=== PATIENT | female | born 1950 | race Caucasian/White ===

== ENCOUNTER 2018-03-29 08:20 | Emergency (ER) | payer OTHER, SELFPAY ==
[2018-03-29 08:22] VITALS: BP 120/68; PULSE 53; RESP 20; TEMP 36.4; O2SAT 98; BMI 15.3
--- NOTE | 2018-03-29 08:26 | ED.BACK ---
HPI - Back Pain/Injury General Chief Complaint: Back Pain/Injury Stated Complaint: Lower back px Time Seen by Provider: 03/29/18 08:25 Source: patient Mode of arrival: EMS Limitations: no limitations History of Present Illness HPI Narrative: Patient presents to the emergency department today via EMS for evaluation of an exacerbation of chronic back pain. She has a longstanding history of back pain and yesterday was bending and twisting and felt pain in her lower back. Today she was in such pain she could not get out of bed. [facility] brought her here, placed an IV and administered fentanyl 50 mcg IV prior to arrival MD Complaint: back pain and back injury Onset (ago): day(s) Duration: constant Similar Symptoms Previously: Yes Location: lumbar spine Severity: moderate Quality: burning and sharp Radiation: buttocks Severity scale (1-10): 5 Relieving factors: immobilization and medication Exacerbating factors: movement Context: turning/twisting Associated symptoms: denies other symptoms Related Data Home Medications Medication Instructions Recorded Confirmed diltiazem HCl 30 mg PO ACHS #0 01/01/18 03/29/18 Peak Flow Meter ea IH PRN PRN 03/29/18 Previous Rx's Medication Instructions Recorded tiotropium bromide [Spiriva with 1 puff INH QDAY #1 ea 12/27/17 HandiHaler] hydrocodone-acetaminophen 1 tab PO Q4-6H PRN #14 tab 03/29/18 methylprednisolone [Medrol (Darian)] See Label Instructions PO PER PKG 03/29/18 DIR #21 each Allergies Allergy/AdvReac Type Severity Reaction Status Date / Time hydrocodone [From VICODIN] Allergy Intermediate OVER Verified 03/29/18 08:22 STIMULATION Review of Systems Review of Systems All systems reviewed & are unremarkable except as noted in HPI and below Constitutional Denies chills, Denies fever(s), Denies lethargy and Denies weakness Eyes Denies change in vision, Denies eye discharge, Denies irritation and Denies loss of vision Cardiovascular Denies chest pain, Denies irregular heart rhythm, Denies lightheadedness, Denies palpitations and Denies orthopnea Gastrointestinal Gastrointestinal: Denies abdominal pain, Denies change in bowel habits, Denies diarrhea, Denies nausea and Denies vomiting Genitourinary Denies hematuria, Denies flank pain, Denies urinary incontinence and Denies urinary urgency Musculoskeletal Reports back pain, Reports limited range of motion and Reports radiating pain into limb Integumentary/Breasts Reports system reviewed and no additional complaints, except as docu Neurologic Reports system reviewed and no additional complaints, except as docu, Denies loss of vision and Denies weakness Endocrine Denies palpitations Hematologic/Lymphatic Denies easy bruising PFSH Family History Father Hypertension Type 2 diabetes mellitus Mother Hypertension Dementia Exam Narrative Exam Narrative: Pleasant 67-year-old female in obvious pain. Const General: cooperative, No healthy appearing, No comfortable, well developed, in distress, disheveled and frail appearing Nutritional Appearance: cachectic and malnourished Orientation: alert, awake, oriented x3 and not confused HENMT Head: normal to inspection Nose: external nose normal Face and sinus: normal facial exam Eyes General: appearance normal, both eyes and all related structures Eyelids: eyelids normal Pupils: PERRL EOM: EOM intact bilaterally Resp Effort & Inspection: normal respiratory effort Auscultation: diminished lung sounds Cardio Rate: regular rate Rhythm: regular rhythm Heart Sounds: no click, no gallops, no murmurs and no rubs Pulses: normal peripheral pulses GI Inspection: non-distended Palpation: soft, no hepatosplenomegaly, No guarding, No pulsatile mass and No tender Auscultation: normal bowel sounds Back/Spine/Pelvis Back: back tenderness and No CVA tenderness Skin General: no rashes or lesions noted Neuro General: alert, awake and oriented x3 Cognition: normal cognition Speech: speech normal Motor: muscle tone normal throughout and strength 5/5 throughout Sensory Exam: no sensory deficits noted DTR's: Rt Patellar: 2+ and Lt Patellar: 2+ Coordination: [id number] test normal Extrem General: normal to inspection MDM - Back Pain/Injury MDM Narrative Medical decision making narrative: Patient shows no sign of cauda equina or other true spinal emergency such as epidural abscess. She is able to ambulate after the above-stated therapies. Differential Diagnosis Differential diagnosis: Likely lumbar radiculopathy, sciatica, pyelonephritis, thoracic back pain and discitis Medical Records Attestation: I reviewed the patient's medical records. Course Orders Ordered: Discontinued Medications Hydromorphone HCl (Dilaudid) 1 mg IV NOW ONE Stop: 03/29/18 10:34 Last Admin: 03/29/18 11:02 Dose: 1 mg Ketorolac Tromethamine (Toradol) 15 mg IV NOW ONE Stop: 03/29/18 08:48 Last Admin: 03/29/18 09:11 Dose: 15 mg Methylprednisolone (Solu-Medrol 125 Mg Vial) 125 mg IV NOW ONE Stop: 03/29/18 08:49 Last Admin: 03/29/18 09:11 Dose: 125 mg Ondansetron HCl (Zofran) 4 mg IV NOW ONE Stop: 03/29/18 11:01 Last Admin: 03/29/18 11:02 Dose: 4 mg Reevaluation(s) Reevaluation #1: Patient experienced little relief after Toradol and Solu-Medrol but is able to ambulate without difficulty with Dilaudid. She will be sent home with a small prescription of hydrocodone and a Medrol Dosepak with encouragement to follow up closely with her primary care provider Time: 12:15 Last Vital Signs Temp 97.5 F L 03/29/18 08:22 Pulse 62 03/29/18 12:30 Resp 16 03/29/18 12:30 BP 141/84 H 03/29/18 12:30 Pulse Ox 96 03/29/18 12:30 Discharge Plan Departure Patient Disposition: Home, Self-Care Clinical Impression: Acute exacerbation of chronic low back pain Discharge Date/Time: 03/29/18 12:35 Interventions: ED Discharge Assessment Last Done: 03/29/18 12:35 Instructions: DI for Low Back Pain Activity Restrictions/Additional Instructions: You have been prescribed narcotic medications. While on these medications you cannot drive or operate heavy machinery. Additionally you cannot sign legal documents or perform any duties such as this. 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 Please understand that we cannot provide further refills of narcotics or controlled substances through the ED and your pain management will need to be through your Primary Care Provider Prescriptions: New hydrocodone-acetaminophen 5-325 mg tablet 1 tab PO Q4-6H PRN (Reason: pain) Qty: 14 RF: 0 methylprednisolone [Medrol (Darian)] 4 mg tablets,dose pack See Label Instructions PO PER PKG DIR Qty: 21 RF: 0 No Action tiotropium bromide [Spiriva with HandiHaler] 18 MCG capsule, w/inhalation device 1 puff INH QDAY Qty: 1 RF: 2 diltiazem HCl 30 MG tablet 30 mg PO ACHS Qty: 0 RF: 0 Peak Flow Meter IH PRN PRN (Reason: Dyspnea) RF: 0
[2018-03-29] MEDS: methylPREDNISolone 125 MG/2 ML VIAL IV (09:11)
[2018-03-29] MEDS: KETOROLAC 15 MG/ML VIAL IV (09:11)
[2018-03-29 09:29] VITALS: BP 160/52; PULSE 55; RESP 16; O2SAT 98
--- NOTE | 2018-03-29 10:37 | PC.NURSE ---
PT refused to ambulate. Stated that she was in too much pain.
[2018-03-29 11:00] VITALS: BP 143/58; PULSE 58; O2SAT 100
[2018-03-29] MEDS: HYDROMORPHONE 1 MG INJ IV (11:02)
[2018-03-29] MEDS: ONDANSETRON 4 MG/2 ML INJ IV (11:02)
[2018-03-29 11:22] VITALS: BP 143/58; PULSE 58; RESP 16
[2018-03-29 11:30] VITALS: BP 137/81; PULSE 58; RESP 15; O2SAT 97
[2018-03-29 12:30] VITALS: BP 141/84; PULSE 62; RESP 16; O2SAT 96
== END 2018-03-29 12:35 | disposition home or self-care (01) ==
PROVIDERS: Emergency Provider Emergency Medicine; PCP Family Medicine
DX: M54.5 Low back pain (principal); G89.29 Other chronic pain
CPT/HCPCS: 96374; 96375; 99283; 99284; J1170; J1885; J2405; J2930

== ENCOUNTER → 2019-04-02 11:29 | Outpatient (CLI) | payer OTHER, SELFPAY | PROVIDERS: PCP Family Medicine; Visit Provider Family Medicine | DX: R20.2 Paresthesia of skin (principal) | CPT/HCPCS: 95885; 95886; 95909 ==

== ENCOUNTER → 2019-08-25 10:12 | Outpatient (CLI) | payer OTHER, SELFPAY ==
[2019-08-25 10:49] LABS: BUN Creatinine Ratio 13.3 (6-22); Blood Urea Nitrogen 8 mg/dL (7-17); Calcium 9.8 mg/dL (8.4-10.2); Carbon Dioxide 31 mmol/L (22-32); Chloride 101 mmol/L (98-107); Estimated Glomerular Filt Rate > 60.0 mL/min (>60); Glucose 115 mg/dL (80-110); HEMOLYSIS < 15 (0-50); Potassium 3.9 mmol/L (3.4-5.1); Sodium 142 mmol/L (137-145)
--- NOTE | 2019-08-25 11:06 | DI.CT.S_ITS ---
PROCEDURE: CT CHEST W CON INDICATIONS: Lung Nodule TECHNIQUE: After the administration of intravenous contrast, 5 mm thick sections acquired from the pulmonary apices to the posterior costophrenic angles. 1 mm axial lung, 5 mm thick coronal and sagittal reformats and 7 mm axial MIP were acquired. For radiation dose reduction, the following was used: automated exposure control, adjustment of mA and/or kV according to patient size. COMPARISON: CT chest 02/21/2017, 02/14/2016. FINDINGS: Image quality: Excellent. Lungs and pleura: Moderate centrilobular emphysema. A few scattered pulmonary nodules: -Right upper lobe juxtapleural ill-defined nodular opacity, (3/41), unchanged since 2016 and may represent pleural apical scarring. -Small nodular opacity in the medial right upper lobe, (3/76), unchanged. -Calcified granuloma in the right lower lobe, (3/261), unchanged. -The previously described right middle lobe nodule is no longer identified. No new larger pulmonary nodules. No mass. Minimal thickening in the lingula. Minimal thickening along the right major fissure. No acute air space opacities. No pleural effusions or pneumothorax. Central and peripheral airways are patent and normal in caliber. Mediastinum: Heart size is prominent. No pericardial effusion. No mediastinal or hilar adenopathy by size criteria. Thoracic aorta and central pulmonary arteries are normal in size. No central pulmonary embolism. Esophagus is normal in caliber. No hiatal hernia. Bones and chest wall: No suspicious bony lesions. Thoracic spine DDD. No vertebral body compression fractures. No axillary or supraclavicular adenopathy by size criteria. Thyroid gland demonstrates a left lobe nodule measuring 1.1 cm, (2/90), and lobe nodule measuring 1.4 cm, (2/7). The right thyroid nodule appears larger than the CT from 2016. Abdomen: Visualized upper abdominal solid organs appear normal. Upper abdominal bowel loops are normal in caliber. IMPRESSION: 1. Small nodular opacities are stable compared to 2016 suggesting a benign etiology. No new or enlarging nodule. There is moderate centrilobular emphysema. The patient may qualifies for annual CT lung cancer screening. 2. Bilateral thyroid nodules. Thyroid ultrasound is recommended for further evaluation. Dictated by: Leeroy Goodwin M.D. on 08/25/2019 at 12:52 Approved by: Leeroy Goodwin M.D. on 08/25/2019 at 13:10
== END ==
PROVIDERS: PCP Family Medicine; Visit Provider Family Medicine
DX: R91.1 Solitary pulmonary nodule (principal); J43.2 Centrilobular emphysema; E04.2 Nontoxic multinodular goiter; F17.209 Nicotine dependence, unspecified, with unspecified nicotine-induced disorders
CPT/HCPCS: 36415; 71260; 80048; Q9967

== ENCOUNTER → 2019-09-16 12:11 | Outpatient (CLI) | payer OTHER, SELFPAY ==
--- NOTE | 2019-09-16 12:12 | DI.MG.S_ITS ---
BILATERAL DIGITAL SCREENING MAMMOGRAM 3D/2D WITH CAD: 09/16/2019 CLINICAL: Routine screening. Comparison is made to exams dated: 02/22/2016 mammogram, 10/06/2014 mammogram, and 09/08/2013 mammogram - [facility]. The tissue of both breasts is extremely dense, which lowers the sensitivity of mammography. Current study was also evaluated with a Computer Aided Detection (CAD) system. There are benign calcifications in both breasts. There also is a biopsy clip in the left breast. No significant masses, calcifications, or other findings are seen in either breast. There has been no significant interval change. IMPRESSION: There is no mammographic evidence of malignancy. A 1 year screening mammogram is recommended. This exam was interpreted at Station ID: [id number]. NOTE: For mammograms, a report in lay terms will be sent to the patient. Approximately 15% of breast malignancies will not be visualized mammographically. In the management of a palpable breast mass, a negative mammogram must not discourage biopsy of a clinically suspicious lesion. Electronically Signed By: Osmani coffey/mario:09/16/2019 13:04:25 letter sent: Normal Exam ACR BI-RADS Category 2: Benign Finding(s) 3342F
--- NOTE | 2019-09-16 12:12 | DI.US.S_ITS ---
PROCEDURE: US THYROID INDICATIONS: THYROID NODULE SEEN ON CT TECHNIQUE: Real-time scanning was performed of the thyroid gland, with image documentation. COMPARISON: [facility], CT, CT CHEST W CON, 08/25/2019, 11:33. FINDINGS: The Right: Thyroid lobe measures 3.8 x 1.8 x 1.6 cm, and is homogeneous in echotexture. Left: Thyroid lobe measures 3.2 x 1.4 x 1.6 cm, and is homogenous in echotexture. Isthmus: 3.0 mm thick. Nodule number: 1 Location: Left inferior Size: 1.3 x 1.0 x 1.0 cm. Composition: Predominantly solid Echogenicity: Hypoechoic Shape: wider than tall. Margins: Smooth Echogenic foci: Internal punctate echogenic foci Total points: 7 ACR TI-RADS category: Highly suspicious Nodule number: 2 Location: Left mid Size: 0.9 x 0.9 x 0.6 cm. Composition: Predominantly solid Echogenicity: Hypoechoic Shape: wider than tall. Margins: Smooth Echogenic foci: Internal punctate echogenic foci Total points: 7 ACR TI-RADS category: Highly suspicious Nodule number: 3 Location: Right superior Size: 1.5 mg 0.4 x 1.1 cm. Composition: Predominantly solid Echogenicity: Hypoechoic Shape: wider than tall. Margins: Smooth Echogenic foci: None Total points: 4 ACR TI-RADS category: Moderately suspicious IMPRESSION: Bilateral thyroid nodules as above. Recommend sonographic directed fine needle aspiration involving the left # 1 thyroid nodule and continued sonographic surveillance as detailed below. ACR TI-RADS definitions and recommendations: TI-RADS 1 (benign): 0 points. FNA not needed. TI-RADS 2 (not suspicious): 2 points. FNA not needed. TI-RADS 3 (mildly suspicious): 3 points. * FNA if 2.5 cm or larger, follow up if 1.5 cm or larger (at 1, 3, and 5 years). TI-RADS 4 (moderately suspicious): 4-6 points. * FNA if 1.5 cm or larger, follow up if 1 cm or larger (at 1, 2, 3, and 5 years). TI-RADS 5 (highly suspicious): 7 points or more. * FNA if 1 cm or larger, follow up if 0.5 cm or larger (every year for 5 years). Dictated by: Iván PECK Interpreted: Bharat Sanchez MD on 09/16/2019 at 14:55 Approved by: Bharat Sanchez M.D. on 09/17/2019 at 11:27
== END ==
PROVIDERS: PCP Family Medicine; Visit Provider Family Medicine
DX: Z12.31 Encounter for screening mammogram for malignant neoplasm of breast (principal); E04.2 Nontoxic multinodular goiter
CPT/HCPCS: 76536; 77063; 77067

== ENCOUNTER → 2019-09-24 11:10 | Outpatient (CLI) | payer OTHER, SELFPAY ==
[2019-09-24 13:14] LABS: TSH w/ Reflex to FT4 0.48 uIU/mL (0.47-4.68)
== END ==
PROVIDERS: PCP Family Medicine; Visit Provider Family Medicine
DX: I10 Essential (primary) hypertension (principal); M79.7 Fibromyalgia; R91.1 Solitary pulmonary nodule
CPT/HCPCS: 36415; 84443

== ENCOUNTER → 2020-01-05 11:26 | Outpatient (CLI) | payer OTHER, MEDICAID, SELFPAY ==
--- NOTE | 2020-01-05 11:30 | DI.RAD.S_ITS ---
PROCEDURE: XR CHEST 2V INDICATIONS: cough, dyspnea TECHNIQUE: 2 views of the chest were acquired. COMPARISON: [facility], , CHEST 2 VIEW, 01/25/2016, 11:00. FINDINGS: Surgical changes and devices: None. Lungs and pleura: Lungs are clear. No pleural effusions or pneumothorax. Hyperexpansion suggestive of COPD. There is scarring of the costophrenic angles. Mediastinum: Mediastinal contours are normal. Heart size is normal. Bones and chest wall: No suspicious bony abnormalities. Soft tissues appear unremarkable. IMPRESSION: No acute pulmonary process. Dictated by: Radha Garcia M.D. on 01/05/2020 at 14:06 Approved by: Radha Garcia M.D. on 01/05/2020 at 14:09
[2020-01-05 13:57] LABS: Blood Urea Nitrogen 8 mg/dL (7-17); Calcium 9.5 mg/dL (8.4-10.2); Carbon Dioxide 27 mmol/L (22-32); Chloride 103 mmol/L (98-107); Estimated Glomerular Filt Rate > 60.0 mL/min (>60); Glucose 133 mg/dL (80-110); HEMOLYSIS < 15 (0-50); Potassium 3.9 mmol/L (3.4-5.1); Sodium 140 mmol/L (137-145)
[2020-01-05 14:44] LABS: Vitamin D 25 Hydroxy (D3) < 12.8 ng/mL (30.0-100.0)
== END ==
PROVIDERS: PCP Family Medicine; Referring Provider Family Medicine; Visit Provider Family Medicine
DX: R06.00 Dyspnea, unspecified (principal); R05 Cough; M81.0 Age-related osteoporosis without current pathological fracture; M85.80 Other specified disorders of bone density and structure, unspecified site; I10 Essential (primary) hypertension
CPT/HCPCS: 36415; 71046; 80048; 82306

== ENCOUNTER → 2020-01-15 10:43 | Outpatient (CLI) | payer OTHER, MEDICAID, SELFPAY | PROVIDERS: PCP Family Medicine; Referring Provider Family Medicine; Visit Provider Family Medicine | DX: R05 Cough (principal); R06.00 Dyspnea, unspecified | CPT/HCPCS: 87070; 87205 ==

== ENCOUNTER → 2020-02-24 11:24 | Outpatient (CLI) | payer OTHER, MEDICAID, SELFPAY ==
[2020-02-24 11:52] LABS: Add Manual Diff / Slide Review NO; Basophils Absolute Auto 100 /uL (0-100); Basophils Percent Auto 1.2 % (0-2); Eosinophils Absolute Auto 100 /uL (0-450); Eosinophils Percent Auto 1.8 % (2-4); Hematocrit 42.3 % (36-46); Hemoglobin 14.3 g/dL (12.0-16.0); Lymphocytes Absolute Auto 1900 /uL (1100-4500); Lymphocytes Percent Auto 28.8 % (25-40); Mean Corpuscular HGB Conc 33.9 % (30-36); Mean Corpuscular Hemoglobin 29.5 PG (26-34); Mean Corpuscular Volume 87.1 fL (80-100); Monocytes Absolute Auto 600 /uL (0-900); Monocytes Percent Auto 8.5 % (3-14); Neutrophils Absolute Auto 3900 /uL (1500-7000); Neutrophils Percent Auto 59.7 % (50-75); Platelet Count 231 X10^3/uL (150-400); Red Blood Cell Count 4.86 X10^6/uL (4.0-5.2); Red Cell Distribution Width 13.8 % (11.6-14.8); White Blood Cell Count 6.6 X10^3/uL (4.5-11.0)
[2020-02-24 12:04] LABS: Erythrocyte Sedimentation Rate 10 MM/HR (0-20)
[2020-02-24 12:12] LABS: C-Reactive Protein Quant < 0.5 mg/dL (<1.0)
[2020-02-24 13:00] LABS: TSH w/ Reflex to FT4 0.56 uIU/mL (0.47-4.68)
== END ==
PROVIDERS: PCP Family Medicine; Referring Provider Family Medicine; Visit Provider Family Medicine
DX: E04.1 Nontoxic single thyroid nodule (principal); F17.209 Nicotine dependence, unspecified, with unspecified nicotine-induced disorders; R61 Generalized hyperhidrosis
CPT/HCPCS: 36415; 84443; 85025; 85651; 86140

== ENCOUNTER → 2020-09-07 11:45 | Outpatient (CLI) | payer OTHER, MEDICAID, SELFPAY ==
[2020-09-07 12:45] LABS: Blood Urea Nitrogen 8 mg/dL (7-17); Calcium 9.8 mg/dL (8.4-10.2); Carbon Dioxide 29 mmol/L (22-32); Chloride 104 mmol/L (98-107); Estimated Glomerular Filt Rate > 60.0 mL/min (>60); Glucose 117 mg/dL (80-110); HEMOLYSIS < 15 (0-50); Sodium 140 mmol/L (137-145)
[2020-09-07 12:58] LABS: Vitamin D 25 Hydroxy (D3) 31.4 ng/mL (30.0-100.0)
[2020-09-08 05:45] LABS: Alpha 1 Anti Trypsin 159 mg/dL (101-187)
[2020-09-13 09:15] LABS: Alanine Aminotransferase 13 IU/L (<35); Albumin 4.4 g/dL (3.5-5.0); Albumin Globulin Ratio 1.3 (1.0-2.8); Alkaline Phosphatase 65 U/L (38-126); Aspartate Aminotransferase 24 IU/L (14-36); BUN Creatinine Ratio 14.8 (6-22); Bilirubin Total 0.5 mg/dL (0.2-1.3); Blood Urea Nitrogen 8 mg/dL (7-17); Calcium 9.9 mg/dL (8.4-10.2); Carbon Dioxide 27 mmol/L (22-32); Chloride 106 mmol/L (98-107); Estimated Glomerular Filt Rate > 60.0 mL/min (>60); Globulin 3.5 g/dL (1.7-4.1); Glucose 122 mg/dL (80-110); HEMOLYSIS < 15 (0-50); Potassium 3.9 mmol/L (3.4-5.1); Sodium 141 mmol/L (137-145); Total Protein 7.9 g/dL (6.3-8.2)
== END ==
PROVIDERS: PCP Family Medicine; Referring Provider Family Medicine; Visit Provider Family Medicine
DX: M81.0 Age-related osteoporosis without current pathological fracture (principal); M85.80 Other specified disorders of bone density and structure, unspecified site; Z83.49 Family history of other endocrine, nutritional and metabolic diseases; I10 Essential (primary) hypertension
CPT/HCPCS: 36415; 80048; 80053; 82103; 82306

== ENCOUNTER → 2020-10-12 12:30 | Oncology outpatient (ONC) | payer OTHER, MEDICAID, SELFPAY ==
[2020-10-12 12:50] VITALS: BP 140/62; PULSE 67; RESP 16; TEMP 36.7; O2SAT 97
[2020-10-12] MEDS: ZOLEDRONIC ACID 5 MG in SODIUM CHLORIDE 0.9% 100 ML 425 ML IV (13:17)
== END ==
PROVIDERS: PCP Family Medicine; Referring Provider Family Medicine; Visit Provider Family Medicine
DX: M81.0 Age-related osteoporosis without current pathological fracture (principal)
CPT/HCPCS: 96365; J3489

== ENCOUNTER → 2021-02-08 13:02 | Outpatient (CLI) | payer OTHER, MEDICAID, SELFPAY ==
--- NOTE | 2021-03-01 11:13 | PM.CARDMON.1 ---
Certified Professional Midwife Report Referral & Results Date Patient Seen: 02/08/21 Requesting provider: Caroline Watkins Indication: Bradycardia Duration of monitoring (days): 7 Diary information: there were 7 patient triggered events and 6 patient diary entries Patient triggered events were associated with (within 45 seconds) sinus rhythm, PACs, and PVCs Patient diary events were associated with ( within 45 seconds) sinus rhythm and PACs Data: minimum heart rate identified was 47 beats per minute at 11:49 on 02/15/2021 Maximum sinus heart rate was 102 beats per minute at 13:30 on 02/08/2021 Maximum overall heart rate was 152 beats per minute at 08:20 on 02/13/2021 during a run of nonsustained ventricular tachycardia Less than 1% of identified beats were ventricular or supraventricular ectopic in origin, which would classify them as rare. There was 1 run of nonsustained monomorphic ventricular tachycardia as above with a duration of 5 beats at a rate of 150 beats per minute Therefore runs of SVT the fastest being at 152 beats per minute and 9 beats in duration which was also the longest run No pauses Overall patient's maximum heart rate somewhat limited but minimum heart rate not necessarily bradycardic Impression: 7 day retail gift card merchandising showing 1 run of nonsustained monomorphic ventricular tachycardia as above and very rare very short runs of SVT Otherwise rare PACs and PVCs Clinical correlation suggested
== END ==
PROVIDERS: PCP Family Medicine; Referring Provider Family Medicine; Visit Provider Family Medicine
DX: R00.1 Bradycardia, unspecified (principal); I48.91 Unspecified atrial fibrillation
CPT/HCPCS: 93242; 93244

== ENCOUNTER → 2021-02-22 13:12 | Outpatient (CLI) | payer OTHER, MEDICAID, SELFPAY ==
--- NOTE | 2021-02-22 13:16 | DI.ECHO.S_ITS ---
[place] [facility]---------+ [facility] +---------+ : : [address] : : : : [id number] : : : : Phone: [phone] Echocardiogram Report + + :Name: LALITHA MARMOLEJO Study Date: 02/22/2021 Height: 62 in : :[facility] ReadingLocation: Weight: 85 lb : : Gender: Female BSA: 1.3 m2 : :: 1950 Age: 70 yrs BP: 160/82 mmHg: :Reason For Study: BRADYCARDIA : :Ordering Physician: FAITH, : :PATY Performed By: Meredith Byrnes : :Referring: PATY CUEVAS : + + Interpretation Summary 1) Normal left ventricular thickness, size, wall motion, and systolic function (EF 60-65%). 2) Normal right ventricular size and function. 3) There is mild aortic regurgitation. 4) Hypertension present during the study (BP 160/82mmHg). 5) There is mild luminal irregularity and echogenicity in the abdominal aorta, suggestive of aortic atherosclerotic disease. 6) Compared to the Echo done 01/01/2018, no significant change in cardiac structure Procedure: A two-dimensional transthoracic echocardiogram with color flow and Doppler was performed. The study quality was technically adequate. Comparison is made with the echocardiogram of 01/01/2018. The patient was in sinus bradycardia with heart rates between 55-63 bpm during the exam. Left Ventricle: The left ventricle is normal in size and wall thickness. The ejection fraction is estimated to be 60-65%. Left ventricular systolic function appears normal without focal wall motion abnormalities. Diastolic parameters suggest probable normal left ventricular diastolic function and normal filling pressures. Right Ventricle: The right ventricle is normal size. The right ventricular systolic function is normal. Atria: Both atria are normal in size. Mitral Valve: There is systolic anterior motion of the chordal apparatus. The mitral valve leaflets appear mildly thickened, but open well. There is trace mitral regurgitation. Aortic Valve: The aortic valve is trileaflet. The aortic valve opens well. The aortic valve is slightly calcified. There is no aortic valve stenosis. There is mild aortic regurgitation. Tricuspid Valve: The tricuspid valve is normal in structure and function. There is trace tricuspid regurgitation. Pulmonary artery pressures cannot be estimated because of the lack of a measurable TR jet velocity but the IVC suggests a CVP of around 3 mmHg. Pulmonic Valve: The pulmonic valve is not well visualized. There is no pulmonic valvular regurgitation. Great Vessels: The aortic root is normal size. The dimensions of the ascending aorta are normal. There is mild luminal irregularity and echogenicity in the abdominal aorta, suggestive of aortic atherosclerotic disease. The IVC is of normal diameter and collapses greater than 50% with a sniff. This suggests a low right atrial pressure of 3 mm Hg. Pericardium/ Pleura There is no pericardial effusion. There is no pleural effusion. MMode/2D Measurements & Calculations LVIDd: 4.0 cm LVOT diam: 1.7 cm LVIDs: 2.6 cm Ao root diam: 2.5 cm FS: 35.2 % asc Aorta Diam: 2.5 cm IVSd: 0.78 cm Ao Arch Diam (Prox Trans): 2.1 cm LVPWd: 0.64 cm LV castillo. diameter/BSA (cm/m^2): 3.0 LV sys. diameter/BSA (cm/m^2): 2.0 LA A2 area: 10.0 cm2 RA long axis: 3.5 cm LA A4 area: 8.3 cm2 RA area: 8.7 cm2 LA length (vol): 3.2 cm RA vol: 18.6 ml LA vol: 21.7 ml RA : 14.0 ml/m2 LA vol index: 16.3 ml/m2 IVC diam: 0.96 cm RVD1 (basal): 2.2 cm TAPSE: 1.6 cm Doppler Measurements & Calculations Ao V2 max: 143.6 cm/sec LVOT Max Moshe: 157.6 cm/sec Ao V2 mean: 88.3 cm/sec LV V1 max P.9 mmHg Ao max P.2 mmHg LV V1 VTI: 27.4 cm Ao mean P.6 mmHg LATANYA(I,D): 2.1 cm2 Ao V2 VTI: 29.6 cm LATANYA(V,D): 2.5 cm2 sev ratio: 0.93 LATANYA indexed to BSA (cm^2/m^2): 1.6 MV E max moshe: 62.1 cm/sec PA V2 max: 92.8 cm/sec Med Peak E' Moshe: 6.0 cm/sec PA V2 mean: 66.9 cm/sec E/E' med: 10.3 PA mean P.0 mmHg Lat Peak E' Moshe: 6.3 cm/sec PA pr(Accel): 24.2 mmHg E/E' lat: 9.8 E/e' average: 10.1 MV dec time: 0.26 sec SV(OT): 61.5 ml Reading Physician:05:09 PM
== END ==
PROVIDERS: PCP Family Medicine; Referring Provider Family Medicine; Visit Provider Family Medicine
DX: R00.1 Bradycardia, unspecified (principal)
CPT/HCPCS: 93306

== ENCOUNTER → 2021-11-24 11:29 | Outpatient (CLI) | payer OTHER, MEDICAID, SELFPAY ==
--- NOTE | 2021-11-24 11:30 | DI.US.S_ITS ---
PROCEDURE: US THYROID INDICATIONS: thyroid nodule stability TECHNIQUE: Real-time scanning was performed of the thyroid gland, with image documentation. COMPARISON: [facility], US, US THYROID, 09/16/2019, 12:38. FINDINGS: Right: Thyroid lobe measures 3.9 x 1.5 x 1.7 cm, and is diffusely heterogeneous in echotexture. Left: Thyroid lobe measures 3.0 x 1.3 x 1.1 cm, and is diffusely heterogeneous in echotexture. Isthmus: 3.1 mm thick. Nodule number: 1 Location: Left superior Size: Unchanged at 1.0 x 0.7 x 0.9 cm. Composition: Mixed cystic and solid Echogenicity: Heterogeneous Shape: wider than tall. Margins: Smooth Echogenic foci: None Total points: 3 ACR TI-RADS category: Mildly suspicious Nodule number: 2 Location: Left mid Size: Decreased at 0.5 x 0.4 x 0.4 cm. Composition: Solid Echogenicity: Predominantly hyperechoic Shape: wider than tall. Margins: Smooth Echogenic foci: None Total points: 3 ACR TI-RADS category: Mildly suspicious Nodule number: 3 Location: Right superior Size: Unchanged 1.4 x 0.8 x 1.4 cm. Composition: Solid Echogenicity: Isoechoic Shape: wider than tall. Margins: Smooth Echogenic foci: Note Total points: 3 ACR TI-RADS category: Mildly suspicious IMPRESSION: Stable appearance of bilateral thyroid nodules. TR 3, mildly suspicious and less than 1.5 cm in size. No further imaging follow-up is required. ACR TI-RADS definitions and recommendations: TI-RADS 1 (benign): 0 points. FNA not needed. TI-RADS 2 (not suspicious): 2 points. FNA not needed. TI-RADS 3 (mildly suspicious): 3 points. * FNA if 2.5 cm or larger, follow up if 1.5 cm or larger (at 1, 3, and 5 years). TI-RADS 4 (moderately suspicious): 4-6 points. * FNA if 1.5 cm or larger, follow up if 1 cm or larger (at 1, 2, 3, and 5 years). TI-RADS 5 (highly suspicious): 7 points or more. * FNA if 1 cm or larger, follow up if 0.5 cm or larger (every year for 5 years). Dictated by: Iván PECK Interpreted: Leeroy Goodwin MD on 11/24/2021 at 11:58 Transcribed by: ALLA on 11/24/2021 at 12:01 Approved by: Leeroy Goodwin M.D. on 11/24/2021 at 15:17
== END ==
PROVIDERS: PCP Family Medicine; Referring Provider Family Medicine; Visit Provider Family Medicine
DX: E04.2 Nontoxic multinodular goiter (principal)
CPT/HCPCS: 76536

== ENCOUNTER 2023-03-13 12:00 | Outpatient (RCR) | payer OTHER, MEDICAID, SELFPAY ==
--- NOTE | 2022-03-06 14:02 | PT.OPPOC ---
Physical, Occupational & Speech Therapy At [facility] Current Diagnoses Pelvic and perineal pain (03/06/22) Visit Care Team Role Provider Type Yasir Foley DO Attending Provider Physician Family Provider Primary Care Provider Referring Provider Specialty: Family Practice Address: [address] [place] [address], [id number] Email: Plan Of Care PT-OP-T Assessment and Plan Start: 03/06/22 10:37 Freq: Status: Active Protocol: Document 03/06/22 10:38 [facility] (Rec: 03/07/22 13:59 [facility] [id number]) Physical Therapy Assessment Rehab Potential Rehabilitation Potential Good Evaluation Complexity Number of Personal Factors/Comorbidities 0 Number of Body Systems Impaired 1-2 Clinical Presentation at Evaluation Stable Impairments Impairments Activity Tolerance,Functional Activities,Functional Mobility ,Pain,Posture,ROM,Soft Tissue Mobility,Strength Goals 3 Impairment guarding, tightness, pain of the adductor attachments to the pubic bone, pain over the pubic tubercles bilaterally Leasing Manager Goal (LTG) Pt is educated in stretches for her hips and along with manual therapy techniques there is improved mobility of the adductors with decreased c /o pain LTG Duration 12 weeks 2 Impairment upper neck breather with poor excursion of the diaphragm, pt has difficult expanding her belly with breathing and uses her upper neck muscles Short Term Goal (STG) pt is educated on diaphragmatic breathing to improve use of the diaphragm, improve fascial mobility of the abdominal wall, and decrease upper neck and chest breathing STG Duration 5 weeks pain Impairment pelvic pain rated 7/10 worse with standing activities [facility] Goal (LTG) With stretches and manual therapy work Irma reports a decrease in pain and is able to increase her standing duration as well and increase her tolerance for walking LTG Duration 12 weeks Assessment Summary Assessment Irma is a 71 year old female referred to PT for chronic pelvic pain that she describes as starting in her pelvic floor region and then pulling up through her abdomen , into her diaphragm shoulders and neck. This pain is chronic in nature and she has tried previous PT but not pelvic floor PT. Her chief complaint of pain with examination is at the adductor attachments to the pubic ramus and with palpation over the pubic tubercles B. She is very restricted throughout her abdominal fascia and in the area of the diaphragm. Irma was guided through diaphragmatic breathing and this was very difficult for her. She has decreased diaphragm excursion and is a neck breather. She has a history of COPD. Pelvic floor examination was attempted today however pt was in a lot of pain with attempt to examine the pelvic floor so examination was stopped. It is clear her pelvic floor is also guarded. Treatment will start with working on decreasing tension in the adductor attachments, stretches for the pelvic floor , diaphragmatic breathing and MFR for improved fascial mobility of the abdominal wall . Physical Therapy Plan Frequency and Duration Frequency of Treatment 2x/Week Duration of Treatment 12 Plan of Care Start Date 03/06/22 Plan of Care End Date 05/29/22 Therapeutic Interventions Therapeutic Interventions Home Exercise Program,Manual Therapy,Neuromuscular Re- education,Patient/Caregiver Education,Self-Care/Home Management,Soft Tissue Mobilization,Therapeutic Activities,Therapeutic Exercises Modalities Ultrasound Next Visit Focus/Plan Next Note Type Treatment Note Next Visit Plan trial of ultrasound over the proximal adductor attachments Plan of Care Dates Plan of Care Start Date 03/06/22 Plan of Care End Date 05/29/22 Electronically Signed by: Crissy Lees, PT 03/07/22 4713 If you are in agreement with this Plan of Care, please return a signed and dated copy. I have reviewed this Plan of Care and certify that the skilled therapy services above are required to meet the patient?s needs. Physician Signature Date Printed Name and Credentials Clinical Instructor Signature Printed Name and Credentials
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
--- NOTE | 2022-05-24 14:28 | PT.OPPOC ---
Physical, Occupational & Speech Therapy At [facility] Current Diagnoses Pelvic and perineal pain (05/24/22) Visit Care Team Role Provider Type Yasir Foley DO Attending Provider Physician Family Provider Primary Care Provider Referring Provider Specialty: Family Practice Address: [address] [place] [address], [id number] Email: Plan Of Care PT-OP-T Assessment and Plan Start: 03/06/22 10:37 Freq: Status: Active Protocol: Document 05/24/22 11:15 [facility] (Rec: 05/24/22 14:28 [facility] [id number]) Physical Therapy Assessment Rehab Potential Rehabilitation Potential Good Evaluation Complexity Number of Personal Factors/Comorbidities 0 Number of Body Systems Impaired 1-2 Clinical Presentation at Evaluation Stable Impairments Impairments Activity Tolerance,Functional Activities,Functional Mobility ,Pain,Posture,ROM,Soft Tissue Mobility,Strength Goals 3 Impairment guarding, tightness, pain of the adductor attachments to the pubic ramus, pain over the pubic tubercles bilaterally Drag Sawyer Goal (LTG) Pt is educated in stretches for her hips and along with manual therapy techniques there is improved mobility of the adductors with decreased c /o pain pt has been educated in stretches however she feels the stretches make her worse. I started her with core stabilization today to see if a more stable core helps her adductors to stop guarding as much LTG Duration 12 weeks 2 Impairment upper neck breather with poor excursion of the diaphragm, pt has difficult expanding her belly with breathing and uses her upper neck muscles Short Term Goal (STG) pt is educated on diaphragmatic breathing to improve use of the diaphragm, improve fascial mobility of the abdominal wall, and decrease upper neck and chest breathing GOAL MET STG Duration 5 weeks pain Impairment pelvic pain rated 7/10 worse with standing activities Drag Sawyer Goal (LTG) With stretches, manual therapy work, and core stabilization Irma reports a decrease in pain and is able to increase her standing duration as well and increase her tolerance for walking No change LTG Duration 12 weeks Assessment Summary Assessment Irma has been seen x 5 visits in PT. She feels the manual therapy treatments help but only temporarily. She feels the stretches make her worse. Today I worked with her on adding in some core strength to see if we stabilize her more if the adductors and hip flexors will stop guarding as much. She would like to continue PT and tolerated abdominal and pelvic floor bracing well today Physical Therapy Plan Frequency and Duration Frequency of Treatment 2x/Week Duration of Treatment 12 Plan of Care Start Date 05/24/22 Plan of Care End Date 07/25/22 Therapeutic Interventions Therapeutic Interventions Home Exercise Program,Manual Therapy,Neuromuscular Re- education,Patient/Caregiver Education,Self-Care/Home Management,Soft Tissue Mobilization,Therapeutic Activities,Therapeutic Exercises Modalities Ultrasound Next Visit Focus/Plan Next Note Type Treatment Note Next Visit Plan progress core stabilization as pt is able to tolerate, continue manual therapy work to address pelvic pain adductor pain Plan of Care Dates Plan of Care Start Date 05/24/22 Plan of Care End Date 07/25/22 Electronically Signed by: Crissy Lees, PT 05/24/22 [id number] If you are in agreement with this Plan of Care, please return a signed and dated copy. I have reviewed this Plan of Care and certify that the skilled therapy services above are required to meet the patient?s needs. Physician Signature Date Printed Name and Credentials Clinical Instructor Signature Printed Name and Credentials
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
--- NOTE | 2022-07-25 14:17 | PT.OPPOC ---
Physical, Occupational & Speech Therapy At [facility] Current Diagnoses Pelvic and perineal pain (07/25/22) Visit Care Team Role Provider Type Rikki Foley DO Attending Provider Physician Family Provider Primary Care Provider Referring Provider Specialty: Family Practice Address: [address] [place] [address], [id number] Email: Plan Of Care PT-OP-T Assessment and Plan Start: 03/06/22 10:37 Freq: Status: Active Protocol: Document 07/25/22 11:15 [facility] (Rec: 07/25/22 14:14 [facility] [id number]) Physical Therapy Assessment Goals 3 Impairment guarding, tightness, pain of the adductor attachments to the pubic ramus, pain over the pubic tubercles bilaterally Nursing Home Goal (LTG) Pt is educated in stretches for her hips and along with manual therapy techniques there is improved mobility of the adductors with decreased c /o pain pt has been educated in stretches however she feels the stretches make her worse. I started her with core stabilization today to see if a more stable core helps her adductors to stop guarding as much pt does not have a lot of carry over for home, continue to encourage HEP LTG Duration 12 weeks 2 Impairment upper neck breather with poor excursion of the diaphragm, pt has difficult expanding her belly with breathing and uses her upper neck muscles Short Term Goal (STG) pt is educated on diaphragmatic breathing to improve use of the diaphragm, improve fascial mobility of the abdominal wall, and decrease upper neck and chest breathing GOAL MET STG Duration 5 weeks pain Impairment pelvic pain rated 7/10 worse with standing activities Certified Substance Abuse Counselor Goal (LTG) With stretches, manual therapy work, and core stabilization Irma reports a decrease in pain and is able to increase her standing duration as well and increase her tolerance for walking Some progress LTG Duration 12 weeks Assessment Summary Assessment Irma is doing better with diaphragmatic breathing, she tolerated MET for right anterior innominant well. Still really tight at the area of the iliocecal valve and transverse colon. She responds well to manual therapy techniques and feels PT is helping her. She would like to continue PT Physical Therapy Plan Frequency and Duration Frequency of Treatment 2x/Week Duration of Treatment 12 Plan of Care Start Date 05/24/22 Plan of Care End Date 07/25/22 Therapeutic Interventions Therapeutic Interventions Home Exercise Program,Manual Therapy,Neuromuscular Re- education,Patient/Caregiver Education,Self-Care/Home Management,Soft Tissue Mobilization,Therapeutic Activities,Therapeutic Exercises Modalities Ultrasound Next Visit Focus/Plan Next Note Type Treatment Note Next Visit Plan progress core stabilization as pt is able to tolerate, continue manual therapy work to address pelvic pain adductor pain Plan of Care Dates Plan of Care Start Date 05/24/22 Plan of Care End Date 07/25/22 Electronically Signed by: Crissy Lees, PT 07/25/22 4632 If you are in agreement with this Plan of Care, please return a signed and dated copy. I have reviewed this Plan of Care and certify that the skilled therapy services above are required to meet the patient?s needs. Physician Signature Date Printed Name and Credentials Clinical Instructor Signature Printed Name and Credentials
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
--- NOTE | 2022-08-21 17:25 | PT.OPPOC ---
Physical, Occupational & Speech Therapy At [facility] Current Diagnoses Pelvic and perineal pain (08/21/22) Visit Care Team Role Provider Type Rikki Foley DO Attending Provider Physician Family Provider Primary Care Provider Referring Provider Specialty: Family Practice Address: [address] [place] [address], [id number] Email: Plan Of Care PT-OP-T Assessment and Plan Start: 03/06/22 10:37 Freq: Status: Active Protocol: Document 08/21/22 17:17 [facility] (Rec: 08/21/22 17:24 [facility] [id number]) Physical Therapy Assessment Goals 3 Impairment guarding, tightness, pain of the adductor attachments to the pubic ramus, pain over the pubic tubercles bilaterally [facility] Goal (LTG) Pt is educated in stretches for her hips and along with manual therapy techniques there is improved mobility of the adductors with decreased c /o pain pt has been educated in stretches however she feels the stretches make her worse. I started her with core stabilization today to see if a more stable core helps her adductors to stop guarding as much pt does not have a lot of carry over for home, continue to encourage HEP LTG Duration 12 weeks 2 Impairment upper neck breather with poor excursion of the diaphragm, pt has difficult expanding her belly with breathing and uses her upper neck muscles Short Term Goal (STG) pt is educated on diaphragmatic breathing to improve use of the diaphragm, improve fascial mobility of the abdominal wall, and decrease upper neck and chest breathing GOAL MET STG Duration 5 weeks pain Impairment pelvic pain rated 7/10 worse with standing activities Security Officer Supervisor Goal (LTG) With stretches, manual therapy work, and core stabilization Irma reports a decrease in pain and is able to increase her standing duration as well and increase her tolerance for walking Some progress LTG Duration 12 weeks Progress Towards Goals Progress Towards Goals Slow Progress due to Activity Tolerance Assessment Summary Assessment Irma is still c/o pain with sharp abdominal pain. She seems to get a little relief from PT visits however this is not staying. She does have a area on the right side of her abdominal wall near the ileocecal valve that feels very firm/hard. I am wondering if further diagnostic tests may be beneficial for her. Her next visit is not until the end of August with PT Physical Therapy Plan Frequency and Duration Frequency of Treatment 2x/Week Duration of treatment (weeks) 12 Plan of Care Start Date 08/21/22 Plan of Care End Date 11/21/21 Therapeutic Interventions Therapeutic Interventions Home Exercise Program,Manual Therapy,Neuromuscular Re- education,Patient/Caregiver Education,Self-Care/Home Management,Soft Tissue Mobilization,Therapeutic Activities,Therapeutic Exercises Next Visit Focus/Plan Next Note Type Treatment Note Next Visit Plan progress core stabilization as pt is able to tolerate, continue manual therapy work to address pelvic pain adductor pain Plan of Care Dates Plan of Care Start Date 08/21/22 Plan of Care End Date 11/21/21 Electronically Signed by: Crissy Lees, PT 08/21/22 [id number] If you are in agreement with this Plan of Care, please return a signed and dated copy. I have reviewed this Plan of Care and certify that the skilled therapy services above are required to meet the patient?s needs. Physician Signature Date Printed Name and Credentials Clinical Instructor Signature Printed Name and Credentials
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
--- NOTE | 2022-12-26 13:50 | PT.OPPOC ---
Physical, Occupational & Speech Therapy At [facility] Current Diagnoses Pelvic and perineal pain (12/26/22) Visit Care Team Role Provider Type Rikki Foley DO Attending Provider Physician Family Provider Primary Care Provider Referring Provider Specialty: Family Practice Address: [address] [place] [address], [id number] Email: Plan Of Care PT-OP-T Assessment and Plan Start: 03/06/22 10:37 Freq: Status: Active Protocol: Document 12/26/22 12:05 [facility] (Rec: 12/26/22 13:48 [facility] [id number]) Physical Therapy Assessment Goals 3 Impairment guarding, tightness, pain of the adductor attachments to the pubic ramus, pain over the pubic tubercles bilaterally Intermediate Goal (LTG) Pt is educated in stretches for her hips and along with manual therapy techniques there is improved mobility of the adductors with decreased c /o pain pt has been educated in stretches however she feels the stretches make her worse. I started her with core stabilization today to see if a more stable core helps her adductors to stop guarding as much pt does not have a lot of carry over for home, continue to encourage HEP LTG Duration 12 weeks 2 Impairment upper neck breather with poor excursion of the diaphragm, pt has difficult expanding her belly with breathing and uses her upper neck muscles Short Term Goal (STG) pt is educated on diaphragmatic breathing to improve use of the diaphragm, improve fascial mobility of the abdominal wall, and decrease upper neck and chest breathing GOAL MET but pt has not been working on a HEP this past month and had difficulty with diaphragmatic breathing today STG Duration 5 weeks pain Impairment pelvic pain rated 7/10 worse with standing activities Intermediate Goal (LTG) With stretches, manual therapy work, and core stabilization Irma reports a decrease in pain and is able to increase her standing duration as well and increase her tolerance for walking Some progress LTG Duration 12 weeks Assessment Summary Assessment Jacqueline blanchard returns to PT today after not being seen since Nov 28. She has been taking care of her following surgery. She responded well today to iliopsoas release. I am encouraging daily walking, working on her stretches, and diaphragmatic breathing. Irma would benefit from continued PT Physical Therapy Plan Frequency and Duration Frequency of Treatment 2x/Week Duration of treatment (weeks) 12 Plan of Care Start Date 12/26/22 Plan of Care End Date 03/20/23 Therapeutic Interventions Therapeutic Interventions Home Exercise Program,Manual Therapy,Neuromuscular Re- education,Patient/Caregiver Education,Self-Care/Home Management,Soft Tissue Mobilization,Therapeutic Activities,Therapeutic Exercises Next Visit Focus/Plan Next Note Type Treatment Note Next Visit Plan progress core stabilization as pt is able to tolerate, continue manual therapy work of releasing the iliopsoas to address pelvic pain and adductor pain Plan of Care Dates Plan of Care Start Date 12/26/22 Plan of Care End Date 03/20/23 Electronically Signed by: Crissy Lees, PT 12/26/22 [id number] If you are in agreement with this Plan of Care, please return a signed and dated copy. I have reviewed this Plan of Care and certify that the skilled therapy services above are required to meet the patient?s needs. Physician Signature Date Printed Name and Credentials Clinical Instructor Signature Printed Name and Credentials
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
== END 2023-04-25 14:45 | disposition home or self-care (01) ==
LOC: PHYS 12:00
PROVIDERS: Family Provider Family Medicine; PCP Family Medicine; Referring Provider Family Medicine; Visit Provider Family Medicine
DX: R10.2 Pelvic and perineal pain (principal)
CPT/HCPCS: 97035; 97110; 97140; 97161

== ENCOUNTER → 2023-04-02 12:06 | Outpatient (CLI) | payer OTHER, MEDICAID, SELFPAY ==
--- NOTE | 2023-04-02 12:06 | DI.US.S_ITS ---
PROCEDURE: US ABDOMEN COMPLETE INDICATIONS: DIFFUSE PAIN TECHNIQUE: Real-time scanning was performed of the abdominal and retroperitoneal organs, with image documentation. COMPARISON: None. FINDINGS: Liver: Liver is normal in size and homogeneous in echotexture. Gallbladder: No findings of gallstones or sludge are seen. The gallbladder wall is not thickened, measuring 3 mm or less. Two gallbladder wall polyps are seen, with the largest measuring 3 mm. No specific pericholecystic fluid is seen. The sonographic Shetty sign is negative. Biliary ducts: Intrahepatic bile ducts are non-dilated. Extrahepatic bile duct caliber measures 3-4 mm. Normal is 6-7 mm or less in diameter, or 10 mm or less post-cholecystectomy. Pancreas: Not well seen, obscured by overlying bowel gas. Spleen: Spleen is normal in size and homogeneous in echotexture. Kidneys: Kidneys are normal in size and echotexture. Right kidney measures 10.8 cm long; left kidney measures 10.3 cm long. No hydronephrosis or nephrolithiasis. No solid masses. Aorta: Visualized aorta is normal in caliber at less than 3 cm. Iliacs: Proximal common iliac arteries are normal in caliber at less than 2.5 cm. IVC: Intrahepatic inferior vena cava is patent. Miscellaneous: No free abdominal fluid. IMPRESSION: A cause of abdominal pain is not identified. The gallbladder demonstrates a normal sonographic appearance. No biliary dilatation is seen. No abdominal aortic aneurysm is seen. Dictated by: Domingo Su M.D. on 04/02/2023 at 13:21 Approved by: Domingo Su M.D. on 04/02/2023 at 13:22
== END ==
PROVIDERS: Family Provider Family Medicine; PCP Family Medicine; Referring Provider Family Medicine; Visit Provider Family Medicine
DX: R10.9 Unspecified abdominal pain (principal)
CPT/HCPCS: 76700

== ENCOUNTER → 2023-06-18 10:22 | Outpatient (CLI) | payer OTHER, MEDICAID, SELFPAY ==
[2023-06-18 13:12] LABS: Cholesterol 266 mg/dL (140-199); HDL Cholesterol 61 mg/dL (40-60); LDL Cholesterol Calculated 174 mg/dL (<100); Triglycerides 157 mg/dL (35-150)
[2023-06-18 18:32] LABS: TSH w/ Reflex to FT4 0.31 uIU/mL (0.47-4.68)
[2023-06-18 19:57] LABS: Free T4, Direct Thyroxine 1.54 ng/dL (0.78-2.19)
[2023-06-19 07:36] LABS: Alpha 1 Anti Trypsin 161 mg/dL (101-187)
== END ==
PROVIDERS: Family Provider Family Medicine; PCP Family Medicine; Referring Provider Family Medicine; Visit Provider Family Medicine
DX: I10 Essential (primary) hypertension (principal); E04.1 Nontoxic single thyroid nodule; J44.9 Chronic obstructive pulmonary disease, unspecified; R05.9 Cough, unspecified
CPT/HCPCS: 36415; 80061; 82103; 84439; 84443

== ENCOUNTER → 2023-11-28 12:43 | Outpatient (CLI) | payer OTHER, MEDICAID, SELFPAY ==
[2023-11-28 13:20] LABS: Add Manual Diff / Slide Review NO; Basophils Absolute Auto 100 /uL (0-100); Eosinophils Absolute Auto 0 /uL (0-450); Eosinophils Percent Auto 0.6 % (2-4); Hematocrit 42.3 % (36-46); Hemoglobin 14.2 g/dL (12.0-16.0); Lymphocytes Absolute Auto 1500 /uL (1100-4500); Lymphocytes Percent Auto 20.2 % (25-40); Mean Corpuscular HGB Conc 33.6 % (30-36); Mean Corpuscular Hemoglobin 29.7 PG (26-34); Mean Corpuscular Volume 88.5 fL (80-100); Monocytes Absolute Auto 500 /uL (0-900); Monocytes Percent Auto 7.1 % (3-14); Neutrophils Absolute Auto 5400 /uL (1500-7000); Neutrophils Percent Auto 71.1 % (50-75); Platelet Count 273 X10^3/uL (150-400); Red Blood Cell Count 4.78 X10^6/uL (4.0-5.2); White Blood Cell Count 7.6 X10^3/uL (4.5-11.0)
[2023-11-28 14:49] LABS: Alanine Aminotransferase 27 IU/L (<35); Albumin 4.5 g/dL (3.5-5.0); Albumin Globulin Ratio 1.3 (1.0-2.8); Alkaline Phosphatase 64 U/L (38-126); Aspartate Aminotransferase 30 IU/L (14-36); BUN Creatinine Ratio 10.5 (6-22); Bilirubin Total 0.6 mg/dL (0.2-1.3); Blood Urea Nitrogen 6 mg/dL (7-17); Calcium 9.8 mg/dL (8.4-10.2); Carbon Dioxide 26 mmol/L (22-32); Chloride 101 mmol/L (98-107); Cholesterol 257 mg/dL (140-199); Estimated Glomerular Filt Rate > 60 mL/min (>60); Globulin 3.5 g/dL (1.7-4.1); Glucose 111 mg/dL (80-110); HDL Cholesterol 52 mg/dL (40-60); HEMOLYSIS < 15 (0-50); LDL Cholesterol Calculated 181 mg/dL (<100); Potassium 4.1 mmol/L (3.4-5.1); Sodium 139 mmol/L (137-145); Triglycerides 119 mg/dL (35-150)
[2023-11-28 15:23] LABS: Free T3, Triiodothyronine Free 3.22 pg/mL (2.77-5.27); Free T4, Direct Thyroxine 1.25 ng/dL (0.78-2.19)
[2023-11-28 15:27] LABS: Thyroid Stimulating Hormone 0.344 uIU/mL (0.47-4.68)
== END ==
PROVIDERS: Family Provider Family Medicine; PCP Family Medicine; Referring Provider Family Medicine; Visit Provider Family Medicine
DX: I10 Essential (primary) hypertension (principal); E55.9 Vitamin D deficiency, unspecified; Z83.49 Family history of other endocrine, nutritional and metabolic diseases; E78.2 Mixed hyperlipidemia; E04.1 Nontoxic single thyroid nodule; R63.6 Underweight
CPT/HCPCS: 36415; 80053; 80061; 82306; 84439; 84443; 84481; 85025

== ENCOUNTER 2024-01-15 07:14 | Day surgery (SDC) | payer OTHER, MEDICAID, SELFPAY ==
--- NOTE | 2024-01-15 | PATH_ITS ---
[facility] Accession Number: [id number] No. of containers..04 Tissue . 01 Material submitted: . PART A: stomach - BX OF ANTRUM PART B: stomach - FUNDUS PART C: colon - TRANSVERSE POLYP PART D: rectum - RECTAL POLYP . 01 Diagnosis: A. GASTRIC ANTRUM, BIOPSY: Antral mucosa with reactive gastropathy and focal intestinal metaplasia. Intestinal metaplasia present in one of two biopsy fragments. Negative for Helicobacter organisms by immunohistochemistry. Negative for dysplasia or malignancy. . B. GASTRIC FUNDUS, BIOPSY: Gastric body mucosa with no diagnostic abnormality. No evidence of Helicobacter organisms on H/E stain. Negative for intestinal metaplasia. Negative for dysplasia or malignancy. . C. TRANSVERSE COLON, POLYP: Tubular adenoma. . D. RECTUM, POLYP: Hyperplastic polyp. [facility] 01/21/2024 1801 Local . 01 Diagnosis provided by: . Jesus Bowling MD, PhD, Pathologist NPI- [id number] . 01 Electronically signed: . Jes Shook MD, Pathologist NPI- [id number] . 01 Gross description: . Part A: BX OF ANTRUM: Received in formalin are 2 fragment(s) of calles, soft tissue measuring 0.2 x 0.2 x 0.2 cm to 0.5 x 0.4 x 0.3 cm submitted entirely in 1 cassette(s) Part B: FUNDUS: Received in formalin are 2 fragment(s) of calles, soft tissue measuring 0.2 x 0.2 x 0.2 cm to 0.3 x 0.2 x 0.2 cm submitted entirely in 1 cassette(s) Part C: TRANSVERSE POLYP: Received in formalin are 2 fragment(s) of calles, soft tissue measuring 0.7 x 0.3 x 0.3 cm to 0.8 x 0.7 x 0.6 cm submitted entirely in 1 cassette(s) Part D: RECTAL POLYP: Received in formalin is 1 fragment(s) of calles, soft tissue measuring 0.3 x 0.3 x 0.3 cm submitted entirely in 1 cassette(s) /SHAY 01/17/2024 0120 Local . 01 Microscopic: . A. An immunohistochemical stain was performed to evaluate for Helicobacter organisms and is negative. The control stain showed appropriate reactivity. . * This test was developed and its performance characteristics determined by [employer]. It has not been cleared or approved by the U.[place]. Food and Drug Administration. The FDA has determined that such clearance or approval is not necessary. This test is used for clinical purposes. It should not be regarded as investigational or for research. . 01 Pathologist provided ICD-10: K31.A0, D12.3, K62.1 . 01 CPT . 489908, 575528, 549661, 385425, [id number] Specimen Comment: A courtesy copy of this report has been sent to [phone] Performed at: 01 [facility] [address] [place] [address], [place], [place] [id number] MD Melchor Roa MD Phone: [phone]
[2024-01-15 07:34] VITALS: BP 165/71; PULSE 79; RESP 16; TEMP 36.3; O2SAT 95
--- NOTE | 2024-01-15 07:41 | P.HP_ITS ---
History of Present Illness History of Present Illness Date Patient Seen: 01/15/24 Time Patient Seen: 07:41 Chief complaint: EGD & Colonoscopy Narrative: Irma is a 73 year old woman with dysphagia and right sided abdominal pain who is also overdue for a screening colonoscopy. See note from November for details. Her abdominal pain is worse today. She is malnourished with a BMI of 13. [facility] Medical History Diarrhea due to drug Hyperlipidemia, mixed Vitamin D deficiency Chronic right shoulder pain Acute pain of both shoulders Upper extremity somatic dysfunction Insomnia Acute neck pain CUONG III (cervical intraepithelial neoplasia III) Piriformis syndrome of right side Chronic obstructive pulmonary disease Family history of alpha 1 antitrypsin deficiency Chronic pain of right knee Mold exposure Chronic neck and back pain Thyroid nodule PFO (patent foramen ovale) Underweight Osteoporosis Incidental lung nodule, greater than or equal to 8mm Fibroadenoma Supraventricular bigeminy (08/22/17) Tobacco use disorder, continuous (01/12/15) Poor dentition (09/27/14) Fibromyalgia (07/27/03) Surgical History H/O LEEP (~2009) History of exploratory laparotomy (2007) Family History Father Hypertension Type 2 diabetes mellitus Postoperative pneumonia Mother Hypertension Dementia Social History Smoking Status: Current every day smoker alcohol intake: never Meds Home Medications and Allergies Home Medications Medication Instructions Recorded Confirmed Type Peak Flow Meter ea IH PRN PRN Dyspnea 03/29/18 12/11/23 History cholecalciferol (vitamin D3) 1,250 50,000 unit PO QWEEK #8 caps 02/24/20 12/11/23 Rx mcg (50,000 unit) capsule [facility] Wort PO 06/09/21 12/11/23 History Ventolin HFA 90 mcg/actuation 1 puff inhalation Q4-6H PRN 07/17/22 01/15/24 Rx aerosol inhaler (albuterol sulfate) shortness of breath or wheezing #18 grams bupropion HCl 75 mg tablet See Rx Instructions PO .COMPLEX 03/06/23 12/11/23 Rx #60 tabs nicotine 10 mg inhalation cartridge 1 inh inhalation Q2-4H PRN 04/09/23 12/11/23 Rx nicotine cravings #168 ea amlodipine 2.5 mg tablet 2.5 mg PO BID #180 tabs 07/01/23 01/15/24 Rx lorazepam 0.5 mg tablet See Rx Instructions .Route 12/02/23 12/11/23 Rx .COMPLEX #60 tabs tiotropium bromide 2.5 2 puff inhalation DAILY #4 grams 12/11/23 Rx mcg/actuation mist for inhalation (Spiriva Respimat) peg 3350-electrolytes 236 240 ml PO Q10M #4,000 mL 12/12/23 Rx gram-22.74 gram-6.74 gram-5.86 gram solution (Golytely) Allergies Allergy/AdvReac Type Severity Reaction Status Date / Time Pzwvesv-CNY-WpS Reductase AdvReac Mild muscle Verified 01/15/24 07:32 Inhibitor soreness [Opipjya-Epb-Xjq Reductase Inhibitor] alendronate AdvReac Intermediate acid reflux Uncoded 01/15/24 07:32 sertraline AdvReac Intermediate visual Uncoded 01/15/24 07:32 changes Exam Vital Signs (past 8 hours): - 01/15/24 07:34 Temperature 97.4 F L Pulse Rate 79 Respiratory Rate 16 Blood Pressure 165/71 H Pulse Oximetry 95 Oxygen Delivery Method Room Air Oxygen Delivery Method Room Air Const General: No acute distress Resp Effort & Inspection: normal respiratory effort Assessment & Plan Assessment and plan (1) Dysphagia: Qualifiers: Dysphagia type: esophageal phase Qualified Code(s): R13.19 - Other dysphagia Status: Acute (2) Obstructive defecation: Status: Acute Plan We will proceed with an EGD and colonoscopy. She is malnourished with a BMI of 13
[2024-01-15] MEDS: LACTATED RINGERS 1,000 ML 42 ML IV (07:46)
--- NOTE | 2024-01-15 08:57 | PM.OP.EC ---
Operative Date/Time/Diagnoses Date of procedure: 01/15/24 Time of procedure: 08:57 Pre-op diagnosis: Dysphagia, abdominal pain and colon cancer screening Post-op diagnosis: same Procedure & Clinicians Study performed: EGD and colonoscopy Same procedure as scheduled: Yes Surgeon: Ramses Delong Procedure Notes Procedure in detail: Surgeon: Ramses Delong MD Anesthesia: Beckie Rangel HIDE DROPPER Procedure in detail: A timeout was performed. A bite blocked was placed and monitors were attached to the patient. The patient was positioned in the left lateral decubitus position. Sedation was administered. Once the patient was sedated the endoscope was inserted through the bite block and passed through the esophagus and stomach and into the duodenum. No abnormalities were seen in the duodenal. We then withdrew the scope into the stomach. There was mild to moderate antritis and biopsies were taken from the antrum with cold forceps. The endoscope was retroflexed and some gastritis was seen at fundus and random biopsies were taken with cold forceps. The endoscope was straightned and withdrawn into the esophagus. No other abnormalities were seen. EGD findings: Mild to moderate antritis and mild fundic gastritis Next we repositioned the patient for a colonoscopy. A digital rectal exam was performed and was normal. The colonoscope was inserted and advanced to the cecum. The appendiceal orifice was identified and photographed. The scope was slowly withdrawn over greater than 6 minutes. There was a 1 cm polyp in the transverse colon removed with a cold snare. Hemostasis was observed. There was a 5 mm polyp also in the transverse colon removed with a cold snare and sent together with the first transverse polyp. There was some sigmoid diverticulosis. There was a 5 mm polyp in the rectum removed with a cold snare. The scope was retroflexed in the rectum and no other abnormalities were seen. Colonoscopy findings: 1 cm and 5 mm polyps in the transverse colon and 5 mm polyp in the rectum, sigmoid diverticulosis Total procedural EBL: 5 mL Scope withdrawal time: 15 minutes Sedation minutes: 31 minutes Post-procedure Disposition: PACU
[2024-01-15 08:59] VITALS: BP 136/52; PULSE 59; RESP 15; TEMP 36.4; O2SAT 99
[2024-01-15 09:04] VITALS: BP 149/54; PULSE 59; RESP 21; O2SAT 99
[2024-01-15 09:09] VITALS: BP 149/66; PULSE 54; RESP 18; O2SAT 100
[2024-01-15 09:17] VITALS: BP 162/54; PULSE 53; RESP 25; TEMP 36.4; O2SAT 99
== END 2024-01-15 09:34 | disposition home or self-care (01) ==
PROVIDERS: Family Provider Family Medicine; PCP Family Medicine; Referring Provider Surgery; Visit Provider Surgery
PROC: 0DJ08ZZ Inspection of Upper Intestinal Tract, Via Natural or Artificial Opening Endoscopic (ICD-10-PCS; CPT 43235; principal; 2024-01-15 08:15)
PROC: 0DJD8ZZ Inspection of Lower Intestinal Tract, Via Natural or Artificial Opening Endoscopic (ICD-10-PCS; CPT 45378; 2024-01-15 08:15)
DX: R10.31 Right lower quadrant pain (principal); R13.10 Dysphagia, unspecified; K57.30 Diverticulosis of large intestine without perforation or abscess without bleeding; K29.70 Gastritis, unspecified, without bleeding; K31.89 Other diseases of stomach and duodenum; K31.A11 Gastric intestinal metaplasia without dysplasia, involving the antrum; D12.3 Benign neoplasm of transverse colon; K62.1 Rectal polyp
CPT/HCPCS: 45385; 43239; J2704

== ENCOUNTER → 2024-01-23 09:55 | Outpatient (CLI) | payer OTHER, MEDICAID, SELFPAY ==
--- NOTE | 2024-01-23 09:58 | DI.CT.S_ITS ---
PROCEDURE: CT ABDOMEN PELVIS W CON INDICATIONS: Abdominal pain TECHNIQUE: After the administration of intravenous contrast, axial sections acquired from the lung bases to the pubic symphysis. Coronal and sagittal reformats were performed. For radiation dose reduction, the following was used: automated exposure control, adjustment of mA and/or kV according to patient size. COMPARISON: [facility], [place], ABDOMEN/PELVIS WITH CONTRAST, 01/12/2008, 10:01. FINDINGS: Image quality: Diagnostic. Lower Chest: 3 mm right lower lobe nodule is stable dating back to 2007 and likely benign in etiology. ABDOMEN: Liver: 6 mm enhancing lesion within left hepatic lobe (01/11), may represent a flash filling hemangioma. Mild enhancement along the periphery of the liver is noted a couple locations, may be perfusion etiology. Gallbladder: No radiopaque gallstones or wall thickening. Biliary ducts: No biliary dilation. Pancreas: No ductal dilation. Spleen: Size is within normal limits. Adrenal Glands: No adrenal nodules. Kidneys and Ureters: No hydronephrosis. No solid mass. No complex renal cystic lesion which requires follow up. Stomach and Bowel: Normal colonic caliber, without significant wall thickening. Moderate burden of stool throughout the colon. Appendix is within normal limits. Peritoneum: No abnormal intraperitoneal fluid. No free air. Ventral Wall: No significant ventral hernia. Abdominal Nodes: No retroperitoneal or mesenteric adenopathy by size criteria. Vessels: Aorta and inferior vena cava are normal in size. Extensive atherosclerotic vascular calcifications. Areas of high-grade stenosis within bilateral iliac arteries. PELVIS: Pelvic Organs: Unremarkable. Bladder: No bladder wall thickening, accounting for underdistention. Pelvic Nodes: No enlarged lymph nodes. Miscellaneous: No inguinal hernias are seen. Bones: No aggressive osseous abnormality. Diffusely decreased osseous mineralization. IMPRESSION: 1. No acute findings within the abdomen or pelvis to explain patient's symptoms. 2. Normal appendix. No inguinal hernias. 3. Small 6 mm enhancing lesion in the left hepatic lobe, may represent a flash filling hemangioma. Mild enhancement along the periphery of the liver is noted in a couple locations, may be perfusion on etiology. 4. Extensive atherosclerotic vascular calcifications with focal areas of high-grade stenosis within the bilateral iliac arteries. 5. Moderate burden of stool throughout the colon, correlate for constipation. Dictated by: Venancio Cole M.D. on 01/23/2024 at 13:08 Approved by: Venancio Cole M.D. on 01/23/2024 at 13:20
[2024-01-23 10:24] LABS: Estimated Glomerular Filt Rate > 60 mL/min (>60)
== END ==
LOC: CT 09:57
PROVIDERS: Radiology Diagnostic Radiology; Family Provider Family Medicine; PCP Family Medicine; Referring Provider Surgery; Visit Provider Surgery
DX: I70.0 Atherosclerosis of aorta (principal); I70.203 Unspecified atherosclerosis of native arteries of extremities, bilateral legs; R10.30 Lower abdominal pain, unspecified; M54.2 Cervicalgia; K76.9 Liver disease, unspecified
CPT/HCPCS: 36415; 74177; 82565; Q9967

== ENCOUNTER 2024-02-13 13:45 | Outpatient (RCR) | payer OTHER, MEDICAID, SELFPAY ==
--- NOTE | 2023-06-13 09:27 | PT.OIE ---
Current Diagnoses Muscle spasm of back (06/11/23) Pelvic and perineal pain (06/11/23) Other reduced mobility (06/11/23) Past Medical History (Last Updated 04/09/23 @ 15:00 by Rikki Foley DO) Acute neck pain Acute pain of both shoulders Chronic neck and back pain Chronic obstructive pulmonary disease Chronic pain of right knee CUONG III (cervical intraepithelial neoplasia III) Family history of alpha 1 antitrypsin deficiency Fibroadenoma Fibromyalgia (07/27/03) Incidental lung nodule, greater than or equal to 8mm Insomnia Mold exposure Osteoporosis PFO (patent foramen ovale) Piriformis syndrome of right side Poor dentition (09/27/14) Supraventricular bigeminy (08/22/17) Thyroid nodule Tobacco use disorder, continuous (01/12/15) Underweight Upper extremity somatic dysfunction Past Surgical History (Last Updated 07/16/21 @ 10:47 by Caroline Watkins DO) H/O LEEP (~2009) History of exploratory laparotomy (2007) Visit Care Team Role Provider Type Rikki Foley DO Attending Provider Physician Family Provider Primary Care Provider Referring Provider Specialty: Family Practice Address: [address] [place] [address], [facility] Email: Physical Therapy Initial Evaluation PT-OP-A Visit Information Start: 06/11/23 11:36 Freq: Status: Active Protocol: Document 06/11/23 11:30 [facility] (Rec: 06/11/23 15:50 [facility] [id number]) Out-Patient Physical Therapy Visit Information Visit Information Visit Type Initial Evaluation Visit Start Time 11:30 Visit Stop Time 12:15 Total Visit Minutes 45 Visit Number 1 PT-OP-B Current Condition Start: 06/11/23 11:36 Freq: Status: Active Protocol: Document 06/11/23 11:38 [facility] (Rec: 06/11/23 12:12 [facility] [id number]) Current Condition History of Current Condition History of Current Condition pt report ongoing pelvic pain and pain that, she feels a pulling and twisting sensation up to her right shoulder and upper right neck. Pain also extens into her low back region into the anterior pelvis. She describes a pulling and twisting pain PT-OP-C Subjective Start: 06/11/23 11:36 Freq: Status: Active Protocol: Document 06/11/23 11:30 [facility] (Rec: 06/13/23 09:22 [facility] [id number]) Patient Questionnaires Lower Extremity Functional Scale LEFS Score 27 LEFS Impairment 60 to 79% Impaired (Score 17- 31) OP-PT Pain Assessment Location right groin Intensity 6 Scale Used Numeric (0 - 10) PT-OP-F Manual Assessment Start: 06/11/23 11:36 Freq: Status: Active Protocol: Document 06/11/23 11:30 [facility] (Rec: 06/13/23 09:17 [facility] [id number]) Manual Assessments Soft Tissue Assessment Soft Tissue Mobility Assessment parapspinal guarding and increased tone throughout the thoracic and cervical spine adductor guarding/contracture R>L iliopsoas tightness R>L suboccipital muscle guarding and tightness Joint Mobility Assessment Joint Mobility Assessment thoracic kyphosis with rounded shoulders and anterior head position, multiple areas of hytomobility throughout the thoracic spine PT-OP-J Posture/Palpation/Skin Start: 06/11/23 11:36 Freq: Status: Active Protocol: Document 06/11/23 11:30 [facility] (Rec: 06/13/23 09:20 [facility] [id number]) Posture Evaluation Comments Posture Comments anterior head, rounded shoulders, thoracic kyphosis, anterior oblique tightness and decreased diaphragmatic excursion, pt breaths with upper neck Palpation Assessment Location iliopsoas R Palpation Findings Soft Tissue Tightness,Spasm, Muscle Guarding,Tenderness suboccitipals Palpation Findings Soft Tissue Tightness,Spasm, Muscle Guarding,Tenderness right adducotrs Palpation Findings Soft Tissue Tightness,Muscle Guarding,Tenderness Palpation Details tenderness along the pubic bone attachments of the adductors on the right side PT-OP-K Range of Motion Start: 06/11/23 11:36 Freq: Status: Active Protocol: Document 06/11/23 11:30 [facility] (Rec: 06/13/23 09:15 [facility] [id number]) Hip Goniometric Range of Motion Hip ROM Limitations Hip ROM Limitations Soft Tissue Tightness Comments iliopsoas tightness R greater than left with + dylan test on the right PT-OP-Q Treatments Start: 06/11/23 11:36 Freq: Status: Active Protocol: Document 06/11/23 15:51 [facility] (Rec: 06/11/23 15:52 [facility] [id number]) Therapeutic Exercises Supine Exercises iliopsoas stretch in supine in dylan test position Reps/Minutes hold 1-2 minutes supine ball squeeze Reps/Minutes x 10 reps Manual Therapy Treatment Manual Techniques suboccipital release Comments pt very tight and guarded upper cervical spine manual iliopsoas stretch Type Right side Body Position Hooklying Reps/Duration 1 rep holding x 1 min MET for right anterior rotated innominant Body Location right anterior innominant Body Position Hooklying Reps/Duration x 5 reps PT-OP-T Assessment and Plan Start: 06/11/23 11:36 Freq: Status: Active Protocol: Document 06/11/23 11:30 [facility] (Rec: 06/13/23 09:13 [facility] [id number]) Physical Therapy Assessment Rehab Potential Rehabilitation Potential Good Evaluation Complexity Number of Personal Factors/Comorbidities 1-2 Number of Body Systems Impaired 1-2 Clinical Presentation at Evaluation Stable Impairments Impairments Activity Tolerance,Functional Activities,Functional Mobility ,Pain,Posture,Soft Tissue Mobility,Strength,Tone Goals 3 Impairment guarding, tightness, pain of the adductor attachments to the pubic ramus, pain over the pubic tubercles bilaterally Watch Leader Goal (LTG) pt presents with SI alignnment that that is not being compressed or shifted due to tight muscles and adducors are no longer as tight and short. Pt has negative dylan test on the right LTG Duration 12 weeks 2 Impairment upper neck breather with poor excursion of the diaphragm, pt has difficult expanding her belly with breathing and uses her upper neck muscles Short Term Goal (STG) pt is educated on diaphragmatic breathing STG Duration 4 weeks pain Impairment pelvic pain rated 6/10 worse with standing activities Group Home Goal (LTG) Jacqueline Tse has overall decreased c/o pain and a HEP that she can continue with at home to manage her symptoms LTG Duration 12 weeks Assessment Summary Assessment 72 year old female who returns to PT today with continued complaints of chronic pelvic and groin pain. She reports tightness and discomfort throught her abdomen, hips and back that extends up to her neck. She describes her pain as being more on the right side that seems to pull from her adductors up through the right side of her abdomen to the right side of her neck. She has a long standing tobacco usage disorder, COPD and hypertension. Irma does report she felt PT was helping last time she was here but her relief is only temporary. She is under a great deal of stress and she realizes this can increase her muscle tightness and pain. With exam today she is guarded and tight in the adductors and iliopsoas R>L. She presensted with right leg longer in supine and a anteriorly rotated innominant. I worked with MET to help to align her pelvis today and she did feel some relief with treatment. I also begin working on suboccipital musculature. We talked about diaphragmatic breathing as she tends to take shallow breaths using her neck muscles which is most likey a compensation that is exaccerbated with smoking. Jacqueline Tse was given stretches to begin working on for home and she was strongly encouraged to start a walking program. PT plan of care will include postural modifications, manual therapy techniques, ther ex and home stretching program Physical Therapy Plan Frequency and Duration Frequency of Treatment 1x/Week Duration of treatment (weeks) 12 Plan of Care Start Date 06/11/23 Plan of Care End Date 09/03/23 Therapeutic Interventions Therapeutic Interventions Home Exercise Program,Manual Therapy,Patient/Caregiver Education,Self-Care/Home Management,Soft Tissue Mobilization,Therapeutic Exercises Next Visit Focus/Plan Next Note Type Treatment Note Next Visit Plan review stretches for the hips, begin working on stretches to open up the anterior chest next visit, manual therapy techniques for pelvic alignment and reduced muscle tone.
--- NOTE | 2023-06-13 09:27 | PT.OPPOC ---
Physical, Occupational & Speech Therapy At [facility] Current Diagnoses Muscle spasm of back (06/11/23) Pelvic and perineal pain (06/11/23) Other reduced mobility (06/11/23) Visit Care Team Role Provider Type Rikki Foley DO Attending Provider Physician Family Provider Primary Care Provider Referring Provider Specialty: Family Practice Address: [address] [place] [address], [facility] Email: Plan Of Care PT-OP-T Assessment and Plan Start: 06/11/23 11:36 Freq: Status: Active Protocol: Document 06/11/23 11:30 [facility] (Rec: 06/13/23 09:13 [facility] [id number]) Physical Therapy Assessment Rehab Potential Rehabilitation Potential Good Evaluation Complexity Number of Personal Factors/Comorbidities 1-2 Number of Body Systems Impaired 1-2 Clinical Presentation at Evaluation Stable Impairments Impairments Activity Tolerance,Functional Activities,Functional Mobility ,Pain,Posture,Soft Tissue Mobility,Strength,Tone Goals 3 Impairment guarding, tightness, pain of the adductor attachments to the pubic ramus, pain over the pubic tubercles bilaterally Public Speaking Teacher Goal (LTG) pt presents with SI alignnment that that is not being compressed or shifted due to tight muscles and adducors are no longer as tight and short. Pt has negative dylan test on the right LTG Duration 12 weeks 2 Impairment upper neck breather with poor excursion of the diaphragm, pt has difficult expanding her belly with breathing and uses her upper neck muscles Short Term Goal (STG) pt is educated on diaphragmatic breathing STG Duration 4 weeks pain Impairment pelvic pain rated 6/10 worse with standing activities Skilled Nursing Goal (LTG) Jacqueline Tse has overall decreased c/o pain and a HEP that she can continue with at home to manage her symptoms LTG Duration 12 weeks Assessment Summary Assessment 72 year old female who returns to PT today with continued complaints of chronic pelvic and groin pain. She reports tightness and discomfort throught her abdomen, hips and back that extends up to her neck. She describes her pain as being more on the right side that seems to pull from her adductors up through the right side of her abdomen to the right side of her neck. She has a long standing tobacco usage disorder, COPD and hypertension. Irma does report she felt PT was helping last time she was here but her relief is only temporary. She is under a great deal of stress and she realizes this can increase her muscle tightness and pain. With exam today she is guarded and tight in the adductors and iliopsoas R>L. She presented with right leg longer in supine and a anteriorly rotated innominant. I worked with MET to help to align her pelvis today and she did feel some relief with treatment. I also begin working on suboccipital musculature. We talked about diaphragmatic breathing as she tends to take shallow breaths using her neck muscles which is most likey a compensation that is exaccerbated with smoking. Jacqueline Tse was given stretches to begin working on for home and she was strongly encouraged to start a walking program. PT plan of care will include postural modifications, manual therapy techniques, ther ex and home stretching program Physical Therapy Plan Frequency and Duration Frequency of Treatment 1x/Week Duration of treatment (weeks) 12 Plan of Care Start Date 06/11/23 Plan of Care End Date 09/03/23 Therapeutic Interventions Therapeutic Interventions Home Exercise Program,Manual Therapy,Patient/Caregiver Education,Self-Care/Home Management,Soft Tissue Mobilization,Therapeutic Exercises Next Visit Focus/Plan Next Note Type Treatment Note Next Visit Plan review stretches for the hips, begin working on stretches to open up the anterior chest next visit, manual therapy techniques for pelvic alignment and reduced muscle tone. Plan of Care Dates Plan of Care Start Date 06/11/23 Plan of Care End Date 09/03/23 Electronically Signed by: Crissy Lees, PT 06/13/23 0927 If you are in agreement with this Plan of Care, please return a signed and dated copy. I have reviewed this Plan of Care and certify that the skilled therapy services above are required to meet the patient?s needs. Physician Signature Date Printed Name and Credentials Clinical Instructor Signature Printed Name and Credentials
--- NOTE | 2023-06-18 13:46 | PT.OTN ---
Current Diagnoses Muscle spasm of back (06/18/23) Pelvic and perineal pain (06/18/23) Other reduced mobility (06/18/23) Physical Therapy Treatment Note PT-OP-A Visit Information Start: 06/11/23 11:36 Freq: Status: Active Protocol: Document 06/18/23 13:37 [facility] (Rec: 06/18/23 13:46 [facility] [id number]) Out-Patient Physical Therapy Visit Information Visit Information Visit Type Treatment Note Visit Start Time 11:15 Visit Stop Time 12:00 Total Visit Minutes 45 Visit Number 2 PT-OP-B Current Condition Start: 06/11/23 11:36 Freq: Status: Active Protocol: Document 06/11/23 11:38 [facility] (Rec: 06/11/23 12:12 [facility] [id number]) Current Condition History of Current Condition History of Current Condition pt report ongoing pelvic pain and pain that, she feels a pulling and twisting sensation up to her right shoulder and upper right neck. Pain also extens into her low back region into the anterior pelvis. She describes a pulling and twisting pain PT-OP-C Subjective Start: 06/11/23 11:36 Freq: Status: Active Protocol: Document 06/18/23 13:37 [facility] (Rec: 06/18/23 13:46 [facility] [id number]) OP-PT Subjective Patient Comments Patient Comments Irma reports she responded really well to treatment last visit. She feels this week has been very stressfull for her though and that she holds her stress in her pelvis PT-OP-F Manual Assessment Start: 06/11/23 11:36 Freq: Status: Active Protocol: Document 06/11/23 11:30 [facility] (Rec: 06/13/23 09:17 [facility] [id number]) Manual Assessments Soft Tissue Assessment Soft Tissue Mobility Assessment parapspinal guarding and increased tone throughout the thoracic and cervical spine adductor guarding/contracture R>L iliopsoas tightness R>L suboccipital muscle guarding and tightness Joint Mobility Assessment Joint Mobility Assessment thoracic kyphosis with rounded shoulders and anterior head position, multiple areas of hytomobility throughout the thoracic spine PT-OP-J Posture/Palpation/Skin Start: 06/11/23 11:36 Freq: Status: Active Protocol: Document 06/11/23 11:30 [facility] (Rec: 06/13/23 09:20 [facility] [id number]) Posture Evaluation Comments Posture Comments anterior head, rounded shoulders, thoracic kyphosis, anterior oblique tightness and decreased diaphragmatic excursion, pt breaths with upper neck Palpation Assessment Location iliopsoas R Palpation Findings Soft Tissue Tightness,Spasm, Muscle Guarding,Tenderness suboccitipals Palpation Findings Soft Tissue Tightness,Spasm, Muscle Guarding,Tenderness right adducotrs Palpation Findings Soft Tissue Tightness,Muscle Guarding,Tenderness Palpation Details tenderness along the pubic bone attachments of the adductors on the right side PT-OP-K Range of Motion Start: 06/11/23 11:36 Freq: Status: Active Protocol: Document 06/11/23 11:30 [facility] (Rec: 06/13/23 09:15 [facility] [id number]) Hip Goniometric Range of Motion Hip ROM Limitations Hip ROM Limitations Soft Tissue Tightness Comments iliopsoas tightness R greater than left with + dylan test on the right PT-OP-Q Treatments Start: 06/11/23 11:36 Freq: Status: Active Protocol: Document 06/18/23 13:37 [facility] (Rec: 06/18/23 13:46 [facility] [id number]) Therapeutic Exercises Supine Exercises single knee to chest stretch Reps/Minutes hold 30 sec each side iliopsoas stretch in supine in dylan test position Reps/Minutes hold 1-2 minutes supine ball squeeze Reps/Minutes x 10 reps Manual Therapy Treatment Soft Tissue Mobilization manual quad MFR right side Body Location Right quad MFR Mobilization Type Myofascial Release Comments right sided quad guarding and tightness Manual Techniques suboccipital release Comments pt very tight and guarded upper cervical spine manual iliopsoas stretch Type Right side Body Position Hooklying Reps/Duration 1 rep holding x 1 min MET for right anterior rotated innominant Body Location right anterior innominant Body Position Hooklying Reps/Duration x 5 reps PT-OP-T Assessment and Plan Start: 06/11/23 11:36 Freq: Status: Active Protocol: Document 06/18/23 13:37 [facility] (Rec: 06/18/23 13:46 [facility] [id number]) Physical Therapy Assessment Assessment Summary Assessment Jacqueline blanchard did look better with pelvic alignment today , right leg was still a little longer but not as much as last week. Good tolerance for manual therapy techniques. Physical Therapy Plan Frequency and Duration Frequency of Treatment 1x/Week Duration of treatment (weeks) 12 Plan of Care Start Date 06/11/23 Plan of Care End Date 09/03/23 Therapeutic Interventions Therapeutic Interventions Home Exercise Program,Manual Therapy,Patient/Caregiver Education,Self-Care/Home Management,Soft Tissue Mobilization,Therapeutic Exercises Next Visit Focus/Plan Next Note Type Treatment Note Next Visit Plan review stretches for the hips, manual therapy techniques for pelvic alignment and reduced muscle tone.
--- NOTE | 2023-06-25 16:03 | PT.OTN ---
Current Diagnoses Muscle spasm of back (06/25/23) Pelvic and perineal pain (06/25/23) Other reduced mobility (06/25/23) Physical Therapy Treatment Note PT-OP-A Visit Information Start: 06/11/23 11:36 Freq: Status: Active Protocol: Document 06/25/23 11:17 [facility] (Rec: 06/25/23 11:18 [facility] [id number]) Out-Patient Physical Therapy Visit Information Visit Information Visit Type Treatment Note Visit Start Time 11:15 Visit Stop Time 12:00 Total Visit Minutes 45 Visit Number 3 PT-OP-B Current Condition Start: 06/11/23 11:36 Freq: Status: Active Protocol: Document 06/11/23 11:38 [facility] (Rec: 06/11/23 12:12 [facility] [id number]) Current Condition History of Current Condition History of Current Condition pt report ongoing pelvic pain and pain that, she feels a pulling and twisting sensation up to her right shoulder and upper right neck. Pain also extens into her low back region into the anterior pelvis. She describes a pulling and twisting pain PT-OP-C Subjective Start: 06/11/23 11:36 Freq: Status: Active Protocol: Document 06/25/23 11:17 [facility] (Rec: 06/25/23 11:18 [facility] [id number]) OP-PT Subjective Patient Comments Patient Comments Irma notes all the work we did last session was unraveled when she got home as her neighbor was moving in and was loud until 1 in the am. PT-OP-F Manual Assessment Start: 06/11/23 11:36 Freq: Status: Active Protocol: Document 06/11/23 11:30 [facility] (Rec: 06/13/23 09:17 [facility] [id number]) Manual Assessments Soft Tissue Assessment Soft Tissue Mobility Assessment parapspinal guarding and increased tone throughout the thoracic and cervical spine adductor guarding/contracture R>L iliopsoas tightness R>L suboccipital muscle guarding and tightness Joint Mobility Assessment Joint Mobility Assessment thoracic kyphosis with rounded shoulders and anterior head position, multiple areas of hytomobility throughout the thoracic spine PT-OP-J Posture/Palpation/Skin Start: 06/11/23 11:36 Freq: Status: Active Protocol: Document 06/11/23 11:30 [facility] (Rec: 06/13/23 09:20 [facility] [id number]) Posture Evaluation Comments Posture Comments anterior head, rounded shoulders, thoracic kyphosis, anterior oblique tightness and decreased diaphragmatic excursion, pt breaths with upper neck Palpation Assessment Location iliopsoas R Palpation Findings Soft Tissue Tightness,Spasm, Muscle Guarding,Tenderness suboccitipals Palpation Findings Soft Tissue Tightness,Spasm, Muscle Guarding,Tenderness right adducotrs Palpation Findings Soft Tissue Tightness,Muscle Guarding,Tenderness Palpation Details tenderness along the pubic bone attachments of the adductors on the right side PT-OP-K Range of Motion Start: 06/11/23 11:36 Freq: Status: Active Protocol: Document 06/11/23 11:30 [facility] (Rec: 06/13/23 09:15 [facility] [id number]) Hip Goniometric Range of Motion Hip ROM Limitations Hip ROM Limitations Soft Tissue Tightness Comments iliopsoas tightness R greater than left with + dylan test on the right PT-OP-Q Treatments Start: 06/11/23 11:36 Freq: Status: Active Protocol: Document 06/25/23 11:15 [facility] (Rec: 06/25/23 16:03 [facility] [id number]) Therapeutic Exercises Supine Exercises diaphragmatic breathing Reps/Minutes x 10 reps supine pec stretch Reps/Minutes hold 1 min Comments arms in 90 degrees ER single knee to chest stretch Reps/Minutes hold 30 sec each side iliopsoas stretch in supine in dylan test position Reps/Minutes hold 1-2 minutes Manual Therapy Treatment Soft Tissue Mobilization manual iliospoas release Comments right side only in dylan test position manual quad MFR right side Body Location Right quad MFR Mobilization Type Myofascial Release Comments right sided quad guarding and tightness Manual Techniques suboccipital release Comments pt very tight and guarded upper cervical spine manual iliopsoas stretch Type Right side Body Position Hooklying Reps/Duration 1 rep holding x 1 min MET for right anterior rotated innominant Body Location right anterior innominant Body Position Hooklying Reps/Duration x 5 reps PT-OP-T Assessment and Plan Start: 06/11/23 11:36 Freq: Status: Active Protocol: Document 06/25/23 11:15 [facility] (Rec: 06/25/23 16:03 [facility] [id number]) Physical Therapy Assessment Assessment Summary Assessment Irma tolerated treatment will today and is better tolerating her stretches. She tends to carry her stress in her body and her housing situation right now is really affecting her stress level. Physical Therapy Plan Frequency and Duration Frequency of Treatment 1x/Week Duration of treatment (weeks) 12 Plan of Care Start Date 06/11/23 Plan of Care End Date 09/03/23 Therapeutic Interventions Therapeutic Interventions Home Exercise Program,Manual Therapy,Patient/Caregiver Education,Self-Care/Home Management,Soft Tissue Mobilization,Therapeutic Exercises Next Visit Focus/Plan Next Note Type Treatment Note Next Visit Plan review stretches for the hips, manual therapy techniques for pelvic alignment and reduced muscle tone.
--- NOTE | 2023-08-01 12:44 | PT.OTN ---
Current Diagnoses Muscle spasm of back (08/01/23) Pelvic and perineal pain (08/01/23) Other reduced mobility (08/01/23) Physical Therapy Treatment Note PT-OP-A Visit Information Start: 06/11/23 11:36 Freq: Status: Active Protocol: Document 08/01/23 11:13 [facility] (Rec: 08/01/23 11:59 [facility] [id number]) Out-Patient Physical Therapy Visit Information Visit Information Visit Type Treatment Note Visit Start Time 11:15 Visit Stop Time 12:00 Total Visit Minutes 45 Visit Number 4 PT-OP-B Current Condition Start: 06/11/23 11:36 Freq: Status: Active Protocol: Document 06/11/23 11:38 [facility] (Rec: 06/11/23 12:12 [facility] [id number]) Current Condition History of Current Condition History of Current Condition pt report ongoing pelvic pain and pain that, she feels a pulling and twisting sensation up to her right shoulder and upper right neck. Pain also extens into her low back region into the anterior pelvis. She describes a pulling and twisting pain PT-OP-C Subjective Start: 06/11/23 11:36 Freq: Status: Active Protocol: Document 08/01/23 11:13 [facility] (Rec: 08/01/23 12:41 [facility] [id number]) OP-PT Subjective Patient Comments Patient Comments irma states she has been experiencing pulling across the anterior hips and into her pelvis especially with the breath work she has been working on. PT-OP-F Manual Assessment Start: 06/11/23 11:36 Freq: Status: Active Protocol: Document 06/11/23 11:30 [facility] (Rec: 06/13/23 09:17 [facility] [id number]) Manual Assessments Soft Tissue Assessment Soft Tissue Mobility Assessment parapspinal guarding and increased tone throughout the thoracic and cervical spine adductor guarding/contracture R>L iliopsoas tightness R>L suboccipital muscle guarding and tightness Joint Mobility Assessment Joint Mobility Assessment thoracic kyphosis with rounded shoulders and anterior head position, multiple areas of hytomobility throughout the thoracic spine PT-OP-J Posture/Palpation/Skin Start: 06/11/23 11:36 Freq: Status: Active Protocol: Document 06/11/23 11:30 [facility] (Rec: 06/13/23 09:20 [facility] [id number]) Posture Evaluation Comments Posture Comments anterior head, rounded shoulders, thoracic kyphosis, anterior oblique tightness and decreased diaphragmatic excursion, pt breaths with upper neck Palpation Assessment Location iliopsoas R Palpation Findings Soft Tissue Tightness,Spasm, Muscle Guarding,Tenderness suboccitipals Palpation Findings Soft Tissue Tightness,Spasm, Muscle Guarding,Tenderness right adducotrs Palpation Findings Soft Tissue Tightness,Muscle Guarding,Tenderness Palpation Details tenderness along the pubic bone attachments of the adductors on the right side PT-OP-K Range of Motion Start: 06/11/23 11:36 Freq: Status: Active Protocol: Document 06/11/23 11:30 [facility] (Rec: 06/13/23 09:15 [facility] [id number]) Hip Goniometric Range of Motion Hip ROM Limitations Hip ROM Limitations Soft Tissue Tightness Comments iliopsoas tightness R greater than left with + dylan test on the right PT-OP-Q Treatments Start: 06/11/23 11:36 Freq: Status: Active Protocol: Document 08/01/23 11:13 [facility] (Rec: 08/01/23 11:59 [facility] [id number]) Therapeutic Exercises Supine Exercises pelvic tilts Reps/Minutes x 10 reps diaphragmatic breathing Reps/Minutes x 10 reps supine pec stretch Reps/Minutes hold 1 min Comments arms in 90 degrees ER single knee to chest stretch Reps/Minutes hold 30 sec each side supine ball squeeze Reps/Minutes x 10 reps Manual Therapy Treatment Soft Tissue Mobilization manual iliospoas release Comments right side only in dylan test position manual quad MFR right side Body Location Right quad MFR Mobilization Type Myofascial Release Comments right sided quad guarding and tightness Manual Techniques manual pectoralis release B Type MFR/pin and stretch Body Location pec minor Body Position Supine suboccipital release Comments pt very tight and guarded upper cervical spine MET for right anterior rotated innominant Body Location right anterior innominant Body Position Hooklying Reps/Duration x 5 reps PT-OP-T Assessment and Plan Start: 06/11/23 11:36 Freq: Status: Active Protocol: Document 08/01/23 11:13 [facility] (Rec: 08/01/23 12:41 [facility] [id number]) Physical Therapy Assessment Goals 3 Impairment guarding, tightness, pain of the adductor attachments to the pubic ramus, pain over the pubic tubercles bilaterally Sales Systems Engineer Goal (LTG) pt presents with SI alignnment that that is not being compressed or shifted due to tight muscles and adducors are no longer as tight and short. Pt has negative dylan test on the right LTG Duration 12 weeks 2 Impairment upper neck breather with poor excursion of the diaphragm, pt has difficult expanding her belly with breathing and uses her upper neck muscles Short Term Goal (STG) pt is educated on diaphragmatic breathing STG Duration 4 weeks pain Impairment pelvic pain rated 6/10 worse with standing activities Sales Systems Engineer Goal (LTG) Jacqueline Tse has overall decreased c/o pain and a HEP that she can continue with at home to manage her symptoms LTG Duration 12 weeks Assessment Summary Assessment I discussed with Irma about how she is tight and restricted in the fascia surrounding her rib cage and how smoking can increase this tightness. We added in pelvic tilts for her in sitting and in supine to help improve pelvic mobility and I encouraged her to continue with her breathing exercises working on expanding her rib cage Physical Therapy Plan Frequency and Duration Frequency of Treatment 1x/Week Duration of treatment (weeks) 12 Plan of Care Start Date 06/11/23 Plan of Care End Date 09/03/23 Therapeutic Interventions Therapeutic Interventions Home Exercise Program,Manual Therapy,Patient/Caregiver Education,Self-Care/Home Management,Soft Tissue Mobilization,Therapeutic Exercises Next Visit Focus/Plan Next Note Type Treatment Note Next Visit Plan review stretches for the hips, manual therapy techniques for pelvic alignment and reduced muscle tone.
--- NOTE | 2023-08-08 12:01 | PT.OTN ---
Current Diagnoses Muscle spasm of back (08/08/23) Pelvic and perineal pain (08/08/23) Other reduced mobility (08/08/23) Physical Therapy Treatment Note PT-OP-A Visit Information Start: 06/11/23 11:36 Freq: Status: Active Protocol: Document 08/08/23 11:14 [facility] (Rec: 08/08/23 12:00 [facility] [id number]) Out-Patient Physical Therapy Visit Information Visit Information Visit Type Treatment Note Visit Start Time 11:15 Visit Stop Time 12:00 Total Visit Minutes 45 Visit Number 5 PT-OP-B Current Condition Start: 06/11/23 11:36 Freq: Status: Active Protocol: Document 06/11/23 11:38 [facility] (Rec: 06/11/23 12:12 [facility] [id number]) Current Condition History of Current Condition History of Current Condition pt report ongoing pelvic pain and pain that, she feels a pulling and twisting sensation up to her right shoulder and upper right neck. Pain also extens into her low back region into the anterior pelvis. She describes a pulling and twisting pain PT-OP-C Subjective Start: 06/11/23 11:36 Freq: Status: Active Protocol: Document 08/08/23 11:14 [facility] (Rec: 08/08/23 12:00 [facility] [id number]) OP-PT Subjective Patient Comments Patient Comments pt notes she is discouraged that her appointments with Dr Foley has been canceled. SHe is feleing a ot of twisting of her abdominal wall on the right side. She has trouble eating and feels nausea after she eats. She notes that after a bowel movement her pain is better PT-OP-F Manual Assessment Start: 06/11/23 11:36 Freq: Status: Active Protocol: Document 06/11/23 11:30 [facility] (Rec: 06/13/23 09:17 [facility] [id number]) Manual Assessments Soft Tissue Assessment Soft Tissue Mobility Assessment parapspinal guarding and increased tone throughout the thoracic and cervical spine adductor guarding/contracture R>L iliopsoas tightness R>L suboccipital muscle guarding and tightness Joint Mobility Assessment Joint Mobility Assessment thoracic kyphosis with rounded shoulders and anterior head position, multiple areas of hytomobility throughout the thoracic spine PT-OP-J Posture/Palpation/Skin Start: 06/11/23 11:36 Freq: Status: Active Protocol: Document 06/11/23 11:30 [facility] (Rec: 06/13/23 09:20 [facility] [id number]) Posture Evaluation Comments Posture Comments anterior head, rounded shoulders, thoracic kyphosis, anterior oblique tightness and decreased diaphragmatic excursion, pt breaths with upper neck Palpation Assessment Location iliopsoas R Palpation Findings Soft Tissue Tightness,Spasm, Muscle Guarding,Tenderness suboccitipals Palpation Findings Soft Tissue Tightness,Spasm, Muscle Guarding,Tenderness right adducotrs Palpation Findings Soft Tissue Tightness,Muscle Guarding,Tenderness Palpation Details tenderness along the pubic bone attachments of the adductors on the right side PT-OP-K Range of Motion Start: 06/11/23 11:36 Freq: Status: Active Protocol: Document 06/11/23 11:30 [facility] (Rec: 06/13/23 09:15 [facility] [id number]) Hip Goniometric Range of Motion Hip ROM Limitations Hip ROM Limitations Soft Tissue Tightness Comments iliopsoas tightness R greater than left with + dylan test on the right PT-OP-Q Treatments Start: 06/11/23 11:36 Freq: Status: Active Protocol: Document 08/08/23 11:14 [facility] (Rec: 08/08/23 12:00 [facility] [id number]) Therapeutic Exercises Supine Exercises pelvic tilts Reps/Minutes x 10 reps supine pec stretch Reps/Minutes hold 1 min Comments arms in 90 degrees ER single knee to chest stretch Reps/Minutes hold 30 sec each side Manual Therapy Treatment Soft Tissue Mobilization Quadratus lumborum release on the right side Mobilization Type Myofascial Release Body Position left sidelying manual iliospoas release Comments right side only in dylan test position PT-OP-T Assessment and Plan Start: 06/11/23 11:36 Freq: Status: Active Protocol: Document 08/08/23 11:14 [facility] (Rec: 08/08/23 12:00 [facility] [id number]) Physical Therapy Assessment Assessment Summary Assessment gladys did well with QL release and she felt that this got into where her pain is. I di recommend a colonoscopy for her and we talked in depth about the importance of this since it has been over 10 years since her last one and her pain is targeted on the right side of her pelvis. Physical Therapy Plan Frequency and Duration Frequency of Treatment 1x/Week Duration of treatment (weeks) 12 Plan of Care Start Date 06/11/23 Plan of Care End Date 09/03/23 Next Visit Focus/Plan Next Note Type Progress Note Next Visit Plan review stretches for the hips, manual therapy techniques for pelvic alignment and reduced muscle tone.
--- NOTE | 2023-08-15 13:52 | PT.OTN ---
Current Diagnoses Muscle spasm of back (08/15/23) Pelvic and perineal pain (08/15/23) Other reduced mobility (08/15/23) Physical Therapy Treatment Note PT-OP-A Visit Information Start: 06/11/23 11:36 Freq: Status: Active Protocol: Document 08/15/23 11:27 [facility] (Rec: 08/15/23 12:35 [facility] [id number]) Out-Patient Physical Therapy Visit Information Visit Information Visit Type Treatment Note Visit Start Time 11:20 Visit Stop Time 12:00 Total Visit Minutes 40 Visit Number 6 PT-OP-B Current Condition Start: 06/11/23 11:36 Freq: Status: Active Protocol: Document 06/11/23 11:38 [facility] (Rec: 06/11/23 12:12 [facility] [id number]) Current Condition History of Current Condition History of Current Condition pt report ongoing pelvic pain and pain that, she feels a pulling and twisting sensation up to her right shoulder and upper right neck. Pain also extens into her low back region into the anterior pelvis. She describes a pulling and twisting pain PT-OP-C Subjective Start: 06/11/23 11:36 Freq: Status: Active Protocol: Document 08/15/23 11:27 [facility] (Rec: 08/15/23 12:35 [facility] [id number]) OP-PT Subjective Patient Comments Patient Comments Irma notes she has been non stop releaseing, she could feel expanding and releasing going on, she has alot of muscle tension on the right side of the abominal wall, she feels like the tendons of the hip are pulling tight PT-OP-F Manual Assessment Start: 06/11/23 11:36 Freq: Status: Active Protocol: Document 06/11/23 11:30 [facility] (Rec: 06/13/23 09:17 [facility] [id number]) Manual Assessments Soft Tissue Assessment Soft Tissue Mobility Assessment parapspinal guarding and increased tone throughout the thoracic and cervical spine adductor guarding/contracture R>L iliopsoas tightness R>L suboccipital muscle guarding and tightness Joint Mobility Assessment Joint Mobility Assessment thoracic kyphosis with rounded shoulders and anterior head position, multiple areas of hytomobility throughout the thoracic spine PT-OP-J Posture/Palpation/Skin Start: 06/11/23 11:36 Freq: Status: Active Protocol: Document 06/11/23 11:30 [facility] (Rec: 06/13/23 09:20 [facility] [id number]) Posture Evaluation Comments Posture Comments anterior head, rounded shoulders, thoracic kyphosis, anterior oblique tightness and decreased diaphragmatic excursion, pt breaths with upper neck Palpation Assessment Location iliopsoas R Palpation Findings Soft Tissue Tightness,Spasm, Muscle Guarding,Tenderness suboccitipals Palpation Findings Soft Tissue Tightness,Spasm, Muscle Guarding,Tenderness right adducotrs Palpation Findings Soft Tissue Tightness,Muscle Guarding,Tenderness Palpation Details tenderness along the pubic bone attachments of the adductors on the right side PT-OP-K Range of Motion Start: 06/11/23 11:36 Freq: Status: Active Protocol: Document 06/11/23 11:30 [facility] (Rec: 06/13/23 09:15 [facility] [id number]) Hip Goniometric Range of Motion Hip ROM Limitations Hip ROM Limitations Soft Tissue Tightness Comments iliopsoas tightness R greater than left with + dylan test on the right PT-OP-Q Treatments Start: 06/11/23 11:36 Freq: Status: Active Protocol: Document 08/15/23 11:20 [facility] (Rec: 08/15/23 13:52 [facility] [id number]) Manual Therapy Treatment Soft Tissue Mobilization Quadratus lumborum release on the right side Mobilization Type Myofascial Release Body Position left sidelying manual iliospoas release Comments right side only in dylan test position manual quad MFR right side Body Location Right quad MFR Mobilization Type Myofascial Release Comments right sided quad guarding and tightness Manual Techniques manual iliopsoas stretch Type Right side Body Position Hooklying Reps/Duration 1 rep holding x 1 min MET for right anterior rotated innominant Body Location right anterior innominant Body Position Hooklying Reps/Duration x 5 reps PT-OP-T Assessment and Plan Start: 06/11/23 11:36 Freq: Status: Active Protocol: Document 08/15/23 11:20 [facility] (Rec: 08/15/23 13:52 [facility] [id number]) Physical Therapy Assessment Assessment Summary Assessment Jacqueline blanchard feels she is making progress and has been able to work on some self releases at home. She is realizing that trauma is stored in her muscles and trying to work on trauma support as well as PT. Physical Therapy Plan Frequency and Duration Frequency of Treatment 1x/Week Duration of treatment (weeks) 12 Plan of Care Start Date 06/11/23 Plan of Care End Date 09/03/23 Therapeutic Interventions Therapeutic Interventions Home Exercise Program,Manual Therapy,Patient/Caregiver Education,Self-Care/Home Management,Soft Tissue Mobilization,Therapeutic Exercises Next Visit Focus/Plan Next Note Type Treatment Note Next Visit Plan recheck leg length next visit and continue working on releasing tight adductors and hip musculature
--- NOTE | 2023-08-22 16:17 | PT.OTN ---
Current Diagnoses Muscle spasm of back (08/22/23) Pelvic and perineal pain (08/22/23) Other reduced mobility (08/22/23) Physical Therapy Treatment Note PT-OP-A Visit Information Start: 06/11/23 11:36 Freq: Status: Active Protocol: Document 08/22/23 11:22 [facility] (Rec: 08/22/23 14:14 [facility] [id number]) Out-Patient Physical Therapy Visit Information Visit Information Visit Type Treatment Note Visit Start Time 11:20 Visit Stop Time 12:00 Total Visit Minutes 40 Visit Number 7 PT-OP-B Current Condition Start: 06/11/23 11:36 Freq: Status: Active Protocol: Document 06/11/23 11:38 [facility] (Rec: 06/11/23 12:12 [facility] [id number]) Current Condition History of Current Condition History of Current Condition pt report ongoing pelvic pain and pain that, she feels a pulling and twisting sensation up to her right shoulder and upper right neck. Pain also extends into her low back region into the anterior pelvis. She describes a pulling and twisting pain PT-OP-C Subjective Start: 06/11/23 11:36 Freq: Status: Active Protocol: Document 08/22/23 11:22 [facility] (Rec: 08/22/23 14:14 [facility] [id number]) OP-PT Subjective Patient Comments Patient Comments pt notes [place] and [place]. She is not as sore today as she was Patient Reported Progress Improving PT-OP-F Manual Assessment Start: 06/11/23 11:36 Freq: Status: Active Protocol: Document 06/11/23 11:30 [facility] (Rec: 06/13/23 09:17 [facility] [id number]) Manual Assessments Soft Tissue Assessment Soft Tissue Mobility Assessment parapspinal guarding and increased tone throughout the thoracic and cervical spine adductor guarding/contracture R>L iliopsoas tightness R>L suboccipital muscle guarding and tightness Joint Mobility Assessment Joint Mobility Assessment thoracic kyphosis with rounded shoulders and anterior head position, multiple areas of hytomobility throughout the thoracic spine PT-OP-J Posture/Palpation/Skin Start: 06/11/23 11:36 Freq: Status: Active Protocol: Document 06/11/23 11:30 [facility] (Rec: 06/13/23 09:20 [facility] [id number]) Posture Evaluation Comments Posture Comments anterior head, rounded shoulders, thoracic kyphosis, anterior oblique tightness and decreased diaphragmatic excursion, pt breaths with upper neck Palpation Assessment Location iliopsoas R Palpation Findings Soft Tissue Tightness,Spasm, Muscle Guarding,Tenderness suboccitipals Palpation Findings Soft Tissue Tightness,Spasm, Muscle Guarding,Tenderness right adducotrs Palpation Findings Soft Tissue Tightness,Muscle Guarding,Tenderness Palpation Details tenderness along the pubic bone attachments of the adductors on the right side PT-OP-K Range of Motion Start: 06/11/23 11:36 Freq: Status: Active Protocol: Document 06/11/23 11:30 [facility] (Rec: 06/13/23 09:15 [facility] [id number]) Hip Goniometric Range of Motion Hip ROM Limitations Hip ROM Limitations Soft Tissue Tightness Comments iliopsoas tightness R greater than left with + dylan test on the right PT-OP-Q Treatments Start: 06/11/23 11:36 Freq: Status: Active Protocol: Document 08/22/23 11:15 [facility] (Rec: 08/22/23 16:17 [facility] [id number]) Manual Therapy Treatment Soft Tissue Mobilization Quadratus lumborum release on the right side Mobilization Type Myofascial Release Body Position left sidelying manual iliospoas release Comments right side only in dylan test position Manual Techniques scalene stretch B Comments hold 1-2 min, left sided scalene tightness today suboccipital release Comments pt very tight and guarded upper cervical spine PT-OP-T Assessment and Plan Start: 06/11/23 11:36 Freq: Status: Active Protocol: Document 08/22/23 11:15 [facility] (Rec: 08/22/23 16:17 [facility] [id number]) Physical Therapy Assessment Assessment Summary Assessment Irma is noting more of the self release is working for her for home and she had a better week this past week. Physical Therapy Plan Frequency and Duration Frequency of Treatment 1x/Week Duration of treatment (weeks) 12 Plan of Care Start Date 06/11/23 Plan of Care End Date 09/03/23 Therapeutic Interventions Therapeutic Interventions Home Exercise Program,Manual Therapy,Patient/Caregiver Education,Self-Care/Home Management,Soft Tissue Mobilization,Therapeutic Exercises Next Visit Focus/Plan Next Note Type Treatment Note Next Visit Plan recheck leg length next visit and continue working on releasing tight adductors and hip musculature
--- NOTE | 2023-08-29 16:15 | PT.OTN ---
Current Diagnoses Muscle spasm of back (08/29/23) Pelvic and perineal pain (08/29/23) Other reduced mobility (08/29/23) Physical Therapy Treatment Note PT-OP-A Visit Information Start: 06/11/23 11:36 Freq: Status: Active Protocol: Document 08/29/23 11:24 [facility] (Rec: 08/29/23 12:01 [facility] [id number]) Out-Patient Physical Therapy Visit Information Visit Information Visit Type Treatment Note Visit Start Time 11:20 Visit Stop Time 12:00 Total Visit Minutes 40 Visit Number 8 PT-OP-B Current Condition Start: 06/11/23 11:36 Freq: Status: Active Protocol: Document 06/11/23 11:38 [facility] (Rec: 06/11/23 12:12 [facility] [id number]) Current Condition History of Current Condition History of Current Condition pt report ongoing pelvic pain and pain that, she feels a pulling and twisting sensation up to her right shoulder and upper right neck. Pain also extens into her low back region into the anterior pelvis. She describes a pulling and twisting pain PT-OP-C Subjective Start: 06/11/23 11:36 Freq: Status: Active Protocol: Document 08/29/23 11:24 [facility] (Rec: 08/29/23 12:01 [facility] [id number]) OP-PT Subjective Patient Comments Patient Comments pt had her covid shots and flu shots and feels like it wiped her out for the past 3 days PT-OP-F Manual Assessment Start: 06/11/23 11:36 Freq: Status: Active Protocol: Document 06/11/23 11:30 [facility] (Rec: 06/13/23 09:17 [facility] [id number]) Manual Assessments Soft Tissue Assessment Soft Tissue Mobility Assessment parapspinal guarding and increased tone throughout the thoracic and cervical spine adductor guarding/contracture R>L iliopsoas tightness R>L suboccipital muscle guarding and tightness Joint Mobility Assessment Joint Mobility Assessment thoracic kyphosis with rounded shoulders and anterior head position, multiple areas of hytomobility throughout the thoracic spine PT-OP-J Posture/Palpation/Skin Start: 06/11/23 11:36 Freq: Status: Active Protocol: Document 06/11/23 11:30 [facility] (Rec: 06/13/23 09:20 [facility] [id number]) Posture Evaluation Comments Posture Comments anterior head, rounded shoulders, thoracic kyphosis, anterior oblique tightness and decreased diaphragmatic excursion, pt breaths with upper neck Palpation Assessment Location iliopsoas R Palpation Findings Soft Tissue Tightness,Spasm, Muscle Guarding,Tenderness suboccitipals Palpation Findings Soft Tissue Tightness,Spasm, Muscle Guarding,Tenderness right adducotrs Palpation Findings Soft Tissue Tightness,Muscle Guarding,Tenderness Palpation Details tenderness along the pubic bone attachments of the adductors on the right side PT-OP-K Range of Motion Start: 06/11/23 11:36 Freq: Status: Active Protocol: Document 06/11/23 11:30 [facility] (Rec: 06/13/23 09:15 [facility] [id number]) Hip Goniometric Range of Motion Hip ROM Limitations Hip ROM Limitations Soft Tissue Tightness Comments iliopsoas tightness R greater than left with + dylan test on the right PT-OP-Q Treatments Start: 06/11/23 11:36 Freq: Status: Active Protocol: Document 08/29/23 11:24 [facility] (Rec: 08/29/23 12:01 [facility] [id number]) Manual Therapy Treatment Soft Tissue Mobilization Quadratus lumborum release on the right side Mobilization Type Myofascial Release Body Position left sidelying manual iliospoas release Comments right side only in dylan test position manual quad MFR right side Body Location Right quad MFR Mobilization Type Myofascial Release Comments right sided quad guarding and tightness Manual Techniques MET for right anterior rotated innominant Body Location right anterior innominant Body Position Hooklying Reps/Duration x 5 reps PT-OP-T Assessment and Plan Start: 06/11/23 11:36 Freq: Status: Active Protocol: Document 08/29/23 11:24 [facility] (Rec: 08/29/23 12:01 [facility] [id number]) Physical Therapy Assessment Assessment Summary Assessment Irma was tightner today in her psoas but is feelingtight all over today do to s/o covid and flu shot Physical Therapy Plan Frequency and Duration Frequency of Treatment 1x/Week Duration of treatment (weeks) 8 Plan of Care Start Date 08/29/23 Plan of Care End Date 10/29/23 Next Visit Focus/Plan Next Note Type Treatment Note Next Visit Plan recheck leg length next visit and continue working on releasing tight adductors and hip musculature
--- NOTE | 2023-09-05 13:31 | PT.OTN ---
Current Diagnoses Muscle spasm of back (09/05/23) Pelvic and perineal pain (09/05/23) Other reduced mobility (09/05/23) Physical Therapy Treatment Note PT-OP-A Visit Information Start: 06/11/23 11:36 Freq: Status: Active Protocol: Document 09/05/23 13:25 [facility] (Rec: 09/05/23 13:31 [facility] [id number]) Out-Patient Physical Therapy Visit Information Visit Information Visit Type Treatment Note Visit Start Time 11:20 Visit Stop Time 12:00 Total Visit Minutes 40 Visit Number 9 PT-OP-B Current Condition Start: 06/11/23 11:36 Freq: Status: Active Protocol: Document 06/11/23 11:38 [facility] (Rec: 06/11/23 12:12 [facility] [id number]) Current Condition History of Current Condition History of Current Condition pt report ongoing pelvic pain and pain that, she feels a pulling and twisting sensation up to her right shoulder and upper right neck. Pain also extens into her low back region into the anterior pelvis. She describes a pulling and twisting pain PT-OP-C Subjective Start: 06/11/23 11:36 Freq: Status: Active Protocol: Document 09/05/23 13:25 [facility] (Rec: 09/05/23 13:31 [facility] [id number]) OP-PT Subjective Patient Comments Patient Comments Irma notes she is feeling better from her covid and flu vaccine last week. She still is feeling the twisting type pain from her pelvis up through the anterior abdominal wall PT-OP-F Manual Assessment Start: 06/11/23 11:36 Freq: Status: Active Protocol: Document 06/11/23 11:30 [facility] (Rec: 06/13/23 09:17 [facility] [id number]) Manual Assessments Soft Tissue Assessment Soft Tissue Mobility Assessment parapspinal guarding and increased tone throughout the thoracic and cervical spine adductor guarding/contracture R>L iliopsoas tightness R>L suboccipital muscle guarding and tightness Joint Mobility Assessment Joint Mobility Assessment thoracic kyphosis with rounded shoulders and anterior head position, multiple areas of hytomobility throughout the thoracic spine PT-OP-J Posture/Palpation/Skin Start: 06/11/23 11:36 Freq: Status: Active Protocol: Document 06/11/23 11:30 [facility] (Rec: 06/13/23 09:20 [facility] [id number]) Posture Evaluation Comments Posture Comments anterior head, rounded shoulders, thoracic kyphosis, anterior oblique tightness and decreased diaphragmatic excursion, pt breaths with upper neck Palpation Assessment Location iliopsoas R Palpation Findings Soft Tissue Tightness,Spasm, Muscle Guarding,Tenderness suboccitipals Palpation Findings Soft Tissue Tightness,Spasm, Muscle Guarding,Tenderness right adducotrs Palpation Findings Soft Tissue Tightness,Muscle Guarding,Tenderness Palpation Details tenderness along the pubic bone attachments of the adductors on the right side PT-OP-K Range of Motion Start: 06/11/23 11:36 Freq: Status: Active Protocol: Document 06/11/23 11:30 [facility] (Rec: 06/13/23 09:15 [facility] [id number]) Hip Goniometric Range of Motion Hip ROM Limitations Hip ROM Limitations Soft Tissue Tightness Comments iliopsoas tightness R greater than left with + dylan test on the right PT-OP-Q Treatments Start: 06/11/23 11:36 Freq: Status: Active Protocol: Document 09/05/23 13:25 [facility] (Rec: 09/05/23 13:31 [facility] [id number]) Manual Therapy Treatment Soft Tissue Mobilization Quadratus lumborum release on the right side Mobilization Type Myofascial Release Body Position left sidelying manual iliospoas release Comments right side only in dylan test position manual quad MFR right side Body Location Right quad MFR Mobilization Type Myofascial Release Comments right sided quad guarding and tightness Manual Techniques manual iliopsoas stretch Type Right side Body Position Hooklying Reps/Duration 1 rep holding x 1 min MET for right anterior rotated innominant Body Location right anterior innominant Body Position Hooklying Reps/Duration x 5 reps PT-OP-T Assessment and Plan Start: 06/11/23 11:36 Freq: Status: Active Protocol: Document 09/05/23 13:25 [facility] (Rec: 09/05/23 13:31 [facility] [id number]) Physical Therapy Assessment Assessment Summary Assessment Irma did respond well to iliopsoas stretching today, she still has anterior hip pain with full hip flexion on the right side Physical Therapy Plan Frequency and Duration Frequency of Treatment 1x/Week Duration of treatment (weeks) 8 Plan of Care Start Date 08/29/23 Plan of Care End Date 10/29/23 Next Visit Focus/Plan Next Note Type Treatment Note Next Visit Plan recheck leg length next visit and continue working on releasing tight adductors and hip musculature
--- NOTE | 2023-09-12 13:00 | PT.OTN ---
Current Diagnoses Muscle spasm of back (09/12/23) Pelvic and perineal pain (09/12/23) Other reduced mobility (09/12/23) Physical Therapy Treatment Note PT-OP-A Visit Information Start: 06/11/23 11:36 Freq: Status: Active Protocol: Document 09/12/23 11:19 [facility] (Rec: 09/12/23 12:04 [facility] [id number]) Out-Patient Physical Therapy Visit Information Visit Information Visit Type Treatment Note Visit Start Time 11:20 Visit Stop Time 12:00 Total Visit Minutes 40 Visit Number 10 PT-OP-B Current Condition Start: 06/11/23 11:36 Freq: Status: Active Protocol: Document 06/11/23 11:38 [facility] (Rec: 06/11/23 12:12 [facility] [id number]) Current Condition History of Current Condition History of Current Condition pt report ongoing pelvic pain and pain that, she feels a pulling and twisting sensation up to her right shoulder and upper right neck. Pain also extens into her low back region into the anterior pelvis. She describes a pulling and twisting pain PT-OP-C Subjective Start: 06/11/23 11:36 Freq: Status: Active Protocol: Document 09/12/23 11:19 [facility] (Rec: 09/12/23 12:04 [facility] [id number]) OP-PT Subjective Patient Comments Patient Comments Irma feels like she is tensing her body again and she has been sleep deprived all week as her smoke alarm battery has been beeping PT-OP-F Manual Assessment Start: 06/11/23 11:36 Freq: Status: Active Protocol: Document 06/11/23 11:30 [facility] (Rec: 06/13/23 09:17 [facility] [id number]) Manual Assessments Soft Tissue Assessment Soft Tissue Mobility Assessment parapspinal guarding and increased tone throughout the thoracic and cervical spine adductor guarding/contracture R>L iliopsoas tightness R>L suboccipital muscle guarding and tightness Joint Mobility Assessment Joint Mobility Assessment thoracic kyphosis with rounded shoulders and anterior head position, multiple areas of hytomobility throughout the thoracic spine PT-OP-J Posture/Palpation/Skin Start: 06/11/23 11:36 Freq: Status: Active Protocol: Document 06/11/23 11:30 [facility] (Rec: 06/13/23 09:20 [facility] [id number]) Posture Evaluation Comments Posture Comments anterior head, rounded shoulders, thoracic kyphosis, anterior oblique tightness and decreased diaphragmatic excursion, pt breaths with upper neck Palpation Assessment Location iliopsoas R Palpation Findings Soft Tissue Tightness,Spasm, Muscle Guarding,Tenderness suboccitipals Palpation Findings Soft Tissue Tightness,Spasm, Muscle Guarding,Tenderness right adducotrs Palpation Findings Soft Tissue Tightness,Muscle Guarding,Tenderness Palpation Details tenderness along the pubic bone attachments of the adductors on the right side PT-OP-K Range of Motion Start: 06/11/23 11:36 Freq: Status: Active Protocol: Document 06/11/23 11:30 [facility] (Rec: 06/13/23 09:15 [facility] [id number]) Hip Goniometric Range of Motion Hip ROM Limitations Hip ROM Limitations Soft Tissue Tightness Comments iliopsoas tightness R greater than left with + dylan test on the right PT-OP-Q Treatments Start: 06/11/23 11:36 Freq: Status: Active Protocol: Document 09/12/23 11:15 [facility] (Rec: 09/18/23 09:01 [facility] [id number]) Therapeutic Exercises Supine Exercises pelvic tilts Reps/Minutes x 10 reps Manual Therapy Treatment Soft Tissue Mobilization Quadratus lumborum release on the right side Mobilization Type Myofascial Release Body Position left sidelying manual iliospoas release Comments right side only in dylan test position Manual Techniques manual hamstring and adductor stretch Type manual stretches Reps/Duration hold x 30 sec each Comments supine manual adductor and hamstring stretch B MET for right anterior rotated innominant Body Location right anterior innominant Body Position Hooklying Reps/Duration x 5 reps PT-OP-T Assessment and Plan Start: 06/11/23 11:36 Freq: Status: Active Protocol: Document 09/12/23 11:15 [facility] (Rec: 09/18/23 09:01 [facility] [id number]) Physical Therapy Assessment Assessment Summary Assessment Irma has been able to tolerate stretches better, she still has abdominal pain in the region of the iliocecal valve. She will be scheduling her colonoscopy Physical Therapy Plan Frequency and Duration Frequency of Treatment 1x/Week Duration of treatment (weeks) 8 Plan of Care Start Date 08/29/23 Plan of Care End Date 10/29/23 Therapeutic Interventions Therapeutic Interventions Home Exercise Program,Manual Therapy,Patient/Caregiver Education,Self-Care/Home Management,Soft Tissue Mobilization,Therapeutic Exercises Next Visit Focus/Plan Next Note Type Treatment Note Next Visit Plan work towards increasing HEP for flexibility and ROM
--- NOTE | 2023-09-19 15:25 | PT.OTN ---
Current Diagnoses Muscle spasm of back (09/19/23) Pelvic and perineal pain (09/19/23) Other reduced mobility (09/19/23) Physical Therapy Treatment Note PT-OP-A Visit Information Start: 06/11/23 11:36 Freq: Status: Active Protocol: Document 09/19/23 11:13 [facility] (Rec: 09/19/23 11:58 [facility] [id number]) Out-Patient Physical Therapy Visit Information Visit Information Visit Type Progress Note Visit Start Time 11:13 Visit Stop Time 11:52 Total Visit Minutes 40 Visit Number 11 PT-OP-B Current Condition Start: 06/11/23 11:36 Freq: Status: Active Protocol: Document 06/11/23 11:38 [facility] (Rec: 06/11/23 12:12 [facility] [id number]) Current Condition History of Current Condition History of Current Condition pt report ongoing pelvic pain and pain that, she feels a pulling and twisting sensation up to her right shoulder and upper right neck. Pain also extens into her low back region into the anterior pelvis. She describes a pulling and twisting pain PT-OP-C Subjective Start: 06/11/23 11:36 Freq: Status: Active Protocol: Document 09/19/23 11:13 [facility] (Rec: 09/19/23 11:57 [facility] [id number]) OP-PT Subjective Patient Comments Patient Comments pt reports she feels like things are releasing and then tightening up again. The ILU massage seems to be working pretty good and she has been doing her stretches in the am when she wakes up. Patient Reported Progress Improving PT-OP-F Manual Assessment Start: 06/11/23 11:36 Freq: Status: Active Protocol: Document 06/11/23 11:30 [facility] (Rec: 06/13/23 09:17 [facility] [id number]) Manual Assessments Soft Tissue Assessment Soft Tissue Mobility Assessment parapspinal guarding and increased tone throughout the thoracic and cervical spine adductor guarding/contracture R>L iliopsoas tightness R>L suboccipital muscle guarding and tightness Joint Mobility Assessment Joint Mobility Assessment thoracic kyphosis with rounded shoulders and anterior head position, multiple areas of hytomobility throughout the thoracic spine PT-OP-J Posture/Palpation/Skin Start: 06/11/23 11:36 Freq: Status: Active Protocol: Document 06/11/23 11:30 [facility] (Rec: 06/13/23 09:20 [facility] [id number]) Posture Evaluation Comments Posture Comments anterior head, rounded shoulders, thoracic kyphosis, anterior oblique tightness and decreased diaphragmatic excursion, pt breaths with upper neck Palpation Assessment Location iliopsoas R Palpation Findings Soft Tissue Tightness,Spasm, Muscle Guarding,Tenderness suboccitipals Palpation Findings Soft Tissue Tightness,Spasm, Muscle Guarding,Tenderness right adducotrs Palpation Findings Soft Tissue Tightness,Muscle Guarding,Tenderness Palpation Details tenderness along the pubic bone attachments of the adductors on the right side PT-OP-K Range of Motion Start: 06/11/23 11:36 Freq: Status: Active Protocol: Document 06/11/23 11:30 [facility] (Rec: 06/13/23 09:15 [facility] [id number]) Hip Goniometric Range of Motion Hip ROM Limitations Hip ROM Limitations Soft Tissue Tightness Comments iliopsoas tightness R greater than left with + dylan test on the right PT-OP-Q Treatments Start: 06/11/23 11:36 Freq: Status: Active Protocol: Document 09/19/23 11:13 [facility] (Rec: 09/19/23 11:57 [facility] [id number]) Therapeutic Exercises Supine Exercises lower trunk rotation Reps/Minutes x [address] double knee to chest stretch Reps/Minutes hold 1-2 min single knee to chest stretch Reps/Minutes hold 30 sec each side iliopsoas stretch in supine in dylan test position Reps/Minutes hold 1-2 minutes Manual Therapy Treatment Soft Tissue Mobilization manual release of the diaphragm Mobilization Type Myofascial Release Comments tightness across the fascial attachments to the rib cage, ivone tse tolerates this well Quadratus lumborum release on the right side Mobilization Type Myofascial Release Body Position left sidelying manual iliospoas release Comments right side only in dylan test position Manual Techniques manual hamstring and adductor stretch Type manual stretches Reps/Duration hold x 30 sec each Comments supine manual adductor and hamstring stretch B PT-OP-T Assessment and Plan Start: 06/11/23 11:36 Freq: Status: Active Protocol: Document 09/19/23 11:13 [facility] (Rec: 09/19/23 11:57 [facility] [id number]) Physical Therapy Assessment Goals 3 Impairment guarding, tightness, pain of the adductor attachments to the pubic ramus, pain over the pubic tubercles bilaterally Alf Goal (LTG) pt presents with SI alignnment that that is not being compressed or shifted due to tight muscles and adducors are no longer as tight and short. Pt has negative dylan test on the right Good progress and Irma presented with equal leg length the last couple of visits LTG Duration 12 weeks 2 Impairment upper neck breather with poor excursion of the diaphragm, pt has difficult expanding her belly with breathing and uses her upper neck muscles Short Term Goal (STG) pt is educated on diaphragmatic breathing Irma has been woring on her diaphragmatic breathing at home, she is still really limited in fascial mobility at the diaphragm STG Duration 4 weeks pain Impairment pelvic pain rated 6/10 worse with standing activities Labor Relations Teacher Goal (LTG) Ivone Tse has overall decreased c/o pain and a HEP that she can continue with at home to manage her symptoms Some progress LTG Duration 12 weeks Assessment Summary Assessment Irma was able to tolerate additional stretches today and she has been able to work on her stretches at home. She is very restricted and tight in the rib cage and we have talked about diaphragmatic breathing especially with her being a smoker Physical Therapy Plan Frequency and Duration Frequency of Treatment 1x/Week Duration of treatment (weeks) 8 Plan of Care Start Date 08/29/23 Plan of Care End Date 10/29/23 Therapeutic Interventions Therapeutic Interventions Home Exercise Program,Manual Therapy,Patient/Caregiver Education,Self-Care/Home Management,Soft Tissue Mobilization,Therapeutic Exercises Next Visit Focus/Plan Next Note Type Treatment Note Next Visit Plan work towards increasing HEP for flexibility and ROM, continue with manual therapy work to reduce tension in iliopsoas, adductors, diaphraghm
--- NOTE | 2023-09-19 15:26 | PT.OPPOC ---
Physical, Occupational & Speech Therapy At [facility] Current Diagnoses Muscle spasm of back (09/19/23) Pelvic and perineal pain (09/19/23) Other reduced mobility (09/19/23) Visit Care Team Role Provider Type Rikki Foley DO Attending Provider Physician Family Provider Primary Care Provider Referring Provider Specialty: Family Practice Address: [address] [place] [address], [facility] Email: Plan Of Care PT-OP-T Assessment and Plan Start: 06/11/23 11:36 Freq: Status: Active Protocol: Document 09/19/23 11:13 [facility] (Rec: 09/19/23 11:57 [facility] [id number]) Physical Therapy Assessment Goals 3 Impairment guarding, tightness, pain of the adductor attachments to the pubic ramus, pain over the pubic tubercles bilaterally College Instructor Goal (LTG) pt presents with SI alignment that that is not being compressed or shifted due to tight muscles and adductors are no longer as tight and short. Pt has negative dylan test on the right Good progress and Irma presented with equal leg length the last couple of visits LTG Duration 12 weeks 2 Impairment upper neck breather with poor excursion of the diaphragm, pt has difficult expanding her belly with breathing and uses her upper neck muscles Short Term Goal (STG) pt is educated on diaphragmatic breathing Irma has been working on her diaphragmatic breathing at home, she is still really limited in fascial mobility at the diaphragm STG Duration 4 weeks pain Impairment pelvic pain rated 6/10 worse with standing activities Custodial Goal (LTG) Jacqueline Tse has overall decreased c/o pain and a HEP that she can continue with at home to manage her symptoms Some progress LTG Duration 12 weeks Assessment Summary Assessment Irma was able to tolerate additional stretches today and she has been able to work on her stretches at home. She is very restricted and tight in the rib cage and we have talked about diaphragmatic breathing especially with her being a smoker Physical Therapy Plan Frequency and Duration Frequency of Treatment 1x/Week Duration of treatment (weeks) 8 Plan of Care Start Date 08/29/23 Plan of Care End Date 10/29/23 Therapeutic Interventions Therapeutic Interventions Home Exercise Program,Manual Therapy,Patient/Caregiver Education,Self-Care/Home Management,Soft Tissue Mobilization,Therapeutic Exercises Next Visit Focus/Plan Next Note Type Treatment Note Next Visit Plan work towards increasing HEP for flexibility and ROM, continue with manual therapy work to reduce tension in iliopsoas, adductors, diaphragm Plan of Care Dates Plan of Care Start Date 08/29/23 Plan of Care End Date 10/29/23 Electronically Signed by: Crissy Lees, PT 09/19/23 0496 If you are in agreement with this Plan of Care, please return a signed and dated copy. I have reviewed this Plan of Care and certify that the skilled therapy services above are required to meet the patient?s needs. Physician Signature Date Printed Name and Credentials Clinical Instructor Signature Printed Name and Credentials
--- NOTE | 2023-09-25 12:13 | PT.OTN ---
Current Diagnoses Muscle spasm of back (09/25/23) Pelvic and perineal pain (09/25/23) Other reduced mobility (09/25/23) Physical Therapy Treatment Note PT-OP-A Visit Information Start: 06/11/23 11:36 Freq: Status: Active Protocol: Document 09/25/23 11:17 [facility] (Rec: 09/25/23 12:12 [facility] [id number]) Out-Patient Physical Therapy Visit Information Visit Information Visit Start Time 11:15 Visit Stop Time 12:00 Total Visit Minutes 45 Visit Number 12 PT-OP-B Current Condition Start: 06/11/23 11:36 Freq: Status: Active Protocol: Document 06/11/23 11:38 [facility] (Rec: 06/11/23 12:12 [facility] [id number]) Current Condition History of Current Condition History of Current Condition pt report ongoing pelvic pain and pain that, she feels a pulling and twisting sensation up to her right shoulder and upper right neck. Pain also extens into her low back region into the anterior pelvis. She describes a pulling and twisting pain PT-OP-C Subjective Start: 06/11/23 11:36 Freq: Status: Active Protocol: Document 09/25/23 11:17 [facility] (Rec: 09/25/23 12:12 [facility] [id number]) OP-PT Subjective Patient Comments Patient Comments Irma notes she is really noting the anterior shoulder tightness and the anterior pelvis. She notes she is having better luch with her bowel movements PT-OP-F Manual Assessment Start: 06/11/23 11:36 Freq: Status: Active Protocol: Document 06/11/23 11:30 [facility] (Rec: 06/13/23 09:17 [facility] [id number]) Manual Assessments Soft Tissue Assessment Soft Tissue Mobility Assessment parapspinal guarding and increased tone throughout the thoracic and cervical spine adductor guarding/contracture R>L iliopsoas tightness R>L suboccipital muscle guarding and tightness Joint Mobility Assessment Joint Mobility Assessment thoracic kyphosis with rounded shoulders and anterior head position, multiple areas of hytomobility throughout the thoracic spine PT-OP-J Posture/Palpation/Skin Start: 06/11/23 11:36 Freq: Status: Active Protocol: Document 06/11/23 11:30 [facility] (Rec: 06/13/23 09:20 [facility] [id number]) Posture Evaluation Comments Posture Comments anterior head, rounded shoulders, thoracic kyphosis, anterior oblique tightness and decreased diaphragmatic excursion, pt breaths with upper neck Palpation Assessment Location iliopsoas R Palpation Findings Soft Tissue Tightness,Spasm, Muscle Guarding,Tenderness suboccitipals Palpation Findings Soft Tissue Tightness,Spasm, Muscle Guarding,Tenderness right adducotrs Palpation Findings Soft Tissue Tightness,Muscle Guarding,Tenderness Palpation Details tenderness along the pubic bone attachments of the adductors on the right side PT-OP-K Range of Motion Start: 06/11/23 11:36 Freq: Status: Active Protocol: Document 06/11/23 11:30 [facility] (Rec: 06/13/23 09:15 [facility] [id number]) Hip Goniometric Range of Motion Hip ROM Limitations Hip ROM Limitations Soft Tissue Tightness Comments iliopsoas tightness R greater than left with + dylan test on the right PT-OP-Q Treatments Start: 06/11/23 11:36 Freq: Status: Active Protocol: Document 09/25/23 11:17 [facility] (Rec: 09/25/23 12:12 [facility] [id number]) Therapeutic Exercises Supine Exercises diaphragmatic breathing Reps/Minutes x 10 reps supine pec stretch Reps/Minutes hold 1 min Comments arms in 90 degrees ER Sitting Exercises seated thoracic extension with shoulder elevation Reps/Minutes x 5 reps each side Comments worked on seated shoulder flexion with thoracic extension Standing Exercises standing doorway chest stretch Reps/Minutes hold 30 sec each side repeat 2 times Manual Therapy Treatment Soft Tissue Mobilization manual release of the diaphragm Mobilization Type Myofascial Release Comments tightness across the fascial attachments to the rib cage, ivone tse tolerates this well Quadratus lumborum release on the right side Mobilization Type Myofascial Release Body Position left sidelying manual iliospoas release Comments right side only in dylan test position Manual Techniques manual hamstring and adductor stretch Type manual stretches Reps/Duration hold x 30 sec each Comments supine manual adductor and hamstring stretch B manual pectoralis release B Type MFR/pin and stretch Body Location pec minor Body Position Supine PT-OP-T Assessment and Plan Start: 06/11/23 11:36 Freq: Status: Active Protocol: Document 09/25/23 11:17 [facility] (Rec: 09/25/23 12:12 [facility] [id number]) Physical Therapy Assessment Goals 3 Impairment guarding, tightness, pain of the adductor attachments to the pubic ramus, pain over the pubic tubercles bilaterally [facility] Goal (LTG) pt presents with SI alignnment that that is not being compressed or shifted due to tight muscles and adducors are no longer as tight and short. Pt has negative dylan test on the right Good progress and Irma presented with equal leg length the last couple of visits LTG Duration 12 weeks 2 Impairment upper neck breather with poor excursion of the diaphragm, pt has difficult expanding her belly with breathing and uses her upper neck muscles Short Term Goal (STG) pt is educated on diaphragmatic breathing Irma has been woring on her diaphragmatic breathing at home, she is still really limited in fascial mobility at the diaphragm STG Duration 4 weeks pain Impairment pelvic pain rated 7/10 worse with standing activities [facility] Goal (LTG) Ivone Tse has overall decreased c/o pain and a HEP that she can continue with at home to manage her symptoms Some progress LTG Duration 12 weeks Assessment Summary Assessment ivone tse reports she was able to do more after last visit and walked around the casino longer and had more tolerance for slot machines. I added in a doorway chest stretch for Irma, she does get overwhelmed with too many exercises so we talked about breaking them up and rotating them so she doesn't have to do as many per day. I also started gentle mid back stretches in sitting working on thoracic extension Physical Therapy Plan Frequency and Duration Frequency of Treatment 1x/Week Duration of treatment (weeks) 8 Plan of Care Start Date 08/29/23 Plan of Care End Date 10/29/23 Therapeutic Interventions Therapeutic Interventions Home Exercise Program,Manual Therapy,Patient/Caregiver Education,Self-Care/Home Management,Soft Tissue Mobilization,Therapeutic Exercises Next Visit Focus/Plan Next Note Type Treatment Note Next Visit Plan continue to work on seated thoracic extension and pec min stretching
--- NOTE | 2023-10-01 14:30 | PT.OTN ---
Current Diagnoses Muscle spasm of back (10/01/23) Pelvic and perineal pain (10/01/23) Other reduced mobility (10/01/23) Physical Therapy Treatment Note PT-OP-A Visit Information Start: 06/11/23 11:36 Freq: Status: Active Protocol: Document 10/01/23 13:52 [facility] (Rec: 10/01/23 14:30 [facility] [id number]) Out-Patient Physical Therapy Visit Information Visit Information Visit Number 13 PT-OP-B Current Condition Start: 06/11/23 11:36 Freq: Status: Active Protocol: Document 06/11/23 11:38 [facility] (Rec: 06/11/23 12:12 [facility] [id number]) Current Condition History of Current Condition History of Current Condition pt report ongoing pelvic pain and pain that, she feels a pulling and twisting sensation up to her right shoulder and upper right neck. Pain also extens into her low back region into the anterior pelvis. She describes a pulling and twisting pain PT-OP-C Subjective Start: 06/11/23 11:36 Freq: Status: Active Protocol: Document 10/01/23 13:52 [facility] (Rec: 10/01/23 14:30 [facility] [id number]) OP-PT Subjective Patient Comments Patient Comments Irma notes she has been doing a lot of bending twisting and lifting, she notes she hasn't been able to get a lot of rest and sleep. She notes when she tries to sit her abdomen and pelvis feel bunched up. PT-OP-F Manual Assessment Start: 06/11/23 11:36 Freq: Status: Active Protocol: Document 06/11/23 11:30 [facility] (Rec: 06/13/23 09:17 [facility] [id number]) Manual Assessments Soft Tissue Assessment Soft Tissue Mobility Assessment parapspinal guarding and increased tone throughout the thoracic and cervical spine adductor guarding/contracture R>L iliopsoas tightness R>L suboccipital muscle guarding and tightness Joint Mobility Assessment Joint Mobility Assessment thoracic kyphosis with rounded shoulders and anterior head position, multiple areas of hytomobility throughout the thoracic spine PT-OP-J Posture/Palpation/Skin Start: 06/11/23 11:36 Freq: Status: Active Protocol: Document 06/11/23 11:30 [facility] (Rec: 06/13/23 09:20 [facility] [id number]) Posture Evaluation Comments Posture Comments anterior head, rounded shoulders, thoracic kyphosis, anterior oblique tightness and decreased diaphragmatic excursion, pt breaths with upper neck Palpation Assessment Location iliopsoas R Palpation Findings Soft Tissue Tightness,Spasm, Muscle Guarding,Tenderness suboccitipals Palpation Findings Soft Tissue Tightness,Spasm, Muscle Guarding,Tenderness right adducotrs Palpation Findings Soft Tissue Tightness,Muscle Guarding,Tenderness Palpation Details tenderness along the pubic bone attachments of the adductors on the right side PT-OP-K Range of Motion Start: 06/11/23 11:36 Freq: Status: Active Protocol: Document 06/11/23 11:30 [facility] (Rec: 06/13/23 09:15 [facility] [id number]) Hip Goniometric Range of Motion Hip ROM Limitations Hip ROM Limitations Soft Tissue Tightness Comments iliopsoas tightness R greater than left with + dylan test on the right PT-OP-Q Treatments Start: 06/11/23 11:36 Freq: Status: Active Protocol: Document 10/01/23 13:45 [facility] (Rec: 10/02/23 13:08 [facility] [id number]) Therapeutic Exercises Supine Exercises lower trunk rotation Reps/Minutes x [address] diaphragmatic breathing Reps/Minutes x 10 reps supine pec stretch Reps/Minutes hold 1 min Comments arms in 90 degrees ER single knee to chest stretch Reps/Minutes hold 30 sec each side iliopsoas stretch in supine in dylan test position Reps/Minutes hold 1-2 minutes Manual Therapy Treatment Soft Tissue Mobilization manual release of the diaphragm Mobilization Type Myofascial Release Comments tightness across the fascial attachments to the rib cage, ivone blanchard tolerates this well Quadratus lumborum release on the right side Mobilization Type Myofascial Release Body Position left sidelying manual quad MFR right side Body Location Right quad MFR Mobilization Type Myofascial Release Comments right sided quad guarding and tightness Manual Techniques manual hamstring and adductor stretch Type manual stretches Reps/Duration hold x 30 sec each Comments supine manual adductor and hamstring stretch B PT-OP-T Assessment and Plan Start: 06/11/23 11:36 Freq: Status: Active Protocol: Document 10/01/23 13:45 [facility] (Rec: 10/02/23 13:08 [facility] [id number]) Physical Therapy Assessment Assessment Summary Assessment Ivone blanchard is able to tolerate more stretches now, she still has the point tenderness in the right lower abdomen that does not seem to change with treatment. I continue to encourage coloscopy Physical Therapy Plan Frequency and Duration Frequency of Treatment 1x/Week Duration of treatment (weeks) 8 Plan of Care Start Date 08/29/23 Plan of Care End Date 10/29/23 Therapeutic Interventions Therapeutic Interventions Home Exercise Program,Manual Therapy,Patient/Caregiver Education,Self-Care/Home Management,Soft Tissue Mobilization,Therapeutic Exercises Next Visit Focus/Plan Next Note Type Treatment Note Next Visit Plan continue to work on seated thoracic extension and pec min stretching
--- NOTE | 2023-10-29 16:00 | PT.OPPOC ---
Physical, Occupational & Speech Therapy At [facility] Current Diagnoses Muscle spasm of back (10/29/23) Pelvic and perineal pain (10/29/23) Other reduced mobility (10/29/23) Visit Care Team Role Provider Type Rikki Foley DO Attending Provider Physician Family Provider Primary Care Provider Referring Provider Specialty: Family Practice Address: [address] [place] [address], [facility] Email: Plan Of Care PT-OP-T Assessment and Plan Start: 06/11/23 11:36 Freq: Status: Active Protocol: Document 10/29/23 14:30 [facility] (Rec: 11/05/23 07:55 [facility] [id number]) Physical Therapy Assessment Goals 3 Impairment guarding, tightness, pain of the adductor attachments to the pubic ramus, pain over the pubic tubercles bilaterally [employer] Manager Goal (LTG) pt presents with SI alignment that that is not being compressed or shifted due to tight muscles and adductors are no longer as tight and short. Pt has negative dylan test on the right Good progress and Irma presented with equal leg length the last couple of visits LTG Duration 12 weeks 2 Impairment upper neck breather with poor excursion of the diaphragm, pt has difficult expanding her belly with breathing and uses her upper neck muscles Short Term Goal (STG) pt is educated on diaphragmatic breathing Irma has been working on her diaphragmatic breathing at home, she is still really limited in fascial mobility at the diaphragm good progress, pt is a smoker so tends to use accessory muscles and needs reminders to use her diaphragm STG Duration 4 weeks pain Impairment pelvic pain rated 7/10 worse with standing activities [facility] Goal (LTG) Ivone Tse has overall decreased c/o pain and a HEP that she can continue with at home to manage her symptoms Some progress as pain is more intermittent now LTG Duration 12 weeks Assessment Summary Assessment ivone Tse is able to tolerate stretches now. I am really encouraging walking and exercise for home. She still experiences point tenderness in the right lower abdomen that does not seem to change with treatment. She does feel she gets relief with manual work and manual stretching. She would like to continue PT Physical Therapy Plan Frequency and Duration Frequency of Treatment 1x/Week Duration of treatment (weeks) 8 Plan of Care Start Date 10/29/23 Plan of Care End Date 12/24/23 Therapeutic Interventions Therapeutic Interventions Home Exercise Program,Manual Therapy,Patient/Caregiver Education,Self-Care/Home Management,Soft Tissue Mobilization,Therapeutic Exercises Next Visit Focus/Plan Next Note Type Treatment Note Next Visit Plan continue to work on seated thoracic extension and pec min stretching Plan of Care Dates Plan of Care Start Date 10/29/23 Plan of Care End Date 12/24/23 Electronically Signed by: Crissy Lees, PT 11/05/23 0757 If you are in agreement with this Plan of Care, please return a signed and dated copy. I have reviewed this Plan of Care and certify that the skilled therapy services above are required to meet the patient?s needs. Physician Signature Date Printed Name and Credentials Clinical Instructor Signature Printed Name and Credentials
--- NOTE | 2023-10-29 16:00 | PT.OTN ---
Current Diagnoses Muscle spasm of back (10/29/23) Pelvic and perineal pain (10/29/23) Other reduced mobility (10/29/23) Physical Therapy Treatment Note PT-OP-A Visit Information Start: 06/11/23 11:36 Freq: Status: Active Protocol: Document 10/29/23 14:33 [facility] (Rec: 10/29/23 15:19 [facility] [id number]) Out-Patient Physical Therapy Visit Information Visit Information Visit Type Progress Note Visit Start Time 14:30 Visit Stop Time 15:15 Total Visit Minutes 45 Visit Number 14 PT-OP-B Current Condition Start: 06/11/23 11:36 Freq: Status: Active Protocol: Document 06/11/23 11:38 [facility] (Rec: 06/11/23 12:12 [facility] [id number]) Current Condition History of Current Condition History of Current Condition pt report ongoing pelvic pain and pain that, she feels a pulling and twisting sensation up to her right shoulder and upper right neck. Pain also extens into her low back region into the anterior pelvis. She describes a pulling and twisting pain PT-OP-C Subjective Start: 06/11/23 11:36 Freq: Status: Active Protocol: Document 10/29/23 14:33 [facility] (Rec: 10/29/23 15:19 [facility] [id number]) OP-PT Subjective Patient Comments Patient Comments Ivone tse notes she feels like she is being help together by strings and her hips and her pelvis feels really tight PT-OP-F Manual Assessment Start: 06/11/23 11:36 Freq: Status: Active Protocol: Document 06/11/23 11:30 [facility] (Rec: 06/13/23 09:17 [facility] [id number]) Manual Assessments Soft Tissue Assessment Soft Tissue Mobility Assessment parapspinal guarding and increased tone throughout the thoracic and cervical spine adductor guarding/contracture R>L iliopsoas tightness R>L suboccipital muscle guarding and tightness Joint Mobility Assessment Joint Mobility Assessment thoracic kyphosis with rounded shoulders and anterior head position, multiple areas of hytomobility throughout the thoracic spine PT-OP-J Posture/Palpation/Skin Start: 06/11/23 11:36 Freq: Status: Active Protocol: Document 06/11/23 11:30 [facility] (Rec: 06/13/23 09:20 [facility] [id number]) Posture Evaluation Comments Posture Comments anterior head, rounded shoulders, thoracic kyphosis, anterior oblique tightness and decreased diaphragmatic excursion, pt breaths with upper neck Palpation Assessment Location iliopsoas R Palpation Findings Soft Tissue Tightness,Spasm, Muscle Guarding,Tenderness suboccitipals Palpation Findings Soft Tissue Tightness,Spasm, Muscle Guarding,Tenderness right adducotrs Palpation Findings Soft Tissue Tightness,Muscle Guarding,Tenderness Palpation Details tenderness along the pubic bone attachments of the adductors on the right side PT-OP-K Range of Motion Start: 06/11/23 11:36 Freq: Status: Active Protocol: Document 06/11/23 11:30 [facility] (Rec: 06/13/23 09:15 [facility] [id number]) Hip Goniometric Range of Motion Hip ROM Limitations Hip ROM Limitations Soft Tissue Tightness Comments iliopsoas tightness R greater than left with + dylan test on the right PT-OP-Q Treatments Start: 06/11/23 11:36 Freq: Status: Active Protocol: Document 10/29/23 14:30 [facility] (Rec: 11/05/23 07:55 [facility] [id number]) Therapeutic Exercises Supine Exercises diaphragmatic breathing Reps/Minutes x 10 reps single knee to chest stretch Reps/Minutes hold 30 sec each side iliopsoas stretch in supine in dylan test position Reps/Minutes hold 1-2 minutes supine ball squeeze Reps/Minutes x 10 reps Manual Therapy Treatment Soft Tissue Mobilization manual release of the diaphragm Mobilization Type Myofascial Release Comments tightness across the fascial attachments to the rib cage, ivone tse tolerates this well manual iliospoas release Comments right side only in dylan test position manual quad MFR right side Body Location Right quad MFR Mobilization Type Myofascial Release Comments right sided quad guarding and tightness Manual Techniques manual hamstring and adductor stretch Type manual stretches Reps/Duration hold x 30 sec each Comments supine manual adductor and hamstring stretch B scalene stretch B Comments hold 1-2 min, left sided scalene tightness today manual pectoralis release B Type MFR/pin and stretch Body Location pec minor Body Position Supine suboccipital release Comments pt very tight and guarded upper cervical spine manual iliopsoas stretch Type Right side Body Position Hooklying Reps/Duration 1 rep holding x 1 min MET for right anterior rotated innominant Body Location right anterior innominant Body Position Hooklying Reps/Duration x 5 reps PT-OP-T Assessment and Plan Start: 06/11/23 11:36 Freq: Status: Active Protocol: Document 10/29/23 14:30 [facility] (Rec: 11/05/23 07:55 [facility] [id number]) Physical Therapy Assessment Goals 3 Impairment guarding, tightness, pain of the adductor attachments to the pubic ramus, pain over the pubic tubercles bilaterally Hydrotel Operator Goal (LTG) pt presents with SI alignnment that that is not being compressed or shifted due to tight muscles and adducors are no longer as tight and short. Pt has negative dylan test on the right Good progress and Irma presented with equal leg length the last couple of visits LTG Duration 12 weeks 2 Impairment upper neck breather with poor excursion of the diaphragm, pt has difficult expanding her belly with breathing and uses her upper neck muscles Short Term Goal (STG) pt is educated on diaphragmatic breathing Irma has been woring on her diaphragmatic breathing at home, she is still really limited in fascial mobility at the diaphragm good progress, pt is a smoker so tends to use accessory muscles and needs reminders to use her diaphragm STG Duration 4 weeks pain Impairment pelvic pain rated 7/10 worse with standing activities [facility] Goal (LTG) Ivone Tse has overall decreased c/o pain and a HEP that she can continue with at home to manage her symptoms Some progress as pain is more intermittent now LTG Duration 12 weeks Assessment Summary Assessment ivone Tse is able to tolerate stretches now. I am really encouraging walking and exercise for home. She still experiences point tendernes in the right lower abdomen that does not seem to change with treatment. She does feel she gets relief with manual work and manual stretching. She would like to continue PT Physical Therapy Plan Frequency and Duration Frequency of Treatment 1x/Week Duration of treatment (weeks) 8 Plan of Care Start Date 10/29/23 Plan of Care End Date 12/24/23 Therapeutic Interventions Therapeutic Interventions Home Exercise Program,Manual Therapy,Patient/Caregiver Education,Self-Care/Home Management,Soft Tissue Mobilization,Therapeutic Exercises Next Visit Focus/Plan Next Note Type Treatment Note Next Visit Plan continue to work on seated thoracic extension and pec min stretching
--- NOTE | 2023-11-13 11:39 | PT.OTN ---
Current Diagnoses Muscle spasm of back (11/13/23) Pelvic and perineal pain (11/13/23) Other reduced mobility (11/13/23) Physical Therapy Treatment Note PT-OP-A Visit Information Start: 06/11/23 11:36 Freq: Status: Active Protocol: Document 11/13/23 10:37 [facility] (Rec: 11/13/23 11:35 [facility] [id number]) Out-Patient Physical Therapy Visit Information Visit Information Visit Type Treatment Note Visit Start Time 10:35 Visit Stop Time 11:20 Total Visit Minutes 45 Visit Number 15 PT-OP-B Current Condition Start: 06/11/23 11:36 Freq: Status: Active Protocol: Document 06/11/23 11:38 [facility] (Rec: 06/11/23 12:12 [facility] [id number]) Current Condition History of Current Condition History of Current Condition pt report ongoing pelvic pain and pain that, she feels a pulling and twisting sensation up to her right shoulder and upper right neck. Pain also extens into her low back region into the anterior pelvis. She describes a pulling and twisting pain PT-OP-C Subjective Start: 06/11/23 11:36 Freq: Status: Active Protocol: Document 11/13/23 10:37 [facility] (Rec: 11/13/23 11:35 [facility] [id number]) OP-PT Subjective Patient Comments Patient Comments Ivone blanchard had a week of diarhea , she still feels the pulling from her pelvis all the way up the right side of her shoulder PT-OP-F Manual Assessment Start: 06/11/23 11:36 Freq: Status: Active Protocol: Document 06/11/23 11:30 [facility] (Rec: 06/13/23 09:17 [facility] [id number]) Manual Assessments Soft Tissue Assessment Soft Tissue Mobility Assessment parapspinal guarding and increased tone throughout the thoracic and cervical spine adductor guarding/contracture R>L iliopsoas tightness R>L suboccipital muscle guarding and tightness Joint Mobility Assessment Joint Mobility Assessment thoracic kyphosis with rounded shoulders and anterior head position, multiple areas of hytomobility throughout the thoracic spine PT-OP-J Posture/Palpation/Skin Start: 06/11/23 11:36 Freq: Status: Active Protocol: Document 06/11/23 11:30 [facility] (Rec: 06/13/23 09:20 [facility] [id number]) Posture Evaluation Comments Posture Comments anterior head, rounded shoulders, thoracic kyphosis, anterior oblique tightness and decreased diaphragmatic excursion, pt breaths with upper neck Palpation Assessment Location iliopsoas R Palpation Findings Soft Tissue Tightness,Spasm, Muscle Guarding,Tenderness suboccitipals Palpation Findings Soft Tissue Tightness,Spasm, Muscle Guarding,Tenderness right adducotrs Palpation Findings Soft Tissue Tightness,Muscle Guarding,Tenderness Palpation Details tenderness along the pubic bone attachments of the adductors on the right side PT-OP-K Range of Motion Start: 06/11/23 11:36 Freq: Status: Active Protocol: Document 06/11/23 11:30 [facility] (Rec: 06/13/23 09:15 [facility] [id number]) Hip Goniometric Range of Motion Hip ROM Limitations Hip ROM Limitations Soft Tissue Tightness Comments iliopsoas tightness R greater than left with + dylan test on the right PT-OP-Q Treatments Start: 06/11/23 11:36 Freq: Status: Active Protocol: Document 11/13/23 10:37 [facility] (Rec: 11/13/23 11:35 [facility] [id number]) Therapeutic Exercises Supine Exercises double knee to chest stretch Reps/Minutes hold 1-2 min diaphragmatic breathing Reps/Minutes x 10 reps supine pec stretch Reps/Minutes hold 1 min Comments arms in 90 degrees ER single knee to chest stretch Reps/Minutes hold 30 sec each side iliopsoas stretch in supine in dylan test position Reps/Minutes hold 1-2 minutes supine ball squeeze Reps/Minutes x 10 reps Manual Therapy Treatment Soft Tissue Mobilization manual release of the diaphragm Mobilization Type Myofascial Release Comments tightness across the fascial attachments to the rib cage, ivone blanchard tolerates this well manual iliospoas release Comments right side only in dylan test position manual quad MFR right side Body Location Right quad MFR Mobilization Type Myofascial Release Comments right sided quad guarding and tightness Manual Techniques manual hamstring and adductor stretch Type manual stretches Reps/Duration hold x 30 sec each Comments supine manual adductor and hamstring stretch B manual pectoralis release B Type MFR/pin and stretch Body Location pec minor Body Position Supine MET for right anterior rotated innominant Body Location right anterior innominant Body Position Hooklying Reps/Duration x 5 reps PT-OP-T Assessment and Plan Start: 06/11/23 11:36 Freq: Status: Active Protocol: Document 11/13/23 10:37 [facility] (Rec: 11/13/23 11:35 [facility] [id number]) Physical Therapy Assessment Assessment Summary Assessment Ivone blanchard is tighter today after having a week with diarrhea. I continue to work on adductor and iliopsoas release and advise working on a walking program as well as her stretches for home as she is very tight. Physical Therapy Plan Frequency and Duration Frequency of Treatment 1x/Week Duration of treatment (weeks) 8 Plan of Care Start Date 10/29/23 Plan of Care End Date 12/24/23 Therapeutic Interventions Therapeutic Interventions Home Exercise Program,Manual Therapy,Patient/Caregiver Education,Self-Care/Home Management,Soft Tissue Mobilization,Therapeutic Exercises Next Visit Focus/Plan Next Note Type Treatment Note Next Visit Plan continue to work on seated thoracic extension and pec min stretching as well as stretches and manual work to release iliopsoas and adductor tightness. Ivone blanchard tolerated well. I encouraged HEP stretches and walking daily.
--- NOTE | 2023-11-28 11:58 | PT.OTN ---
Current Diagnoses Muscle spasm of back (11/28/23) Pelvic and perineal pain (11/28/23) Other reduced mobility (11/28/23) Physical Therapy Treatment Note PT-OP-A Visit Information Start: 06/11/23 11:36 Freq: Status: Active Protocol: Document 11/28/23 11:54 [facility] (Rec: 11/28/23 11:57 [facility] [id number]) Out-Patient Physical Therapy Visit Information Visit Information Visit Type Treatment Note Visit Start Time 11:13 Visit Stop Time 11:50 Total Visit Minutes 38 Visit Number 16 PT-OP-B Current Condition Start: 06/11/23 11:36 Freq: Status: Active Protocol: Document 06/11/23 11:38 [facility] (Rec: 06/11/23 12:12 [facility] [id number]) Current Condition History of Current Condition History of Current Condition pt report ongoing pelvic pain and pain that, she feels a pulling and twisting sensation up to her right shoulder and upper right neck. Pain also extens into her low back region into the anterior pelvis. She describes a pulling and twisting pain PT-OP-C Subjective Start: 06/11/23 11:36 Freq: Status: Active Protocol: Document 11/28/23 11:15 [facility] (Rec: 11/28/23 11:20 [facility] [id number]) OP-PT Subjective Patient Comments Patient Comments notes she has had increased diarhrrea, she is scheduled for a colonoscopy procedure. PT-OP-F Manual Assessment Start: 06/11/23 11:36 Freq: Status: Active Protocol: Document 06/11/23 11:30 [facility] (Rec: 06/13/23 09:17 [facility] [id number]) Manual Assessments Soft Tissue Assessment Soft Tissue Mobility Assessment parapspinal guarding and increased tone throughout the thoracic and cervical spine adductor guarding/contracture R>L iliopsoas tightness R>L suboccipital muscle guarding and tightness Joint Mobility Assessment Joint Mobility Assessment thoracic kyphosis with rounded shoulders and anterior head position, multiple areas of hytomobility throughout the thoracic spine PT-OP-J Posture/Palpation/Skin Start: 06/11/23 11:36 Freq: Status: Active Protocol: Document 06/11/23 11:30 [facility] (Rec: 06/13/23 09:20 [facility] [id number]) Posture Evaluation Comments Posture Comments anterior head, rounded shoulders, thoracic kyphosis, anterior oblique tightness and decreased diaphragmatic excursion, pt breaths with upper neck Palpation Assessment Location iliopsoas R Palpation Findings Soft Tissue Tightness,Spasm, Muscle Guarding,Tenderness suboccitipals Palpation Findings Soft Tissue Tightness,Spasm, Muscle Guarding,Tenderness right adducotrs Palpation Findings Soft Tissue Tightness,Muscle Guarding,Tenderness Palpation Details tenderness along the pubic bone attachments of the adductors on the right side PT-OP-K Range of Motion Start: 06/11/23 11:36 Freq: Status: Active Protocol: Document 06/11/23 11:30 [facility] (Rec: 06/13/23 09:15 [facility] [id number]) Hip Goniometric Range of Motion Hip ROM Limitations Hip ROM Limitations Soft Tissue Tightness Comments iliopsoas tightness R greater than left with + dylan test on the right PT-OP-Q Treatments Start: 06/11/23 11:36 Freq: Status: Active Protocol: Document 11/28/23 11:54 [facility] (Rec: 11/28/23 11:57 [facility] [id number]) Manual Therapy Treatment Soft Tissue Mobilization adductor release on the right side Comments pt is still very tight and guarded in the right adductors manual release of the diaphragm Mobilization Type Myofascial Release Comments tightness across the fascial attachments to the rib cage, ivone blanchard tolerates this well Quadratus lumborum release on the right side Mobilization Type Myofascial Release Body Position left sidelying manual iliospoas release Comments right side only in dylan test position manual quad MFR right side Body Location Right quad MFR Mobilization Type Myofascial Release Comments right sided quad guarding and tightness Manual Techniques long axis extension with distraction Comments hold 30 sec x 2 and pt tolerated well manual hamstring and adductor stretch Type manual stretches Reps/Duration hold x 30 sec each Comments supine manual adductor and hamstring stretch B PT-OP-T Assessment and Plan Start: 06/11/23 11:36 Freq: Status: Active Protocol: Document 11/28/23 11:54 [facility] (Rec: 11/28/23 11:57 [facility] [id number]) Physical Therapy Assessment Assessment Summary Assessment Ivone blanchard continues with diarrhea symptoms. She did go ahead and get scheduled for her colonoscopy and has a pre appt with the doctor next saturday. Physical Therapy Plan Frequency and Duration Frequency of Treatment 1x/Week Duration of treatment (weeks) 8 Plan of Care Start Date 10/29/23 Plan of Care End Date 12/24/23 Therapeutic Interventions Therapeutic Interventions Home Exercise Program,Manual Therapy,Patient/Caregiver Education,Self-Care/Home Management,Soft Tissue Mobilization,Therapeutic Exercises Next Visit Focus/Plan Next Note Type Treatment Note Next Visit Plan continue to work on seated thoracic extension and pec min stretching as well as stretches and manual work to release iliopsoas and adductor tightness. Ivone blanchard tolerated well. I encouraged HEP stretches and walking daily.
--- NOTE | 2023-12-12 12:51 | PT.OTN ---
Current Diagnoses Muscle spasm of back (12/12/23) Pelvic and perineal pain (12/12/23) Other reduced mobility (12/12/23) Physical Therapy Treatment Note PT-OP-A Visit Information Start: 06/11/23 11:36 Freq: Status: Active Protocol: Document 12/12/23 10:36 [facility] (Rec: 12/12/23 10:38 [facility] [id number]) Out-Patient Physical Therapy Visit Information Visit Information Visit Type Progress Note Visit Start Time 10:34 Visit Stop Time 11:15 Visit Number 17 PT-OP-B Current Condition Start: 06/11/23 11:36 Freq: Status: Active Protocol: Document 06/11/23 11:38 [facility] (Rec: 06/11/23 12:12 [facility] [id number]) Current Condition History of Current Condition History of Current Condition pt report ongoing pelvic pain and pain that, she feels a pulling and twisting sensation up to her right shoulder and upper right neck. Pain also extens into her low back region into the anterior pelvis. She describes a pulling and twisting pain PT-OP-C Subjective Start: 06/11/23 11:36 Freq: Status: Active Protocol: Document 12/12/23 10:36 [facility] (Rec: 12/12/23 10:38 [facility] [id number]) OP-PT Subjective Patient Comments Patient Comments pt reports she has a endoscopy as well as colonoscopy scheduled for 01/15/24 PT-OP-F Manual Assessment Start: 06/11/23 11:36 Freq: Status: Active Protocol: Document 06/11/23 11:30 [facility] (Rec: 06/13/23 09:17 [facility] [id number]) Manual Assessments Soft Tissue Assessment Soft Tissue Mobility Assessment parapspinal guarding and increased tone throughout the thoracic and cervical spine adductor guarding/contracture R>L iliopsoas tightness R>L suboccipital muscle guarding and tightness Joint Mobility Assessment Joint Mobility Assessment thoracic kyphosis with rounded shoulders and anterior head position, multiple areas of hytomobility throughout the thoracic spine PT-OP-J Posture/Palpation/Skin Start: 06/11/23 11:36 Freq: Status: Active Protocol: Document 06/11/23 11:30 [facility] (Rec: 06/13/23 09:20 [facility] [id number]) Posture Evaluation Comments Posture Comments anterior head, rounded shoulders, thoracic kyphosis, anterior oblique tightness and decreased diaphragmatic excursion, pt breaths with upper neck Palpation Assessment Location iliopsoas R Palpation Findings Soft Tissue Tightness,Spasm, Muscle Guarding,Tenderness suboccitipals Palpation Findings Soft Tissue Tightness,Spasm, Muscle Guarding,Tenderness right adducotrs Palpation Findings Soft Tissue Tightness,Muscle Guarding,Tenderness Palpation Details tenderness along the pubic bone attachments of the adductors on the right side PT-OP-K Range of Motion Start: 06/11/23 11:36 Freq: Status: Active Protocol: Document 06/11/23 11:30 [facility] (Rec: 06/13/23 09:15 [facility] [id number]) Hip Goniometric Range of Motion Hip ROM Limitations Hip ROM Limitations Soft Tissue Tightness Comments iliopsoas tightness R greater than left with + dylan test on the right PT-OP-Q Treatments Start: 06/11/23 11:36 Freq: Status: Active Protocol: Document 12/12/23 10:34 [facility] (Rec: 12/12/23 12:51 [facility] [id number]) Manual Therapy Treatment Soft Tissue Mobilization adductor release on the right side Comments pt is still very tight and guarded in the right adductors manual release of the diaphragm Mobilization Type Myofascial Release Comments tightness across the fascial attachments to the rib cage, ivone tse tolerates this well manual quad MFR right side Body Location Right quad MFR Mobilization Type Myofascial Release Comments right sided quad guarding and tightness Manual Techniques long axis extension with distraction Body Position Supine manual hamstring and adductor stretch Type manual stretches Reps/Duration hold x 30 sec each Comments supine manual adductor and hamstring stretch irma Ortiz did not tolerate well on the right side today manual pectoralis release B Type MFR/pin and stretch Body Location pec minor Body Position Supine manual iliopsoas stretch Type Right side Body Position Hooklying Reps/Duration 1 rep holding x 1 min PT-OP-T Assessment and Plan Start: 06/11/23 11:36 Freq: Status: Active Protocol: Document 12/12/23 10:36 [facility] (Rec: 12/12/23 10:38 [facility] [id number]) Physical Therapy Assessment Goals 3 Impairment guarding, tightness, pain of the adductor attachments to the pubic ramus, pain over the pubic tubercles bilaterally Etymology Teacher Goal (LTG) pt presents with SI alignnment that that is not being compressed or shifted due to tight muscles and adducors are no longer as tight and short. Pt has negative dylan test on the right Good progress and Irma presented with equal leg length the last couple of visits LTG Duration 12 weeks 2 Impairment upper neck breather with poor excursion of the diaphragm, pt has difficult expanding her belly with breathing and uses her upper neck muscles Short Term Goal (STG) pt is educated on diaphragmatic breathing Irma has been woring on her diaphragmatic breathing at home, she is still really limited in fascial mobility at the diaphragm good progress, pt is a smoker so tends to use accessory muscles and needs reminders to use her diaphragm STG Duration 4 weeks pain Impairment pelvic pain rated 7/10 worse with standing activities Fpc Goal (LTG) Ivone Tse has overall decreased c/o pain and a HEP that she can continue with at home to manage her symptoms Some progress as pain is more intermittent now LTG Duration 12 weeks Assessment Summary Assessment Ivone Tse is no longer c/o diarrhea symptoms as she has decreased her magnesium. She is still feeling the pulling sensation worse on the right side and wrapping into the abdominal wall. She is now scheduled for a colonoscopy the end of December. Irma does gain some relief with manual PT visits and would like to continue PT. She is working on her home stretching program as well. Physical Therapy Plan Frequency and Duration Frequency of Treatment 1x/Week Duration of treatment (weeks) 8 Plan of Care Start Date 12/12/23 Plan of Care End Date 02/06/24 Therapeutic Interventions Therapeutic Interventions Home Exercise Program,Manual Therapy,Patient/Caregiver Education,Self-Care/Home Management,Soft Tissue Mobilization,Therapeutic Exercises Next Visit Focus/Plan Next Note Type Treatment Note Next Visit Plan continue to work on opening up the pecs, diaphraghm and abdominal fascia as well as LE stretches and manual release
--- NOTE | 2023-12-12 12:52 | PT.OPPOC ---
Physical, Occupational & Speech Therapy At [facility] Current Diagnoses Muscle spasm of back (12/12/23) Pelvic and perineal pain (12/12/23) Other reduced mobility (12/12/23) Visit Care Team Role Provider Type Rikki Foley DO Attending Provider Physician Family Provider Primary Care Provider Referring Provider Specialty: Family Practice Address: [address] [place] [address], [facility] Email: Plan Of Care PT-OP-T Assessment and Plan Start: 06/11/23 11:36 Freq: Status: Active Protocol: Document 12/12/23 10:36 [facility] (Rec: 12/12/23 10:38 [facility] [id number]) Physical Therapy Assessment Goals 3 Impairment guarding, tightness, pain of the adductor attachments to the pubic ramus, pain over the pubic tubercles bilaterally Radioisotope Production Operator Goal (LTG) pt presents with SI alignment that that is not being compressed or shifted due to tight muscles and adductors are no longer as tight and short. Pt has negative dylan test on the right Good progress and Irma presented with equal leg length the last couple of visits LTG Duration 12 weeks 2 Impairment upper neck breather with poor excursion of the diaphragm, pt has difficult expanding her belly with breathing and uses her upper neck muscles Short Term Goal (STG) pt is educated on diaphragmatic breathing Irma has been working on her diaphragmatic breathing at home, she is still really limited in fascial mobility at the diaphragm good progress, pt is a smoker so tends to use accessory muscles and needs reminders to use her diaphragm STG Duration 4 weeks pain Impairment pelvic pain rated 7/10 worse with standing activities Alf Goal (LTG) Jacqueline Tse has overall decreased c/o pain and a HEP that she can continue with at home to manage her symptoms Some progress as pain is more intermittent now LTG Duration 12 weeks Assessment Summary Assessment Jacqueline Tse is no longer c/o diarrhea symptoms as she has decreased her magnesium. She is still feeling the pulling sensation worse on the right side and wrapping into the abdominal wall. She is now scheduled for a colonoscopy the end of December. Irma does gain some relief with manual PT visits and would like to continue PT. She is working on her home stretching program as well. Physical Therapy Plan Frequency and Duration Frequency of Treatment 1x/Week Duration of treatment (weeks) 8 Plan of Care Start Date 12/12/23 Plan of Care End Date 02/06/24 Therapeutic Interventions Therapeutic Interventions Home Exercise Program,Manual Therapy,Patient/Caregiver Education,Self-Care/Home Management,Soft Tissue Mobilization,Therapeutic Exercises Next Visit Focus/Plan Next Note Type Treatment Note Next Visit Plan continue to work on opening up the pecs, diaphragm and abdominal fascia as well as LE stretches and manual release Plan of Care Dates Plan of Care Start Date 12/12/23 Plan of Care End Date 02/06/24 Electronically Signed by: Crissy Lees, PT 12/12/23 0038 If you are in agreement with this Plan of Care, please return a signed and dated copy. I have reviewed this Plan of Care and certify that the skilled therapy services above are required to meet the patient?s needs. Physician Signature Date Printed Name and Credentials Clinical Instructor Signature Printed Name and Credentials
--- NOTE | 2023-12-19 12:56 | PT.OTN ---
Current Diagnoses Muscle spasm of back (12/19/23) Pelvic and perineal pain (12/19/23) Other reduced mobility (12/19/23) Physical Therapy Treatment Note PT-OP-A Visit Information Start: 06/11/23 11:36 Freq: Status: Active Protocol: Document 12/19/23 10:36 [facility] (Rec: 12/19/23 11:19 [facility] [id number]) Out-Patient Physical Therapy Visit Information Visit Information Visit Type Treatment Note Visit Start Time 10:35 Visit Stop Time 11:15 Visit Number 18 PT-OP-B Current Condition Start: 06/11/23 11:36 Freq: Status: Active Protocol: Document 06/11/23 11:38 [facility] (Rec: 06/11/23 12:12 [facility] [id number]) Current Condition History of Current Condition History of Current Condition pt report ongoing pelvic pain and pain that, she feels a pulling and twisting sensation up to her right shoulder and upper right neck. Pain also extens into her low back region into the anterior pelvis. She describes a pulling and twisting pain PT-OP-C Subjective Start: 06/11/23 11:36 Freq: Status: Active Protocol: Document 12/19/23 10:36 [facility] (Rec: 12/19/23 11:19 [facility] [id number]) OP-PT Subjective Patient Comments Patient Comments pt notes she is really worried with all the pulling and twisting PT-OP-F Manual Assessment Start: 06/11/23 11:36 Freq: Status: Active Protocol: Document 06/11/23 11:30 [facility] (Rec: 06/13/23 09:17 [facility] [id number]) Manual Assessments Soft Tissue Assessment Soft Tissue Mobility Assessment parapspinal guarding and increased tone throughout the thoracic and cervical spine adductor guarding/contracture R>L iliopsoas tightness R>L suboccipital muscle guarding and tightness Joint Mobility Assessment Joint Mobility Assessment thoracic kyphosis with rounded shoulders and anterior head position, multiple areas of hytomobility throughout the thoracic spine PT-OP-J Posture/Palpation/Skin Start: 06/11/23 11:36 Freq: Status: Active Protocol: Document 06/11/23 11:30 [facility] (Rec: 06/13/23 09:20 [facility] [id number]) Posture Evaluation Comments Posture Comments anterior head, rounded shoulders, thoracic kyphosis, anterior oblique tightness and decreased diaphragmatic excursion, pt breaths with upper neck Palpation Assessment Location iliopsoas R Palpation Findings Soft Tissue Tightness,Spasm, Muscle Guarding,Tenderness suboccitipals Palpation Findings Soft Tissue Tightness,Spasm, Muscle Guarding,Tenderness right adducotrs Palpation Findings Soft Tissue Tightness,Muscle Guarding,Tenderness Palpation Details tenderness along the pubic bone attachments of the adductors on the right side PT-OP-K Range of Motion Start: 06/11/23 11:36 Freq: Status: Active Protocol: Document 06/11/23 11:30 [facility] (Rec: 06/13/23 09:15 [facility] [id number]) Hip Goniometric Range of Motion Hip ROM Limitations Hip ROM Limitations Soft Tissue Tightness Comments iliopsoas tightness R greater than left with + dylan test on the right PT-OP-Q Treatments Start: 06/11/23 11:36 Freq: Status: Active Protocol: Document 12/19/23 12:54 [facility] (Rec: 12/19/23 12:56 [facility] [id number]) Manual Therapy Treatment Soft Tissue Mobilization adductor release on the right side Comments pt is still very tight and guarded in the right adductors manual release of the diaphragm Mobilization Type Myofascial Release Comments tightness across the fascial attachments to the rib cage, ivone blanchard tolerates this well manual iliospoas release Comments right side only in dylan test position manual quad MFR right side Body Location Right quad MFR Mobilization Type Myofascial Release Comments right sided quad guarding and tightness Manual Techniques manual hamstring and adductor stretch Type manual stretches Reps/Duration hold x 30 sec each Comments supine manual adductor and hamstring stretch B, better toleration of stretches today PT-OP-T Assessment and Plan Start: 06/11/23 11:36 Freq: Status: Active Protocol: Document 12/19/23 12:54 [facility] (Rec: 12/19/23 12:56 [facility] [id number]) Physical Therapy Assessment Assessment Summary Assessment Pt is continuing to feel the pulling sensation on the right side of the abdominal wall up to her sternum and right shoulder. She is tender at the iliocecal valve. She is scheduled for both a endoscopy as well as colonoscopy the end of this month Physical Therapy Plan Frequency and Duration Frequency of Treatment 1x/Week Duration of treatment (weeks) 8 Plan of Care Start Date 12/12/23 Plan of Care End Date 02/06/24 Therapeutic Interventions Therapeutic Interventions Home Exercise Program,Manual Therapy,Patient/Caregiver Education,Self-Care/Home Management,Soft Tissue Mobilization,Therapeutic Exercises Next Visit Focus/Plan Next Note Type Treatment Note Next Visit Plan continue to work on opening up the pecs, diaphraghm and abdominal fascia as well as LE stretches and manual release
--- NOTE | 2023-12-26 13:55 | PT.OTN ---
Current Diagnoses Muscle spasm of back (12/26/23) Pelvic and perineal pain (12/26/23) Other reduced mobility (12/26/23) Physical Therapy Treatment Note PT-OP-A Visit Information Start: 06/11/23 11:36 Freq: Status: Active Protocol: Document 12/26/23 10:38 [facility] (Rec: 12/26/23 11:20 [facility] [id number]) Out-Patient Physical Therapy Visit Information Visit Information Visit Type Treatment Note PT-OP-B Current Condition Start: 06/11/23 11:36 Freq: Status: Active Protocol: Document 06/11/23 11:38 [facility] (Rec: 06/11/23 12:12 [facility] [id number]) Current Condition History of Current Condition History of Current Condition pt report ongoing pelvic pain and pain that, she feels a pulling and twisting sensation up to her right shoulder and upper right neck. Pain also extens into her low back region into the anterior pelvis. She describes a pulling and twisting pain PT-OP-C Subjective Start: 06/11/23 11:36 Freq: Status: Active Protocol: Document 12/26/23 10:38 [facility] (Rec: 12/26/23 11:20 [facility] [id number]) OP-PT Subjective Patient Comments Patient Comments pt reports she feels really knotted up and now she feels progressed to the left side. She gets relief for a few days after her treatments PT-OP-F Manual Assessment Start: 06/11/23 11:36 Freq: Status: Active Protocol: Document 06/11/23 11:30 [facility] (Rec: 06/13/23 09:17 [facility] [id number]) Manual Assessments Soft Tissue Assessment Soft Tissue Mobility Assessment parapspinal guarding and increased tone throughout the thoracic and cervical spine adductor guarding/contracture R>L iliopsoas tightness R>L suboccipital muscle guarding and tightness Joint Mobility Assessment Joint Mobility Assessment thoracic kyphosis with rounded shoulders and anterior head position, multiple areas of hytomobility throughout the thoracic spine PT-OP-J Posture/Palpation/Skin Start: 06/11/23 11:36 Freq: Status: Active Protocol: Document 06/11/23 11:30 [facility] (Rec: 06/13/23 09:20 [facility] [id number]) Posture Evaluation Comments Posture Comments anterior head, rounded shoulders, thoracic kyphosis, anterior oblique tightness and decreased diaphragmatic excursion, pt breaths with upper neck Palpation Assessment Location iliopsoas R Palpation Findings Soft Tissue Tightness,Spasm, Muscle Guarding,Tenderness suboccitipals Palpation Findings Soft Tissue Tightness,Spasm, Muscle Guarding,Tenderness right adducotrs Palpation Findings Soft Tissue Tightness,Muscle Guarding,Tenderness Palpation Details tenderness along the pubic bone attachments of the adductors on the right side PT-OP-K Range of Motion Start: 06/11/23 11:36 Freq: Status: Active Protocol: Document 06/11/23 11:30 [facility] (Rec: 06/13/23 09:15 [facility] [id number]) Hip Goniometric Range of Motion Hip ROM Limitations Hip ROM Limitations Soft Tissue Tightness Comments iliopsoas tightness R greater than left with + dylan test on the right PT-OP-Q Treatments Start: 06/11/23 11:36 Freq: Status: Active Protocol: Document 12/26/23 13:04 [facility] (Rec: 12/26/23 13:06 [facility] [id number]) Manual Therapy Treatment Soft Tissue Mobilization adductor release on the right side Comments pt is still very tight and guarded in the right adductors manual release of the diaphragm Mobilization Type Myofascial Release Comments tightness across the fascial attachments to the rib cage, ivone tse tolerates this well manual iliospoas release Comments right side only in dylan test position manual quad MFR right side Body Location Right quad MFR Mobilization Type Myofascial Release Comments right sided quad guarding and tightness PT-OP-T Assessment and Plan Start: 06/11/23 11:36 Freq: Status: Active Protocol: Document 12/26/23 13:04 [facility] (Rec: 12/26/23 13:06 [facility] [id number]) Physical Therapy Assessment Assessment Summary Assessment Ivone Tse notes she gets temporary relief with PT but it is enough to h
--- NOTE | 2024-01-02 16:50 | PT.OTN ---
Current Diagnoses Muscle spasm of back (01/02/24) Pelvic and perineal pain (01/02/24) Other reduced mobility (01/02/24) Physical Therapy Treatment Note PT-OP-A Visit Information Start: 06/11/23 11:36 Freq: Status: Active Protocol: Document 01/02/24 09:50 [facility] (Rec: 01/02/24 10:33 [facility] [id number]) Out-Patient Physical Therapy Visit Information Visit Information Visit Type Treatment Note Visit Start Time 09:45 Visit Stop Time 10:30 Visit Number 20 PT-OP-B Current Condition Start: 06/11/23 11:36 Freq: Status: Active Protocol: Document 06/11/23 11:38 [facility] (Rec: 06/11/23 12:12 [facility] [id number]) Current Condition History of Current Condition History of Current Condition pt report ongoing pelvic pain and pain that, she feels a pulling and twisting sensation up to her right shoulder and upper right neck. Pain also extens into her low back region into the anterior pelvis. She describes a pulling and twisting pain PT-OP-C Subjective Start: 06/11/23 11:36 Freq: Status: Active Protocol: Document 01/02/24 16:47 [facility] (Rec: 01/02/24 16:49 [facility] [id number]) OP-PT Subjective Patient Comments Patient Comments pt notes she is still feeling the pulling pain and it is worse on the right side of her abdomen, she does get some relief after PT for a few days PT-OP-F Manual Assessment Start: 06/11/23 11:36 Freq: Status: Active Protocol: Document 06/11/23 11:30 [facility] (Rec: 06/13/23 09:17 [facility] [id number]) Manual Assessments Soft Tissue Assessment Soft Tissue Mobility Assessment parapspinal guarding and increased tone throughout the thoracic and cervical spine adductor guarding/contracture R>L iliopsoas tightness R>L suboccipital muscle guarding and tightness Joint Mobility Assessment Joint Mobility Assessment thoracic kyphosis with rounded shoulders and anterior head position, multiple areas of hytomobility throughout the thoracic spine PT-OP-J Posture/Palpation/Skin Start: 06/11/23 11:36 Freq: Status: Active Protocol: Document 06/11/23 11:30 [facility] (Rec: 06/13/23 09:20 [facility] [id number]) Posture Evaluation Comments Posture Comments anterior head, rounded shoulders, thoracic kyphosis, anterior oblique tightness and decreased diaphragmatic excursion, pt breaths with upper neck Palpation Assessment Location iliopsoas R Palpation Findings Soft Tissue Tightness,Spasm, Muscle Guarding,Tenderness suboccitipals Palpation Findings Soft Tissue Tightness,Spasm, Muscle Guarding,Tenderness right adducotrs Palpation Findings Soft Tissue Tightness,Muscle Guarding,Tenderness Palpation Details tenderness along the pubic bone attachments of the adductors on the right side PT-OP-K Range of Motion Start: 06/11/23 11:36 Freq: Status: Active Protocol: Document 06/11/23 11:30 [facility] (Rec: 06/13/23 09:15 [facility] [id number]) Hip Goniometric Range of Motion Hip ROM Limitations Hip ROM Limitations Soft Tissue Tightness Comments iliopsoas tightness R greater than left with + dylan test on the right PT-OP-Q Treatments Start: 06/11/23 11:36 Freq: Status: Active Protocol: Document 01/02/24 16:47 [facility] (Rec: 01/02/24 16:49 [facility] [id number]) Manual Therapy Treatment Soft Tissue Mobilization adductor release on the right side Comments pt is still very tight and guarded in the right adductors , she was able to finally relax with manual therapy tx manual release of the diaphragm Mobilization Type Myofascial Release Comments tightness across the fascial attachments to the rib cage, ivone blanchard tolerates this well manual iliospoas release Comments right side only in dylan test position manual quad MFR right side Body Location Right quad MFR Mobilization Type Myofascial Release Comments right sided quad guarding and tightness Manual Techniques manual hamstring and adductor stretch Type manual stretches Reps/Duration hold x 30 sec each Comments supine manual adductor and hamstring stretch B, better toleration of stretches today manual pectoralis release B Type MFR/pin and stretch Body Location pec minor Body Position Supine PT-OP-T Assessment and Plan Start: 06/11/23 11:36 Freq: Status: Active Protocol: Document 01/02/24 09:50 [facility] (Rec: 01/02/24 10:33 [facility] [id number]) Physical Therapy Assessment Assessment Summary Assessment Ivone blanchard is getting temporary relief only with treatments. She has her colonoscopy the end of this month Physical Therapy Plan Frequency and Duration Frequency of Treatment 1x/Week Duration of treatment (weeks) 8 Plan of Care Start Date 12/12/23 Plan of Care End Date 02/06/24
--- NOTE | 2024-01-08 12:27 | PT.OTN ---
Current Diagnoses Muscle spasm of back (01/08/24) Pelvic and perineal pain (01/08/24) Other reduced mobility (01/08/24) Physical Therapy Treatment Note PT-OP-A Visit Information Start: 06/11/23 11:36 Freq: Status: Active Protocol: Document 01/08/24 09:53 [facility] (Rec: 01/08/24 10:30 [facility] [id number]) Out-Patient Physical Therapy Visit Information Visit Information Visit Type Treatment Note Visit Start Time 09:50 Visit Stop Time 10:30 Visit Number 21 PT-OP-B Current Condition Start: 06/11/23 11:36 Freq: Status: Active Protocol: Document 06/11/23 11:38 [facility] (Rec: 06/11/23 12:12 [facility] [id number]) Current Condition History of Current Condition History of Current Condition pt report ongoing pelvic pain and pain that, she feels a pulling and twisting sensation up to her right shoulder and upper right neck. Pain also extens into her low back region into the anterior pelvis. She describes a pulling and twisting pain PT-OP-C Subjective Start: 06/11/23 11:36 Freq: Status: Active Protocol: Document 01/08/24 10:35 [facility] (Rec: 01/08/24 10:38 [facility] [id number]) OP-PT Subjective Patient Comments Patient Comments Ivone su notes she is having the same symptoms with the pulling and twisting in her colon. Her colonoscopy is scheduled next saturday PT-OP-F Manual Assessment Start: 06/11/23 11:36 Freq: Status: Active Protocol: Document 06/11/23 11:30 [facility] (Rec: 06/13/23 09:17 [facility] [id number]) Manual Assessments Soft Tissue Assessment Soft Tissue Mobility Assessment parapspinal guarding and increased tone throughout the thoracic and cervical spine adductor guarding/contracture R>L iliopsoas tightness R>L suboccipital muscle guarding and tightness Joint Mobility Assessment Joint Mobility Assessment thoracic kyphosis with rounded shoulders and anterior head position, multiple areas of hytomobility throughout the thoracic spine PT-OP-J Posture/Palpation/Skin Start: 06/11/23 11:36 Freq: Status: Active Protocol: Document 06/11/23 11:30 [facility] (Rec: 06/13/23 09:20 [facility] [id number]) Posture Evaluation Comments Posture Comments anterior head, rounded shoulders, thoracic kyphosis, anterior oblique tightness and decreased diaphragmatic excursion, pt breaths with upper neck Palpation Assessment Location iliopsoas R Palpation Findings Soft Tissue Tightness,Spasm, Muscle Guarding,Tenderness suboccitipals Palpation Findings Soft Tissue Tightness,Spasm, Muscle Guarding,Tenderness right adducotrs Palpation Findings Soft Tissue Tightness,Muscle Guarding,Tenderness Palpation Details tenderness along the pubic bone attachments of the adductors on the right side PT-OP-K Range of Motion Start: 06/11/23 11:36 Freq: Status: Active Protocol: Document 06/11/23 11:30 [facility] (Rec: 06/13/23 09:15 [facility] [id number]) Hip Goniometric Range of Motion Hip ROM Limitations Hip ROM Limitations Soft Tissue Tightness Comments iliopsoas tightness R greater than left with + dylan test on the right PT-OP-Q Treatments Start: 06/11/23 11:36 Freq: Status: Active Protocol: Document 01/08/24 09:45 [facility] (Rec: 01/08/24 12:26 [facility] [id number]) Manual Therapy Treatment Soft Tissue Mobilization adductor release on the right side Comments Ivone blanchard was not as tight today in the adductors manual release of the diaphragm Mobilization Type Myofascial Release Comments tightness across the fascial attachments to the rib cage, ivone blanchard tolerates this well manual iliospoas release Comments right side only in dylan test position Manual Techniques scalene stretch B Comments hold 1-2 min, left sided scalene tightness today manual pectoralis release B Type MFR/pin and stretch Body Location pec minor Body Position Supine suboccipital release Comments pt very tight and guarded upper cervical spine PT-OP-T Assessment and Plan Start: 06/11/23 11:36 Freq: Status: Active Protocol: Document 01/08/24 09:45 [facility] (Rec: 01/08/24 12:26 [facility] [id number]) Physical Therapy Assessment Assessment Summary Assessment Ivone blanchard continues getting temporary relief only. She will under go her colonoscopy this next week. Physical Therapy Plan Frequency and Duration Frequency of Treatment 1x/Week Duration of treatment (weeks) 8 Plan of Care Start Date 12/12/23 Plan of Care End Date 02/06/24 Therapeutic Interventions Therapeutic Interventions Home Exercise Program,Manual Therapy,Patient/Caregiver Education,Self-Care/Home Management,Soft Tissue Mobilization,Therapeutic Exercises Next Visit Focus/Plan Next Note Type Treatment Note Next Visit Plan continue to work on opening up the pecs, diaphraghm and abdominal fascia as well as LE stretches and manual release
--- NOTE | 2024-01-23 13:48 | PT.OTN ---
Current Diagnoses Muscle spasm of back (01/23/24) Pelvic and perineal pain (01/23/24) Other reduced mobility (01/23/24) Physical Therapy Treatment Note PT-OP-A Visit Information Start: 06/11/23 11:36 Freq: Status: Active Protocol: Document 01/23/24 13:07 [facility] (Rec: 01/23/24 13:48 [facility] [id number]) Out-Patient Physical Therapy Visit Information Visit Information Visit Type Treatment Note Visit Start Time 13:00 Visit Stop Time 13:45 Visit Number 22 PT-OP-B Current Condition Start: 06/11/23 11:36 Freq: Status: Active Protocol: Document 06/11/23 11:38 [facility] (Rec: 06/11/23 12:12 [facility] [id number]) Current Condition History of Current Condition History of Current Condition pt report ongoing pelvic pain and pain that, she feels a pulling and twisting sensation up to her right shoulder and upper right neck. Pain also extens into her low back region into the anterior pelvis. She describes a pulling and twisting pain PT-OP-C Subjective Start: 06/11/23 11:36 Freq: Status: Active Protocol: Document 01/23/24 13:07 [facility] (Rec: 01/23/24 13:48 [facility] [id number]) OP-PT Subjective Patient Comments Patient Comments pt had her colonoscopy and is starting with a high fiber diet. She also had a CT scan but has not gotten her results back yet PT-OP-F Manual Assessment Start: 06/11/23 11:36 Freq: Status: Active Protocol: Document 06/11/23 11:30 [facility] (Rec: 06/13/23 09:17 [facility] [id number]) Manual Assessments Soft Tissue Assessment Soft Tissue Mobility Assessment parapspinal guarding and increased tone throughout the thoracic and cervical spine adductor guarding/contracture R>L iliopsoas tightness R>L suboccipital muscle guarding and tightness Joint Mobility Assessment Joint Mobility Assessment thoracic kyphosis with rounded shoulders and anterior head position, multiple areas of hytomobility throughout the thoracic spine PT-OP-J Posture/Palpation/Skin Start: 06/11/23 11:36 Freq: Status: Active Protocol: Document 06/11/23 11:30 [facility] (Rec: 06/13/23 09:20 [facility] [id number]) Posture Evaluation Comments Posture Comments anterior head, rounded shoulders, thoracic kyphosis, anterior oblique tightness and decreased diaphragmatic excursion, pt breaths with upper neck Palpation Assessment Location iliopsoas R Palpation Findings Soft Tissue Tightness,Spasm, Muscle Guarding,Tenderness suboccitipals Palpation Findings Soft Tissue Tightness,Spasm, Muscle Guarding,Tenderness right adducotrs Palpation Findings Soft Tissue Tightness,Muscle Guarding,Tenderness Palpation Details tenderness along the pubic bone attachments of the adductors on the right side PT-OP-K Range of Motion Start: 06/11/23 11:36 Freq: Status: Active Protocol: Document 06/11/23 11:30 [facility] (Rec: 06/13/23 09:15 [facility] [id number]) Hip Goniometric Range of Motion Hip ROM Limitations Hip ROM Limitations Soft Tissue Tightness Comments iliopsoas tightness R greater than left with + dylan test on the right PT-OP-Q Treatments Start: 06/11/23 11:36 Freq: Status: Active Protocol: Document 01/23/24 13:07 [facility] (Rec: 01/23/24 13:48 [facility] [id number]) Therapeutic Exercises Supine Exercises lower trunk rotation Reps/Minutes x [address] double knee to chest stretch Reps/Minutes hold 1-2 min supine pec stretch Reps/Minutes hold 1 min Comments arms in 90 degrees ER Manual Therapy Treatment Soft Tissue Mobilization adductor release on the right side Comments Ivone blanchard was not as tight today in the adductors manual release of the diaphragm Mobilization Type Myofascial Release Comments tightness across the fascial attachments to the rib cage, ivone blanchard tolerates this well manual iliospoas release Comments right side only in dylan test position manual quad MFR right side Body Location Right quad MFR Mobilization Type Myofascial Release Comments right sided quad guarding and tightness PT-OP-T Assessment and Plan Start: 06/11/23 11:36 Freq: Status: Active Protocol: Document 01/23/24 13:07 [facility] (Rec: 01/23/24 13:48 [facility] [id number]) Physical Therapy Assessment Assessment Summary Assessment Ivone blanchard continues to have the right sided abdominal pulling . We are awaiting CT scan results Physical Therapy Plan Frequency and Duration Frequency of Treatment 1x/Week Duration of treatment (weeks) 8 Plan of Care Start Date 12/12/23 Plan of Care End Date 02/06/24 Next Visit Focus/Plan Next Note Type Treatment Note Next Visit Plan continue to work on opening up the pecs, diaphraghm and abdominal fascia as well as LE stretches and manual release
--- NOTE | 2024-01-30 12:47 | PT.OTN ---
Current Diagnoses Muscle spasm of back (01/30/24) Pelvic and perineal pain (01/30/24) Other reduced mobility (01/30/24) Physical Therapy Treatment Note PT-OP-A Visit Information Start: 06/11/23 11:36 Freq: Status: Active Protocol: Document 01/30/24 16:29 [facility] (Rec: 01/30/24 16:30 [facility] [id number]) Out-Patient Physical Therapy Visit Information Visit Information Visit Type Treatment Note Visit Start Time 13:50 Visit Stop Time 14:30 Visit Number 23 PT-OP-B Current Condition Start: 06/11/23 11:36 Freq: Status: Active Protocol: Document 06/11/23 11:38 [facility] (Rec: 06/11/23 12:12 [facility] [id number]) Current Condition History of Current Condition History of Current Condition pt report ongoing pelvic pain and pain that, she feels a pulling and twisting sensation up to her right shoulder and upper right neck. Pain also extens into her low back region into the anterior pelvis. She describes a pulling and twisting pain PT-OP-C Subjective Start: 06/11/23 11:36 Freq: Status: Active Protocol: Document 01/30/24 13:45 [facility] (Rec: 02/05/24 12:47 [facility] [id number]) OP-PT Subjective Patient Comments Patient Comments Ivone tse continues to report abdominal tightness and pulling that seems to move from the right side of her pelvis upward Patient Reported Progress Same PT-OP-F Manual Assessment Start: 06/11/23 11:36 Freq: Status: Active Protocol: Document 06/11/23 11:30 [facility] (Rec: 06/13/23 09:17 [facility] [id number]) Manual Assessments Soft Tissue Assessment Soft Tissue Mobility Assessment parapspinal guarding and increased tone throughout the thoracic and cervical spine adductor guarding/contracture R>L iliopsoas tightness R>L suboccipital muscle guarding and tightness Joint Mobility Assessment Joint Mobility Assessment thoracic kyphosis with rounded shoulders and anterior head position, multiple areas of hytomobility throughout the thoracic spine PT-OP-J Posture/Palpation/Skin Start: 06/11/23 11:36 Freq: Status: Active Protocol: Document 06/11/23 11:30 [facility] (Rec: 06/13/23 09:20 [facility] [id number]) Posture Evaluation Comments Posture Comments anterior head, rounded shoulders, thoracic kyphosis, anterior oblique tightness and decreased diaphragmatic excursion, pt breaths with upper neck Palpation Assessment Location iliopsoas R Palpation Findings Soft Tissue Tightness,Spasm, Muscle Guarding,Tenderness suboccitipals Palpation Findings Soft Tissue Tightness,Spasm, Muscle Guarding,Tenderness right adducotrs Palpation Findings Soft Tissue Tightness,Muscle Guarding,Tenderness Palpation Details tenderness along the pubic bone attachments of the adductors on the right side PT-OP-K Range of Motion Start: 06/11/23 11:36 Freq: Status: Active Protocol: Document 06/11/23 11:30 [facility] (Rec: 06/13/23 09:15 [facility] [id number]) Hip Goniometric Range of Motion Hip ROM Limitations Hip ROM Limitations Soft Tissue Tightness Comments iliopsoas tightness R greater than left with + dylan test on the right PT-OP-Q Treatments Start: 06/11/23 11:36 Freq: Status: Active Protocol: Document 01/30/24 13:45 [facility] (Rec: 02/05/24 12:47 [facility] [id number]) Manual Therapy Treatment Soft Tissue Mobilization adductor release on the right side Mobilization Type Myofascial Release Comments right adductor release in supine, knee straight and bent position manual release of the diaphragm Mobilization Type Myofascial Release Comments tightness across the fascial attachments to the rib cage, ivone tse tolerates this well manual iliospoas release Comments right side only in dylan test position manual quad MFR right side Body Location Right quad MFR Mobilization Type Myofascial Release Comments right sided quad guarding and tightness Manual Techniques manual hamstring and adductor stretch Type manual stretches Reps/Duration hold x 30 sec each Comments supine manual adductor and hamstring stretch B, better toleration of stretches today PT-OP-T Assessment and Plan Start: 06/11/23 11:36 Freq: Status: Active Protocol: Document 01/30/24 13:45 [facility] (Rec: 02/05/24 12:47 [facility] [id number]) Physical Therapy Assessment Assessment Summary Assessment Ivone Tse has not yet had her follow up to review CT scan results, will continue PT until she sees her MD Physical Therapy Plan Frequency and Duration Frequency of Treatment 1x/Week Duration of treatment (weeks) 8 Plan of Care Start Date 12/12/23 Plan of Care End Date 02/06/24 Therapeutic Interventions Therapeutic Interventions Home Exercise Program,Manual Therapy,Patient/Caregiver Education,Self-Care/Home Management,Soft Tissue Mobilization,Therapeutic Exercises Next Visit Focus/Plan Next Note Type Treatment Note Next Visit Plan continue to work on opening up the pecs, diaphraghm and abdominal fascia as well as LE stretches and manual release
--- NOTE | 2024-02-13 17:57 | PT.OTN ---
Current Diagnoses Muscle spasm of back (02/13/24) Pelvic and perineal pain (02/13/24) Other reduced mobility (02/13/24) Physical Therapy Treatment Note PT-OP-A Visit Information Start: 06/11/23 11:36 Freq: Status: Active Protocol: Document 02/13/24 13:45 [facility] (Rec: 02/13/24 17:55 [facility] [id number]) Out-Patient Physical Therapy Visit Information Visit Information Visit Type Treatment Note Visit Start Time 13:45 Visit Stop Time 14:30 Visit Number 24 PT-OP-B Current Condition Start: 06/11/23 11:36 Freq: Status: Active Protocol: Document 06/11/23 11:38 [facility] (Rec: 06/11/23 12:12 [facility] [id number]) Current Condition History of Current Condition History of Current Condition pt report ongoing pelvic pain and pain that, she feels a pulling and twisting sensation up to her right shoulder and upper right neck. Pain also extens into her low back region into the anterior pelvis. She describes a pulling and twisting pain PT-OP-C Subjective Start: 06/11/23 11:36 Freq: Status: Active Protocol: Document 02/13/24 13:45 [facility] (Rec: 02/13/24 14:35 [facility] [id number]) OP-PT Subjective Patient Comments Patient Comments ivone tse reports she has been feeling more unwinding and she has been sitting on a new cushion she feels is helping her PT-OP-F Manual Assessment Start: 06/11/23 11:36 Freq: Status: Active Protocol: Document 06/11/23 11:30 [facility] (Rec: 06/13/23 09:17 [facility] [id number]) Manual Assessments Soft Tissue Assessment Soft Tissue Mobility Assessment parapspinal guarding and increased tone throughout the thoracic and cervical spine adductor guarding/contracture R>L iliopsoas tightness R>L suboccipital muscle guarding and tightness Joint Mobility Assessment Joint Mobility Assessment thoracic kyphosis with rounded shoulders and anterior head position, multiple areas of hytomobility throughout the thoracic spine PT-OP-J Posture/Palpation/Skin Start: 06/11/23 11:36 Freq: Status: Active Protocol: Document 06/11/23 11:30 [facility] (Rec: 06/13/23 09:20 [facility] [id number]) Posture Evaluation Comments Posture Comments anterior head, rounded shoulders, thoracic kyphosis, anterior oblique tightness and decreased diaphragmatic excursion, pt breaths with upper neck Palpation Assessment Location iliopsoas R Palpation Findings Soft Tissue Tightness,Spasm, Muscle Guarding,Tenderness suboccitipals Palpation Findings Soft Tissue Tightness,Spasm, Muscle Guarding,Tenderness right adducotrs Palpation Findings Soft Tissue Tightness,Muscle Guarding,Tenderness Palpation Details tenderness along the pubic bone attachments of the adductors on the right side PT-OP-K Range of Motion Start: 06/11/23 11:36 Freq: Status: Active Protocol: Document 06/11/23 11:30 [facility] (Rec: 06/13/23 09:15 [facility] [id number]) Hip Goniometric Range of Motion Hip ROM Limitations Hip ROM Limitations Soft Tissue Tightness Comments iliopsoas tightness R greater than left with + dylan test on the right PT-OP-Q Treatments Start: 06/11/23 11:36 Freq: Status: Active Protocol: Document 02/13/24 13:45 [facility] (Rec: 02/13/24 17:55 [facility] [id number]) Therapeutic Exercises Supine Exercises lower trunk rotation Reps/Minutes x [address] diaphragmatic breathing Reps/Minutes x 10 reps iliopsoas stretch in supine in dylan test position Reps/Minutes hold 1-2 minutes Manual Therapy Treatment Soft Tissue Mobilization adductor release on the right side Mobilization Type Myofascial Release Comments right adductor release in supine, knee straight and bent position manual release of the diaphragm Mobilization Type Myofascial Release Comments tightness across the fascial attachments to the rib cage, ivone tse tolerates this well manual iliospoas release Comments right side only in dylan test position manual quad MFR right side Body Location Right quad MFR Mobilization Type Myofascial Release Comments right sided quad guarding and tightness PT-OP-T Assessment and Plan Start: 06/11/23 11:36 Freq: Status: Active Protocol: Document 02/13/24 13:45 [facility] (Rec: 02/13/24 17:55 [facility] [id number]) Physical Therapy Assessment Goals 3 Impairment guarding, tightness, pain of the adductor attachments to the pubic ramus, pain over the pubic tubercles bilaterally Nursing Home Goal (LTG) pt presents with SI alignnment that that is not being compressed or shifted due to tight muscles and adducors are no longer as tight and short. Pt has negative dylan test on the right Good progress and Irma presented with equal leg length the last couple of visits LTG Duration 12 weeks 2 Impairment upper neck breather with poor excursion of the diaphragm, pt has difficult expanding her belly with breathing and uses her upper neck muscles Short Term Goal (STG) pt is educated on diaphragmatic breathing Irma has been woring on her diaphragmatic breathing at home, she is still really limited in fascial mobility at the diaphragm good progress, pt is a smoker so tends to use accessory muscles and needs reminders to use her diaphragm STG Duration 4 weeks pain Impairment pelvic pain rated 7/10 worse with standing activities Senior [employer] Goal (LTG) Ivone Tse has overall decreased c/o pain and a HEP that she can continue with at home to manage her symptoms pain levels have not changed since last Progress report LTG Duration 12 weeks Assessment Summary Assessment At this time Ivone tse is independent with her home exercise program. Unfortunately despite efforts she continues to describe pelvic pain that wraps from the right groin up through the right side of her abdominal wall and into her shoulder and neck on the right side. She may benefit from dry needling and we have a skilled therapist at [facility] who will be doing dry needling soon. At this point she will be discharged from PT to a independent HEP Physical Therapy Plan Discharge Physical Therapy Discharge Reasons Plateau in Progress
== END 2024-03-09 11:04 | disposition home or self-care (01) ==
LOC: PHYS 13:45
PROVIDERS: Family Provider Family Medicine; PCP Family Medicine; Referring Provider Family Medicine; Visit Provider Family Medicine
DX: R10.2 Pelvic and perineal pain (principal); M62.830 Muscle spasm of back; Z74.09 Other reduced mobility
CPT/HCPCS: 97110; 97140; 97161

== ENCOUNTER → 2024-09-09 09:53 | Outpatient (CLI) | payer OTHER, MEDICAID, SELFPAY ==
--- NOTE | 2024-09-09 09:55 | DI.CT.S_ITS ---
PROCEDURE: CT LUNG LOW DOSE SCREENING INDICATIONS: screen lung cancer TECHNIQUE: Noncontrast 2.0-2.5 mm thick sections acquired from the pulmonary apices to the posterior costophrenic angles. 7 mm thick axial MIP, and 5 mm coronal and sagittal reformats were then acquired. For radiation dose reduction, the following was used: automated exposure control, adjustment of mA and/or kV according to patient size. COMPARISON: None. FINDINGS: Image quality: Diagnostic. Lower Neck: No enlarged lymph nodes. Thyroid: No thyroid nodules which require sonographic follow up, per consensus guidelines. Axillae: No enlarged lymph nodes. Chest Wall: Unremarkable. Bones: Osteoporosis. Lungs and Pleura: No pneumothorax or pleural effusions. Moderate centrilobular emphysema. 10 x 4 mm juxtapleural nodule with irregular margins in the right upper lobe (series 3, image 11). Calcified granuloma in the right lower lobe. Heart: Heart size is normal. No pericardial effusion.. Two vessel coronary calcifications. Thoracic Vessels: The aorta and pulmonary arteries demonstrate normal size. Mediastinum and Lorie: No enlarged lymph nodes. Esophagus: No wall thickening. No hiatal hernia. Upper Abdomen: Visualized upper abdomen solid organs and bowel loops appear normal. IMPRESSION: Juxtapleural nodule with irregular margins at the right lung apex. Findings likely represent a scar, less likely malignancy. LUNG-RADS 4a; three-month follow-up with low-dose chest CT Clinically Significant Non-pulmonary Findings: None. Dictated by: Mauricio Cooley M.D. on 09/09/2024 at 14:33 Approved by: Mauricio Cooley M.D. on 09/09/2024 at 14:38
[2024-09-09 11:01] LABS: Add Manual Diff / Slide Review NO; Basophils Absolute Auto 100 /uL (0-100); Eosinophils Absolute Auto 100 /uL (0-450); Hematocrit 43.6 % (36-46); Hemoglobin 14.6 g/dL (12.0-16.0); Lymphocytes Absolute Auto 1400 /uL (1100-4500); Lymphocytes Percent Auto 19.5 % (25-40); Mean Corpuscular HGB Conc 33.5 % (30-36); Mean Corpuscular Hemoglobin 29.3 PG (26-34); Mean Corpuscular Volume 87.5 fL (80-100); Monocytes Absolute Auto 600 /uL (0-900); Monocytes Percent Auto 8.1 % (3-14); Neutrophils Absolute Auto 4900 /uL (1500-7000); Neutrophils Percent Auto 69.4 % (50-75); Platelet Count 322 X10^3/uL (150-400); Red Blood Cell Count 4.98 X10^6/uL (4.0-5.2); Red Cell Distribution Width 13.9 % (11.6-14.8); White Blood Cell Count 7.1 X10^3/uL (4.5-11.0)
[2024-09-09 11:45] LABS: Alanine Aminotransferase 28 IU/L (<35); Albumin 4.1 g/dL (3.5-5.0); Albumin Globulin Ratio 1.4 (1.0-2.8); Alkaline Phosphatase 78 U/L (38-126); Aspartate Aminotransferase 26 IU/L (14-36); BUN Creatinine Ratio 12.5 (6-22); Bilirubin Total 0.4 mg/dL (0.2-1.3); Blood Urea Nitrogen 8 mg/dL (7-17); Calcium 9.7 mg/dL (8.4-10.2); Carbon Dioxide 25 mmol/L (22-32); Chloride 103 mmol/L (98-107); Cholesterol 262 mg/dL (140-199); Estimated Glomerular Filt Rate > 60 mL/min (>60); Glucose 121 mg/dL (80-110); HDL Cholesterol 61 mg/dL (40-60); HEMOLYSIS < 15 (0-50); LDL Cholesterol Calculated 177 mg/dL (<100); Sodium 136 mmol/L (137-145); Total Protein 7.1 g/dL (6.3-8.2); Triglycerides 121 mg/dL (35-150)
== END ==
LOC: CT 09:55
PROVIDERS: Family Provider Family Medicine; PCP Family Medicine; Referring Provider Family Medicine; Visit Provider Family Medicine
DX: F17.210 Nicotine dependence, cigarettes, uncomplicated (principal); J43.2 Centrilobular emphysema; R91.1 Solitary pulmonary nodule; Z12.2 Encounter for screening for malignant neoplasm of respiratory organs; I25.10 Atherosclerotic heart disease of native coronary artery without angina pectoris; E78.2 Mixed hyperlipidemia; I10 Essential (primary) hypertension
CPT/HCPCS: 36415; 71271; 80053; 80061; 85025

== ENCOUNTER → 2025-01-13 12:28 | Outpatient (CLI) | payer OTHER, MEDICAID, SELFPAY ==
--- NOTE | 2025-01-13 12:30 | DI.CT.S_ITS ---
PROCEDURE: CT LUNG LOW DOSE SCREENING INDICATIONS: current smoker lung screening TECHNIQUE: Noncontrast 2.0-2.5 mm thick sections acquired from the pulmonary apices to the posterior costophrenic angles. 7 mm thick axial MIP, and 5 mm coronal and sagittal reformats were then acquired. For radiation dose reduction, the following was used: automated exposure control, adjustment of mA and/or kV according to patient size. COMPARISON: [facility], CT, CT LUNG LOW DOSE SCREENING, 09/09/2024, 10:03. FINDINGS: Image quality: Diagnostic. Lower Neck: No enlarged lymph nodes. Thyroid: No thyroid nodules which require sonographic follow up, per consensus guidelines. Axillae: No enlarged lymph nodes. Chest Wall: Unremarkable. Bones: No suspicious osseous lesion. Lungs and Pleura: No pneumothorax or pleural effusions. Severe emphysematous change. Right upper lobe pulmonary nodule measuring 0.5 cm, (3/75), unchanged. No new or enlarging pulmonary nodules. No acute airspace opacity. Minimal secretions in the trachea. Heart: Heart size is normal. Mild coronary artery calcifications. No pericardial effusion. Thoracic Vessels: The aorta and pulmonary arteries demonstrate normal size. Mediastinum and Lorie: No enlarged lymph nodes. Esophagus: No wall thickening. No hiatal hernia. Upper Abdomen: Visualized upper abdomen solid organs and bowel loops appear normal. IMPRESSION: No suspicious pulmonary nodules. LUNG-RADS 2; continued annual screening, if eligible. Clinically Significant Non-pulmonary Findings: None. Dictated by: Leeroy Goodwin M.D. on 01/14/2025 at 8:27 Approved by: Leeroy Goodwin M.D. on 01/14/2025 at 8:32
== END ==
PROVIDERS: Family Provider Family Medicine; PCP Family Medicine; Referring Provider Family Medicine; Visit Provider Family Medicine
DX: R91.1 Solitary pulmonary nodule; I25.10 Atherosclerotic heart disease of native coronary artery without angina pectoris; Z12.2 Encounter for screening for malignant neoplasm of respiratory organs; F17.210 Nicotine dependence, cigarettes, uncomplicated
CPT/HCPCS: 71271